=== PATIENT | male | born 1965 | race Caucasian/White ===

== ENCOUNTER → 2017-11-01 | Outpatient (CLI) | payer OTHER ==
--- NOTE | 2017-11-01 15:29 | KCIC ---
Two-view left hip dated 11/01/2017. No comparison available. Clinical indication: Hip pain. History of avascular necrosis. FINDINGS: 2 views left hip show irregular zone of geographic sclerosis at the weightbearing surfaces femoral head. This appears to involve at least 50 percent of the articular surface. There is no subchondral collapse. Osseous structures otherwise unremarkable. IMPRESSION: Avascular necrosis of the left femoral head without definite subchondral collapse. If indicated, MRI could more accurately evaluate. Electronically signed by: Trent Lee MD (11/01/2017 3:25 PM) [id number]
== END | disposition home or self-care (01) ==
LOC: KCIC 13:15
PROVIDERS: ATTEND Family Medicine
DX: M87.852 Other osteonecrosis, left femur (principal)
CPT/HCPCS: 73502

== ENCOUNTER 2020-03-24 08:42 | Emergency (ER) | payer SELFPAY ==
[~2020-03-24] VITALS: Ht 175.3 cm; Wt 82.0 kg
[2020-03-24 09:42] VITALS: BP 126/80
[2020-03-24 09:46] LABS: BASO % 1 % (0-3); EOS # 0.2 x10^3/uL (0.0-0.7); EOS % 3 % (0-3); HEMATOCRIT 37.9 % (39.0-53.0); HEMOGLOBIN 12.9 g/dL (13.0-17.5); LYMPH # 1.1 x10^3/uL (1.0-4.8); LYMPH % 17 % (24-48); MEAN CORPUSCULAR HEMOGLOBIN 30 pg (25-35); MEAN CORPUSCULAR HGB CONC 34 g/dL (31-37); MEAN CORPUSCULAR VOLUME 90 fL (79-100); MONO # 0.7 x10^3/uL (0.0-1.1); MONO % 10 % (0-9); NEUT # 4.6 x10^3/uL (1.8-7.7); NEUT % 70 % (31-73); PLATELET COUNT 99 x10^3/uL (140-400); RED BLOOD COUNT 4.24 x10^6/uL (4.30-5.70); RED CELL DISTRIBUTION WIDTH 15.7 % (11.5-14.5); WHITE BLOOD COUNT 6.6 x10^3/uL (4.0-11.0)
[2020-03-24 09:54] LABS: CALCIUM 8.3 mg/dL (8.5-10.1); CREATININE 0.7 mg/dL (0.7-1.3); GFR 116.7; POTASSIUM 3.6 mmol/L (3.5-5.1)
[2020-03-24 09:58] LABS: ALBUMIN/GLOBULIN RATIO 1.2 (1.0-1.7); MAGNESIUM 1.6 mg/dL (1.8-2.4); TOTAL BILIRUBIN 0.6 mg/dL (0.2-1.0); TOTAL PROTEIN 7.4 g/dL (6.4-8.2)
--- NOTE | 2020-03-24 10:23 | PHYS DOC ---
Past Medical History Past Medical History: GERD, Hypertension Past Surgical History: Other Additional Past Surgical Histo: R hip replacement, hernia Smoking Status: Never Smoker Alcohol Use: Heavy Adult General Chief Complaint Chief Complaint: ALCOHOL INTOXICATION HPI HPI Patient is a 55 year old male with history of alcoholism who presents for medical screening exam by EMS. Patient has been binge drinking daily for the past 2-3 weeks and assumes 12-18 beers daily. Patient reports tremors and feeling unsteady on his feet. Denies chest pain palpitations, history of withdrawal seizures and hallucinations. No pain, nausea vomiting, hematemesis, coffee-ground emesis, melena. No recent falls or injuries. No other acute symptoms or complaints. [] Review of Systems Review of Systems ROS All other systems were reviewed and found to be within normal limits, except as documented in this note. Current Medications Current Medications Current Medications Medications (Trade) Dose Ordered Sig/Sheri Start Time Stop Time Status Last Admin Dose Admin Lorazepam (Ativan) 2 mg 1X ONCE 03/24/20 10:45 03/24/20 10:46 UNV Physical Exam Physical Exam Constitutional: Well developed, well nourished, no acute distress, non-toxic appearance. [] HENT: Normocephalic, atraumatic, bilateral external ears normal, oropharynx moist, nose normal. [] Eyes: PERRLA, EOMI, conjunctiva normal. [] Neck: Normal range of motion, no tenderness. [] Cardiovascular:Heart rate regular rhythm, no murmur [] Lungs & Thorax: Bilateral breath sounds clear to auscultation [] Abdomen: Bowel sounds normal, soft, no tenderness. [] Skin: Warm, dry, no erythema, no rash. [] Back: No tenderness. [] Extremities: No tenderness, no edema. [] Neurologic: Alert and oriented X 3, normal motor function, normal sensory function, no focal deficits noted. [] Psychologic: Affect normal, judgement normal, mood normal. [] Current Patient Data Vital Signs Vital Signs Date Time Temp Pulse Resp B/P (MAP) Pulse Ox O2 Delivery O2 Flow Rate FiO2 03/24/20 09:42 86 16 126/80 (95) 95 Room Air 03/24/20 08:56 97.5 97.5 Lab Values Laboratory Tests Test 03/24/20 09:34 White Blood Count 6.6 x10^3/uL (4.0-11.0) Red Blood Count 4.24 x10^6/uL (4.30-5.70) L Hemoglobin 12.9 g/dL (13.0-17.5) L Hematocrit 37.9 % (39.0-53.0) L Mean Corpuscular Volume 90 fL (79-100) Mean Corpuscular Hemoglobin 30 pg (25-35) Mean Corpuscular Hemoglobin Concent 34 g/dL (31-37) Red Cell Distribution Width 15.7 % (11.5-14.5) H Platelet Count 99 x10^3/uL (140-400) L Neutrophils (%) (Auto) 70 % (31-73) Lymphocytes (%) (Auto) 17 % (24-48) L Monocytes (%) (Auto) 10 % (0-9) H Eosinophils (%) (Auto) 3 % (0-3) Basophils (%) (Auto) 1 % (0-3) Neutrophils # (Auto) 4.6 x10^3/uL (1.8-7.7) Lymphocytes # (Auto) 1.1 x10^3/uL (1.0-4.8) Monocytes # (Auto) 0.7 x10^3/uL (0.0-1.1) Eosinophils # (Auto) 0.2 x10^3/uL (0.0-0.7) Basophils # (Auto) 0.0 x10^3/uL (0.0-0.2) Sodium Level 127 mmol/L (136-145) L Potassium Level 3.6 mmol/L (3.5-5.1) Chloride Level 87 mmol/L (98-107) L Carbon Dioxide Level 25 mmol/L (21-32) Anion Gap 15 (6-14) H Blood Urea Nitrogen 6 mg/dL (8-26) L Creatinine 0.7 mg/dL (0.7-1.3) Estimated GFR (Cockcroft-Gault) 116.7 BUN/Creatinine Ratio 9 (6-20) Glucose Level 92 mg/dL (70-99) Calcium Level 8.3 mg/dL (8.5-10.1) L Magnesium Level 1.6 mg/dL (1.8-2.4) L Total Bilirubin 0.6 mg/dL (0.2-1.0) Aspartate Amino Transferase (AST) 126 U/L (15-37) H Alanine Aminotransferase (ALT) 75 U/L (16-63) H Alkaline Phosphatase 53 U/L (46-116) Total Protein 7.4 g/dL (6.4-8.2) Albumin 4.0 g/dL (3.4-5.0) Albumin/Globulin Ratio 1.2 (1.0-1.7) Laboratory Tests 03/24/20 09:34 Laboratory Tests 03/24/20 09:34 EKG EKG [] Radiology/Procedures Radiology/Procedures ] Course & Med Decision Making Course & Med Decision Making Pertinent Labs and Imaging studies reviewed. (See chart for details) [Alcoholic potomania with withdrawl tremors in the ED. Hospital admission recommended. Patient declines hospital admission and will be discharged upon his request. Ativan given prior to discharge. Will treat withdrawal symptoms. Patient's spouse to take patient home. ] Dragon Disclaimer Dragon Disclaimer This electronic medical record was generated, in whole or in part, using a voice recognition dictation system. Departure Departure Impression: Primary Impression: Withdrawal symptoms, alcohol Additional Impression: Hyponatremia Disposition: 01 HOME, SELF-CARE Condition: STABLE Referrals: JENNI DURHAM MD (PCP) Patient Instructions: Alcohol Withdrawal, Hyponatremia, [id number] Additional Instructions: Please follow-up with outpatient rehabilitation and AA sponsor. Take daily multivitamin and Ativan for withdrawal symptoms. Return to the ED if new or wo rsening symptoms. Problem Qualifiers DELORES ESCALANTE DO Mar 24, 2020 10:23
[2020-03-24] MEDS ORDERED: LORA-434 PO (10:44)
[2020-03-24] MEDS ORDERED: LORazepam 0.5 MG TABLET PO ONE (10:45)
== END 2020-03-24 13:33 | disposition home or self-care (01) ==
LOC: ER 08:42
DX: F10.239 Alcohol dependence with withdrawal, unspecified (principal); Y90.9 Presence of alcohol in blood, level not specified; E87.1 Hypo-osmolality and hyponatremia; K21.9 Gastro-esophageal reflux disease without esophagitis; I10 Essential (primary) hypertension
CPT/HCPCS: 36415; 80053; 83735; 85025; 99284

== ENCOUNTER 2020-06-15 17:36 | Inpatient (IN) | payer SELFPAY ==
[~2020-06-15] VITALS: Ht 152.4 cm; Wt 65.6 kg
[~2020-06-15 17:36] MED LIST: LORA-434 PO
[2020-06-15] MEDS ORDERED: IV NORMAL SALINE 1000ML BAG 1,000 ML IV SCH (17:43)
--- NOTE | 2020-06-15 17:43 | PHYS DOC ---
Past Medical History Past Medical History: GERD, Hypertension Past Surgical History: Other Additional Past Surgical Histo: R hip replacement, hernia Smoking Status: Never Smoker Alcohol Use: Heavy General Adult HPI: HPI: Patient is a 55 year old male who presents emergency department with altered mental status. Patient cannot provide any history. History is obtained from paramedics. They state his daughter found him unresponsive and stiff. She states he is a severe alcoholic and drinks 30-50 beers per day. She states he was arrested for DUI yesterday so he is not drank since last night. Patient cannot tell me what day it is or where he is at. He does know his name. He has no focal neuro deficits and is moving all of his extremities. Review of Systems: Review of Systems: Constitutional: Denies fever or chills. [] Eyes: Denies change in visual acuity. [] HENT: Denies nasal congestion or sore throat. [] Respiratory: Denies cough or shortness of breath. [] Cardiovascular: Denies chest pain or edema. [] GI: Denies abdominal pain, nausea, vomiting, bloody stools or diarrhea. [] : Denies dysuria. [] Musculoskeletal: Denies back pain or joint pain. [] Integument: Denies rash. [] Neurologic: Denies headache, focal weakness or sensory changes. [] Endocrine: Denies polyuria or polydipsia. [] Lymphatic: Denies swollen glands. [] Psychiatric: Denies depression or anxiety. [] Heart Score: Risk Factors: Risk Factors: DM, Current or recent (<one month) smoker, HTN, HLP, family history of CAD, obesity. Risk Scores: Score 0 - 3: 2.5% MACE over next 6 weeks - Discharge Home Score 4 - 6: 20.3% MACE over next 6 weeks - Admit for Clinical Observation Score 7 - 10: 72.7% MACE over next 6 weeks - Early Invasive Strategies Allergies: Allergies: Allergies Coded Allergies Type Severity Reaction Last Updated Verified No Known Drug Allergies 03/24/20 No Physical Exam: PE: Constitutional: Middle aged male who appears slightly agitated] HENT: Normocephalic, atraumatic, bilateral external ears normal, oropharynx moist, no oral exudates, nose normal. [] Eyes: PERRLA, EOMI, conjunctiva normal, no discharge. [] Neck: Normal range of motion, no tenderness, supple, no stridor. [] Cardiovascular:Tachycardic Lungs & Thorax: Bilateral breath sounds clear to auscultation [] Abdomen: Bowel sounds normal, soft, no tenderness, no masses, no pulsatile masses. [] Skin: Warm, dry, no erythema, no rash. [] Back: No tenderness, no CVA tenderness. [] Extremities: No tenderness, no cyanosis, no clubbing, ROM intact, no edema. [] Neurologic: Alert to person only. Patient is with resting tremor] Psychologic: mild agitation EKG: EKG: [] Radiology/Procedures: Radiology/Procedures: [] Course & Med Decision Making: Course & Med Decision Making Pertinent Labs and Imaging studies reviewed. (See chart for details) Patient with likely alcohol withdrawal. He appears to be in delirium tremens. He will be given Ativan and IV fluids. He will need to be admitted for alcohol withdrawal. Dragon Disclaimer: Dragon Disclaimer: This electronic medical record was generated, in whole or in part, using a voice recognition dictation system. Departure Departure Impression: Primary Impression: Delirium tremens Additional Impression: Alcohol withdrawal delirium Disposition: ADMITTED INPATIENT Admitting Physician: SHADIA Condition: GUARDED Referrals: JENNI DURHAM MD (PCP) Justicifation of Admission Dx: Justifications for Admission: Justification of Admission Dx: Yes Critical Care Time Critical care time was [35] minutes exclusive of procedures. Time was spent at the bedside, reassessment, discussion with family, documenting, reviewing labs and records. LAUREL SUTTON DO Jun 15, 2020 17:43
[2020-06-15] MEDS ORDERED: MULTIVIT INFUSN,ADULT 4,VIT K 10 ML, THIAMINE INJ 100 MG, FOLIC ACID INJ 1 MG in IV NOR... IV ONE ×2 (17:45→22:15)
[2020-06-15 18:15] LABS: BASO # 0.1 x10^3/uL (0.0-0.2); BASO % 1 % (0-3); EOS % 0 % (0-3); HEMATOCRIT 38.3 % (39.0-53.0); HEMOGLOBIN 13.6 g/dL (13.0-17.5); LYMPH # 0.5 x10^3/uL (1.0-4.8); LYMPH % 5 % (24-48); MEAN CORPUSCULAR HEMOGLOBIN 34 pg (25-35); MEAN CORPUSCULAR HGB CONC 36 g/dL (31-37); MEAN CORPUSCULAR VOLUME 95 fL (79-100); MONO # 0.9 x10^3/uL (0.0-1.1); MONO % 8 % (0-9); NEUT # 9.2 x10^3/uL (1.8-7.7); NEUT % 86 % (31-73); PLATELET COUNT 152 x10^3/uL (140-400); RED BLOOD COUNT 4.03 x10^6/uL (4.30-5.70); RED CELL DISTRIBUTION WIDTH 13.2 % (11.5-14.5); WHITE BLOOD COUNT 10.7 x10^3/uL (4.0-11.0)
[2020-06-15 18:23] LABS: CALCIUM 9.2 mg/dL (8.5-10.1); GFR 77.3; POTASSIUM 3.2 mmol/L (3.5-5.1)
[2020-06-15 18:24] LABS: PROTHROMBIN TIME PATIENT 12.3 SEC (11.7-14.0)
[2020-06-15 18:31] LABS: ALBUMIN 4.2 g/dL (3.4-5.0); DIRECT BILIRUBIN 0.5 mg/dL (0.0-0.2); MAGNESIUM 1.7 mg/dL (1.8-2.4); TOTAL BILIRUBIN 1.8 mg/dL (0.2-1.0); TOTAL PROTEIN 8.2 g/dL (6.4-8.2)
[2020-06-15 19:34] LABS: % LYMPHS 7 % (24-48); % MONOS 7 % (0-10); % SEGS 86 % (35-66)
[2020-06-15 19:35] LABS: PLT ESTIMATE ADEQUATE (ADEQUATE); TOXIC GRANULATION SLIGHT
--- NOTE | 2020-06-15 19:38 | RAD ---
Exam: CT head INDICATION: Altered mental status TECHNIQUE: Sequential axial images through the head were obtained without the administration of IV contrast. Comparisons: None FINDINGS: No focal parenchymal lesion or hemorrhage is identified. There is no midline shift or sulcal effacement. No acute vascular territory infarction is identified. Damian-white distinction is preserved. The ventricular system is within normal limits without compression hydrocephalus. The basal cisterns are well maintained. The visualized portions of the paranasal sinuses and mastoid air cells are well-pneumatized. No acute fractures. IMPRESSION: No acute intracranial abnormality. Exposure: One or more of the following in the visualized dose reduction techniques were utilized for this examination: 1. Automated exposure control 2. Adjustment of the MA and/or KV according to patient size Use of iterative of reconstructive technique Electronically signed by: Kavitha Hanson MD (06/15/2020 7:35 PM) [id number]
[2020-06-15] MEDS ORDERED: cloNIDine HCL 0.1 MG TABLET PO PRN (19:45)
[2020-06-15] MEDS ORDERED: LORazepam 1 MG TABLET PO PRN ×2 (19:45)
[2020-06-15] MEDS: ENOXAPARIN 40 MG/0.4 ML SYRINGE. SQ SCH (20:04)
--- NOTE | 2020-06-15 20:52 | PDOC1 ---
History and Physical Date of Admission: Date of Admission DATE: 06/15/20 TIME: 20:30 History of Present Illness: HPI: Patient is a 55-year-old male with past medical history of GERD, hypertension, and heavy chronic alcohol abuse for many years who is brought to the ED after being found unresponsive at home by her daughter. Most of the history was obtained from the patient's who states that the patient was arrested for DUI the day before and he has not had an alcoholic drink since released from halfway. When found down at home, there was no incontinence or stooling. Patient's states that he is a severe alcoholic drinks about 30-50 beers per day. He has multiple falls at home and has had multiple ecchymosis on his body. Currently upon questioning the patient is only able to respond to his name. But he does not know the location of the time. He is extremely agitated and distracted with questioning. Past Medical/Surgical History: PMH/PSH: Asthma, GERD, Hypertension R hip replacement, hernia Allergies: Allergies: Coded Allergies: No Known Drug Allergies (Unverified , 03/24/20) Family History: Family History: None Social History: Social History: Denies smoking Patient is a heavy drinker of about 30 bottles 16 ounces of beer daily. He has been drinking like this for a long time Denies drug abuse Current Medications: Current Medications Current Medications Sodium Chloride 1,000 ml @ 1,000 mls/hr Q1H IV Last administered on 06/15/20at 18:08; Start 06/15/20 at 17:43; Stop 06/15/20 at 18:42; Status DC Multivitamins 10 ml/Thiamine HCl 100 mg/Folic Acid 1 mg/Sodium Chloride 1,011.2 ml @ 1,000 mls/ hr 1X ONCE IV Last administered on 06/15/20at 18:16; Start 06/15/20 at 17:45; Stop 06/15/20 at 18:45; Status DC Lorazepam (Ativan Inj) 2 mg 1X ONCE IVP Last administered on 06/15/20at 18:07; Start 06/15/20 at 17:45; Stop 06/15/20 at 17:48; Status DC Lorazepam (Ativan Inj) 2 mg 1X ONCE IVP Last administered on 06/15/20at 18:49; Start 06/15/20 at 19:00; Stop 06/15/20 at 19:01; Status DC Multivitamins 10 ml/Thiamine HCl 100 mg/Folic Acid 1 mg/Sodium Chloride 1,011.2 ml @ 100 mls/ hr DAILY IV ; Start 06/16/20 at 09:00; Stop 06/19/20 at 19:07 Multivitamins (Thera M Plus) 1 tab DAILY PO ; Start 06/20/20 at 09:00 Folic Acid (Folic Acid) 1 mg DAILY PO ; Start 06/20/20 at 09:00 Thiamine HCl 300 mg/Dextrose 53 ml @ 100 mls/hr DAILY IV ; Start 06/20/20 at 09:00; Stop 06/24/20 at 09:32 Lorazepam (Ativan) 4 mg PRN Q1HR PRN PO For CIWA 8-14; Start 06/15/20 at 19:45 Lorazepam (Ativan) 8 mg PRN Q1HR PRN PO For CIWA 15 or greater; Start 06/15/20 at 19:45 Haloperidol Lactate (Haldol Inj) 5 mg PRN Q4HRS PRN IVP Hallucinatns,Confusn,Delirium; Start 06/15/20 at 19:45 Diphenhydramine HCl (Benadryl) 25 mg PRN Q15MIN PRN IVP EPS symptoms 2'Haldol admin; Start 06/15/20 at 19:45 Clonidine HCl (Catapres) 0.1 mg PRN Q1HR PRN PO SBP > 180 or DBP > 100, MRX3; Start 06/15/20 at 19:45 Lorazepam (Ativan Inj) 2 mg PRN Q15MIN PRN IV SEE COMMENTS Last administered on 06/15/20at 19:54; Start 06/15/20 at 19:45 Enoxaparin Sodium (Lovenox 40mg Syringe) 40 mg Q24H SQ Last administered on 06/15/20at 20:04; Start 06/15/20 at 20:00 Heparin Sodium (Porcine) (Heparin Sodium) 5,000 unit Q12HR SQ ; Start 06/15/20 at 21:00; Status UNV Active Scripts Active Ativan (Lorazepam) 1 Mg Tablet 2 Mg PO TID 7 Days ROS: Review of Systems Review of System REVIEW OF SYSTEMS: GENERAL: Denies weakness SKIN: No bruising, hair changes or rashes. EYES: No blurred, double or loss of vision. NOSE AND THROAT: No history of nosebleeds, hoarseness or sore throat. HEART: No history of palpitations, chest pain or shortness of breath on exertion. LUNGS: Denies cough, hemoptysis, wheezing or shortness of breath. GASTROINTESTINAL: Denies changes in appetite, nausea, vomiting, diarrhea or constipation. GENITOURINARY: No history of frequency, urgency, hesitancy or nocturia. NEUROLOGIC: Denies history of numbness, tingling, or tremor. PSYCHIATRIC: No history of panic, anxiety or depression. ENDOCRINE: No history of heat or cold intolerance, polyuria or polydipsia. EXTREMITIES: Denies joint pain, pain on walking or stiffness. Physical Exam: Vital Signs: Vital Signs Date Time Temp Pulse Resp B/P (MAP) Pulse Ox O2 Delivery O2 Flow Rate FiO2 06/15/20 19:47 82 144/100 (115) 97 Room Air 06/15/20 18:17 22 06/15/20 17:51 98.5 98.5 Physcial Exam: GEN: Patient has moderate agitation on examination. HEENT: Normal cephalic, atraumatic, external auditory canals are patent. Dry mucous membranes. There is some nystagmus on exam EYES: Extraocular muscles are intact, pupil are equally round and reactive to light and accommodation MUSCULOSKELETAL: Patient has coarse tremors and asterixis on exam. ENDOCRINE: No thyromegaly was palpated LYMPHATICS: No cervical chain or axillary nodes were noted HEMATOPOIETIC: No bruising NECK: Supple, no JVD, no thyromegaly was noted LUNGS: Clear to auscultation in all lung archer without rhonchi or wheezing HEART: RRR, S!, S2 present. Peripheral pulses intact, no obvious murmurs noted ABDOMEN: Soft, nontender. Positive bowel sounds, no organomegaly, normal bowel sounds EXTREMITIES: Without clubbing, cyanosis, or edema. Pedal pulses intact. Negative Homans sign NEUROLOGIC: Patient is alert and awake and oriented only to himself. He is able to follow commands. He is has intention tremors. He appears to be very agitated attempts to scratch himself picked at his monitor leads persistently. PSYCHIATRIC: Normal affect, normal mood. Stable SKIN: No ulcerations or rashes, good skin turgor, no jaundice VASCULAR: Good capillary refill, neurovascular bundle appears to be intact Labs: Labs: Laboratory Tests Test 06/15/20 18:06 White Blood Count 10.7 x10^3/uL (4.0-11.0) Red Blood Count 4.03 x10^6/uL (4.30-5.70) Hemoglobin 13.6 g/dL (13.0-17.5) Hematocrit 38.3 % (39.0-53.0) Mean Corpuscular Volume 95 fL (79-100) Mean Corpuscular Hemoglobin 34 pg (25-35) Mean Corpuscular Hemoglobin Concent 36 g/dL (31-37) Red Cell Distribution Width 13.2 % (11.5-14.5) Platelet Count 152 x10^3/uL (140-400) Neutrophils (%) (Auto) 86 % (31-73) Lymphocytes (%) (Auto) 5 % (24-48) Monocytes (%) (Auto) 8 % (0-9) Eosinophils (%) (Auto) 0 % (0-3) Basophils (%) (Auto) 1 % (0-3) Neutrophils # (Auto) 9.2 x10^3/uL (1.8-7.7) Lymphocytes # (Auto) 0.5 x10^3/uL (1.0-4.8) Monocytes # (Auto) 0.9 x10^3/uL (0.0-1.1) Eosinophils # (Auto) 0.0 x10^3/uL (0.0-0.7) Basophils # (Auto) 0.1 x10^3/uL (0.0-0.2) Segmented Neutrophils % 86 % (35-66) Lymphocytes % 7 % (24-48) Monocytes % 7 % (0-10) Toxic Granulation Slight Platelet Estimate Adequate (ADEQUATE) Prothrombin Time 12.3 SEC (11.7-14.0) Prothromb Time International Ratio 1.0 (0.8-1.1) Activated Partial Thromboplast Time 25 SEC (24-38) Sodium Level 125 mmol/L (136-145) Potassium Level 3.2 mmol/L (3.5-5.1) Chloride Level 85 mmol/L (98-107) Carbon Dioxide Level 27 mmol/L (21-32) Anion Gap 13 (6-14) Blood Urea Nitrogen 11 mg/dL (8-26) Creatinine 1.0 mg/dL (0.7-1.3) Estimated GFR (Cockcroft-Gault) 77.3 Glucose Level 127 mg/dL (70-99) Calcium Level 9.2 mg/dL (8.5-10.1) Magnesium Level 1.7 mg/dL (1.8-2.4) Total Bilirubin 1.8 mg/dL (0.2-1.0) Direct Bilirubin 0.5 mg/dL (0.0-0.2) Aspartate Amino Transf (AST/SGOT) 51 U/L (15-37) Alanine Aminotransferase (ALT/SGPT) 44 U/L (16-63) Alkaline Phosphatase 57 U/L (46-116) Total Protein 8.2 g/dL (6.4-8.2) Albumin 4.2 g/dL (3.4-5.0) Ethyl Alcohol Level < 10 mg/dL (0-10) Laboratory Tests Test 06/15/20 18:06 White Blood Count 10.7 x10^3/uL (4.0-11.0) Red Blood Count 4.03 x10^6/uL (4.30-5.70) Hemoglobin 13.6 g/dL (13.0-17.5) Hematocrit 38.3 % (39.0-53.0) Mean Corpuscular Volume 95 fL (79-100) Mean Corpuscular Hemoglobin 34 pg (25-35) Mean Corpuscular Hemoglobin Concent 36 g/dL (31-37) Red Cell Distribution Width 13.2 % (11.5-14.5) Platelet Count 152 x10^3/uL (140-400) Neutrophils (%) (Auto) 86 % (31-73) Lymphocytes (%) (Auto) 5 % (24-48) Monocytes (%) (Auto) 8 % (0-9) Eosinophils (%) (Auto) 0 % (0-3) Basophils (%) (Auto) 1 % (0-3) Neutrophils # (Auto) 9.2 x10^3/uL (1.8-7.7) Lymphocytes # (Auto) 0.5 x10^3/uL (1.0-4.8) Monocytes # (Auto) 0.9 x10^3/uL (0.0-1.1) Eosinophils # (Auto) 0.0 x10^3/uL (0.0-0.7) Basophils # (Auto) 0.1 x10^3/uL (0.0-0.2) Segmented Neutrophils % 86 % (35-66) Lymphocytes % 7 % (24-48) Monocytes % 7 % (0-10) Toxic Granulation Slight Platelet Estimate Adequate (ADEQUATE) Prothrombin Time 12.3 SEC (11.7-14.0) Prothromb Time International Ratio 1.0 (0.8-1.1) Activated Partial Thromboplast Time 25 SEC (24-38) Sodium Level 125 mmol/L (136-145) Potassium Level 3.2 mmol/L (3.5-5.1) Chloride Level 85 mmol/L (98-107) Carbon Dioxide Level 27 mmol/L (21-32) Anion Gap 13 (6-14) Blood Urea Nitrogen 11 mg/dL (8-26) Creatinine 1.0 mg/dL (0.7-1.3) Estimated GFR (Cockcroft-Gault) 77.3 Glucose Level 127 mg/dL (70-99) Calcium Level 9.2 mg/dL (8.5-10.1) Magnesium Level 1.7 mg/dL (1.8-2.4) Total Bilirubin 1.8 mg/dL (0.2-1.0) Direct Bilirubin 0.5 mg/dL (0.0-0.2) Aspartate Amino Transf (AST/SGOT) 51 U/L (15-37) Alanine Aminotransferase (ALT/SGPT) 44 U/L (16-63) Alkaline Phosphatase 57 U/L (46-116) Total Protein 8.2 g/dL (6.4-8.2) Albumin 4.2 g/dL (3.4-5.0) Ethyl Alcohol Level < 10 mg/dL (0-10) Assessment/Plan Assessment/Plan Acute alcohol withdrawal Acute electrolyte derangement Acute metabolic encephalopathy Concern for Wernicke's encephalopathy Acute syncopal episode Multiple falls Asthma Hypertension Admit to ICU for close monitoring Start CIWA treatment protocol Continue banana bag replacement Add additional thiamine 300 mg IV daily Repeat chemistries in the morning Fall precautions Every [address] head Lovenox for DVT prophylaxis Regular diet Full code Discussed with business management analyst consult for discharge planning Justicifation of Admission Dx: Justifications for Admission: Justification of Admission Dx: Yes NURY HANDY MD Jun 15, 2020 20:52
[2020-06-15] MEDS ORDERED: HEPARIN for SUB-Q USE 5,000 UNIT/ML VIAL. SQ SCH (21:00)
[2020-06-15 21:30] VITALS: BP 152/90
[2020-06-15 22:00] VITALS: BP 125/79
[2020-06-15] MEDS: IV RINGERS,LACTATED 1000ML 1,000 ML IV SCH (22:39)
[2020-06-15] MEDS: diphenhydrAMINE 50 MG/ML VIAL IVP PRN (22:42)
[2020-06-15] MEDS: HALOPERIDOL LACTATE 5 MG/ML VIAL. IVP PRN (22:42)
[2020-06-15] MEDS: NICOTINE 21MG PATCH. TD SCH (22:44)
[2020-06-15 23:00] VITALS: BP 111/69
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
[2020-06-16] VITALS (24 sets, daily range): BP systolic 82–169; BP diastolic 54–101
[2020-06-16] MEDS: HALOPERIDOL LACTATE 5 MG/ML VIAL. IVP PRN (04:01)
[2020-06-16] MEDS: diphenhydrAMINE 50 MG/ML VIAL IVP PRN (04:01)
[2020-06-16 04:41] LABS: BASO % 0 % (0-3); EOS % 1 % (0-3); HEMATOCRIT 34.1 % (39.0-53.0); HEMOGLOBIN 11.6 g/dL (13.0-17.5); LYMPH # 0.7 x10^3/uL (1.0-4.8); LYMPH % 10 % (24-48); MEAN CORPUSCULAR HEMOGLOBIN 33 pg (25-35); MEAN CORPUSCULAR HGB CONC 34 g/dL (31-37); MEAN CORPUSCULAR VOLUME 96 fL (79-100); MONO # 0.6 x10^3/uL (0.0-1.1); MONO % 9 % (0-9); NEUT # 5.6 x10^3/uL (1.8-7.7); NEUT % 80 % (31-73); PLATELET COUNT 104 x10^3/uL (140-400); RED BLOOD COUNT 3.55 x10^6/uL (4.30-5.70); WHITE BLOOD COUNT 6.9 x10^3/uL (4.0-11.0)
[2020-06-16 05:09] LABS: ALBUMIN 3.4 g/dL (3.4-5.0); CALCIUM 7.8 mg/dL (8.5-10.1); CREATININE 0.7 mg/dL (0.7-1.3); GFR 116.7; TOTAL BILIRUBIN 1.2 mg/dL (0.2-1.0); TOTAL PROTEIN 6.8 g/dL (6.4-8.2)
[2020-06-16 05:24] LABS: POTASSIUM 2.5 mmol/L (3.5-5.1)
[2020-06-16] MEDS ORDERED: IV NORMAL SALINE 500ML BAG 500 ML IV PRN (05:45)
[2020-06-16] MEDS ORDERED: ATROPINE 0.5 MG/5 ML DISP.SYRINGE. IV PRN (05:45)
[2020-06-16] MEDS: POTASSIUM CHLORIDE 10MEQ 100 ML IV SCH ×12 (05:50→14:37)
[2020-06-16] MEDS: DEXMEDETOMIDINE 400 MCG in IV NORMAL SALINE 100ML 96 ML IV PRN ×3 (05:53→20:14)
--- NOTE | 2020-06-16 06:18 | EKG ---
[facility] [address] [place] [address] Test Date: 2020-06-15 Test Time: 18:06:52 Pat Name: JHONATAN RAMON Department: Room: Gender: M [employer]: : 1965 Requested By: LAUREL SUTTON Order Number: [id number] Reading MD: Measurements Intervals [place] Rate: 69 P: -35 MD: 166 QRS: -8 QRSD: 88 T: 39 QT: 426 QTc: 458 Interpretive Statements SINUS RHYTHM LEFTWARD AXIS INCOMPLETE RIGHT BUNDLE BRANCH BLOCK OTHERWISE NORMAL ECG RI6.01 Compared to ECG 06/15/2020 18:05:04 Left-axis deviation now present
[2020-06-16 08:27] LABS: BASE EXCESS ABG 0 mmol/L (-3-3); HCO3 ABG 24 mmol/L (21-28); PCO2 ABG 36 mmHg (35-46); PO2 ABG 55 mmHg (75-108); SAT O2 ABG 87 % (92-99)
[2020-06-16] MEDS: IV RINGERS,LACTATED 1000ML 1,000 ML IV SCH ×2 (08:30→18:30)
[2020-06-16] MEDS ORDERED: THIAMINE INJ 300 MG in IV DEXTROSE 5% 50 ML IV SCH (09:00)
[2020-06-16 09:04] LABS: FIO2 ABG 60
[2020-06-16] MEDS ORDERED: QUIN40TA16 PO (09:10)
[2020-06-16] MEDS ORDERED: ATEN100T PO (09:10)
[2020-06-16] MEDS ORDERED: GABA300C18 PO (09:10)
[2020-06-16] MEDS ORDERED: OMEP40CA45 PO (09:10)
[2020-06-16] MEDS ORDERED: AMLO5TAB4 PO (09:10)
[2020-06-16] MEDS ORDERED: FLUO20CA20 PO (09:10)
[2020-06-16] MEDS: NICOTINE 21MG PATCH. TD SCH (10:38)
[2020-06-16] MEDS: MULTIVIT INFUSN,ADULT 4,VIT K 10 ML, THIAMINE INJ 100 MG, FOLIC ACID INJ 1 MG in IV NOR... IV SCH (10:38)
--- NOTE | 2020-06-16 10:49 | PDOC ---
PROGRESS NOTES Chief Complaint Chief Complaint ASSESSMENT Acute Hypoxic Resp Failure Acute Encephalopathy Severe EtOH Withdrawal with hx of EtOH seizure Hypokalemia Recent Incarceration COVID-19 rule out Thrombocytopenia ASSESSMENT monitor in ICU continue BIPAP support, blood gas okay. low threshold to intubate if resp status does not improve continue precidex drip/ativan etoh withdrawal protocol replace K+ pulm consult family updated on plan of care DVT PPX FULL CODE History of Present Illness History of Present Illness in resp distress this AM breathing 30x/min. ABG ordered and looks okay. trial of BIPAP this AM. family updated at bedside on plan of care. Vitals Vitals Vital Signs Date Time Temp Pulse Resp B/P (MAP) Pulse Ox O2 Delivery O2 Flow Rate FiO2 06/16/20 10:07 92 BiPAP/CPAP 06/16/20 07:00 98.0 120 28 83/54 (64) 3.0 98.0 Physical Exam General: moderate distress, Other Heart: Regular rate Lungs: Clear Abdomen: Normal bowel sounds, Soft Extremities: No clubbing, No cyanosis Skin: No rashes Labs LABS Laboratory Tests Test 06/15/20 18:06 06/16/20 04:16 06/16/20 08:00 White Blood Count 10.7 x10^3/uL (4.0-11.0) 6.9 x10^3/uL (4.0-11.0) Red Blood Count 4.03 x10^6/uL (4.30-5.70) 3.55 x10^6/uL (4.30-5.70) Hemoglobin 13.6 g/dL (13.0-17.5) 11.6 g/dL (13.0-17.5) Hematocrit 38.3 % (39.0-53.0) 34.1 % (39.0-53.0) Mean Corpuscular Volume 95 fL (79-100) 96 fL (79-100) Mean Corpuscular Hemoglobin 34 pg (25-35) 33 pg (25-35) Mean Corpuscular Hemoglobin Concent 36 g/dL (31-37) 34 g/dL (31-37) Red Cell Distribution Width 13.2 % (11.5-14.5) 13.0 % (11.5-14.5) Platelet Count 152 x10^3/uL (140-400) 104 x10^3/uL (140-400) Neutrophils (%) (Auto) 86 % (31-73) 80 % (31-73) Lymphocytes (%) (Auto) 5 % (24-48) 10 % (24-48) Monocytes (%) (Auto) 8 % (0-9) 9 % (0-9) Eosinophils (%) (Auto) 0 % (0-3) 1 % (0-3) Basophils (%) (Auto) 1 % (0-3) 0 % (0-3) Neutrophils # (Auto) 9.2 x10^3/uL (1.8-7.7) 5.6 x10^3/uL (1.8-7.7) Lymphocytes # (Auto) 0.5 x10^3/uL (1.0-4.8) 0.7 x10^3/uL (1.0-4.8) Monocytes # (Auto) 0.9 x10^3/uL (0.0-1.1) 0.6 x10^3/uL (0.0-1.1) Eosinophils # (Auto) 0.0 x10^3/uL (0.0-0.7) 0.0 x10^3/uL (0.0-0.7) Basophils # (Auto) 0.1 x10^3/uL (0.0-0.2) 0.0 x10^3/uL (0.0-0.2) Segmented Neutrophils % 86 % (35-66) Lymphocytes % 7 % (24-48) Monocytes % 7 % (0-10) Toxic Granulation Slight Platelet Estimate Adequate (ADEQUATE) Prothrombin Time 12.3 SEC (11.7-14.0) Prothromb Time International Ratio 1.0 (0.8-1.1) Activated Partial Thromboplast Time 25 SEC (24-38) Sodium Level 125 mmol/L (136-145) 131 mmol/L (136-145) Potassium Level 3.2 mmol/L (3.5-5.1) 2.5 mmol/L (3.5-5.1) Chloride Level 85 mmol/L (98-107) 93 mmol/L (98-107) Carbon Dioxide Level 27 mmol/L (21-32) 25 mmol/L (21-32) Anion Gap 13 (6-14) 13 (6-14) Blood Urea Nitrogen 11 mg/dL (8-26) 7 mg/dL (8-26) Creatinine 1.0 mg/dL (0.7-1.3) 0.7 mg/dL (0.7-1.3) Estimated GFR (Cockcroft-Gault) 77.3 116.7 Glucose Level 127 mg/dL (70-99) 79 mg/dL (70-99) Calcium Level 9.2 mg/dL (8.5-10.1) 7.8 mg/dL (8.5-10.1) Magnesium Level 1.7 mg/dL (1.8-2.4) Total Bilirubin 1.8 mg/dL (0.2-1.0) 1.2 mg/dL (0.2-1.0) Direct Bilirubin 0.5 mg/dL (0.0-0.2) Aspartate Amino Transf (AST/SGOT) 51 U/L (15-37) 39 U/L (15-37) Alanine Aminotransferase (ALT/SGPT) 44 U/L (16-63) 33 U/L (16-63) Alkaline Phosphatase 57 U/L (46-116) 47 U/L (46-116) Total Protein 8.2 g/dL (6.4-8.2) 6.8 g/dL (6.4-8.2) Albumin 4.2 g/dL (3.4-5.0) 3.4 g/dL (3.4-5.0) Ethyl Alcohol Level < 10 mg/dL (0-10) BUN/Creatinine Ratio 10 (6-20) Albumin/Globulin Ratio 1.0 (1.0-1.7) O2 Saturation 87 % (92-99) Arterial Blood pH 7.43 (7.35-7.45) Arterial Blood pCO2 at Patient Temp 36 mmHg (35-46) Arterial Blood pO2 at Patient Temp 55 mmHg (75-108) Arterial Blood HCO3 24 mmol/L (21-28) Arterial Blood Base Excess 0 mmol/L (-3-3) FiO2 60 Assessment and Plan Assessmemt and Plan Problems Medical Problems: (1) Alcohol withdrawal delirium Status: Acute (2) Delirium tremens Status: Acute Comment Review of Relevant I have reviewed the following items jeannie (where applicable) has been applied. Labs Laboratory Tests Test 06/15/20 18:06 06/16/20 04:16 06/16/20 08:00 White Blood Count 10.7 x10^3/uL (4.0-11.0) 6.9 x10^3/uL (4.0-11.0) Red Blood Count 4.03 x10^6/uL (4.30-5.70) 3.55 x10^6/uL (4.30-5.70) Hemoglobin 13.6 g/dL (13.0-17.5) 11.6 g/dL (13.0-17.5) Hematocrit 38.3 % (39.0-53.0) 34.1 % (39.0-53.0) Mean Corpuscular Volume 95 fL (79-100) 96 fL (79-100) Mean Corpuscular Hemoglobin 34 pg (25-35) 33 pg (25-35) Mean Corpuscular Hemoglobin Concent 36 g/dL (31-37) 34 g/dL (31-37) Red Cell Distribution Width 13.2 % (11.5-14.5) 13.0 % (11.5-14.5) Platelet Count 152 x10^3/uL (140-400) 104 x10^3/uL (140-400) Neutrophils (%) (Auto) 86 % (31-73) 80 % (31-73) Lymphocytes (%) (Auto) 5 % (24-48) 10 % (24-48) Monocytes (%) (Auto) 8 % (0-9) 9 % (0-9) Eosinophils (%) (Auto) 0 % (0-3) 1 % (0-3) Basophils (%) (Auto) 1 % (0-3) 0 % (0-3) Neutrophils # (Auto) 9.2 x10^3/uL (1.8-7.7) 5.6 x10^3/uL (1.8-7.7) Lymphocytes # (Auto) 0.5 x10^3/uL (1.0-4.8) 0.7 x10^3/uL (1.0-4.8) Monocytes # (Auto) 0.9 x10^3/uL (0.0-1.1) 0.6 x10^3/uL (0.0-1.1) Eosinophils # (Auto) 0.0 x10^3/uL (0.0-0.7) 0.0 x10^3/uL (0.0-0.7) Basophils # (Auto) 0.1 x10^3/uL (0.0-0.2) 0.0 x10^3/uL (0.0-0.2) Segmented Neutrophils % 86 % (35-66) Lymphocytes % 7 % (24-48) Monocytes % 7 % (0-10) Toxic Granulation Slight Platelet Estimate Adequate (ADEQUATE) Prothrombin Time 12.3 SEC (11.7-14.0) Prothromb Time International Ratio 1.0 (0.8-1.1) Activated Partial Thromboplast Time 25 SEC (24-38) Sodium Level 125 mmol/L (136-145) 131 mmol/L (136-145) Potassium Level 3.2 mmol/L (3.5-5.1) 2.5 mmol/L (3.5-5.1) Chloride Level 85 mmol/L (98-107) 93 mmol/L (98-107) Carbon Dioxide Level 27 mmol/L (21-32) 25 mmol/L (21-32) Anion Gap 13 (6-14) 13 (6-14) Blood Urea Nitrogen 11 mg/dL (8-26) 7 mg/dL (8-26) Creatinine 1.0 mg/dL (0.7-1.3) 0.7 mg/dL (0.7-1.3) Estimated GFR (Cockcroft-Gault) 77.3 116.7 Glucose Level 127 mg/dL (70-99) 79 mg/dL (70-99) Calcium Level 9.2 mg/dL (8.5-10.1) 7.8 mg/dL (8.5-10.1) Magnesium Level 1.7 mg/dL (1.8-2.4) Total Bilirubin 1.8 mg/dL (0.2-1.0) 1.2 mg/dL (0.2-1.0) Direct Bilirubin 0.5 mg/dL (0.0-0.2) Aspartate Amino Transf (AST/SGOT) 51 U/L (15-37) 39 U/L (15-37) Alanine Aminotransferase (ALT/SGPT) 44 U/L (16-63) 33 U/L (16-63) Alkaline Phosphatase 57 U/L (46-116) 47 U/L (46-116) Total Protein 8.2 g/dL (6.4-8.2) 6.8 g/dL (6.4-8.2) Albumin 4.2 g/dL (3.4-5.0) 3.4 g/dL (3.4-5.0) Ethyl Alcohol Level < 10 mg/dL (0-10) BUN/Creatinine Ratio 10 (6-20) Albumin/Globulin Ratio 1.0 (1.0-1.7) O2 Saturation 87 % (92-99) Arterial Blood pH 7.43 (7.35-7.45) Arterial Blood pCO2 at Patient Temp 36 mmHg (35-46) Arterial Blood pO2 at Patient Temp 55 mmHg (75-108) Arterial Blood HCO3 24 mmol/L (21-28) Arterial Blood Base Excess 0 mmol/L (-3-3) FiO2 60 Laboratory Tests Test 06/15/20 18:06 06/16/20 04:16 06/16/20 08:00 White Blood Count 10.7 x10^3/uL (4.0-11.0) 6.9 x10^3/uL (4.0-11.0) Red Blood Count 4.03 x10^6/uL (4.30-5.70) 3.55 x10^6/uL (4.30-5.70) Hemoglobin 13.6 g/dL (13.0-17.5) 11.6 g/dL (13.0-17.5) Hematocrit 38.3 % (39.0-53.0) 34.1 % (39.0-53.0) Mean Corpuscular Volume 95 fL (79-100) 96 fL (79-100) Mean Corpuscular Hemoglobin 34 pg (25-35) 33 pg (25-35) Mean Corpuscular Hemoglobin Concent 36 g/dL (31-37) 34 g/dL (31-37) Red Cell Distribution Width 13.2 % (11.5-14.5) 13.0 % (11.5-14.5) Platelet Count 152 x10^3/uL (140-400) 104 x10^3/uL (140-400) Neutrophils (%) (Auto) 86 % (31-73) 80 % (31-73) Lymphocytes (%) (Auto) 5 % (24-48) 10 % (24-48) Monocytes (%) (Auto) 8 % (0-9) 9 % (0-9) Eosinophils (%) (Auto) 0 % (0-3) 1 % (0-3) Basophils (%) (Auto) 1 % (0-3) 0 % (0-3) Neutrophils # (Auto) 9.2 x10^3/uL (1.8-7.7) 5.6 x10^3/uL (1.8-7.7) Lymphocytes # (Auto) 0.5 x10^3/uL (1.0-4.8) 0.7 x10^3/uL (1.0-4.8) Monocytes # (Auto) 0.9 x10^3/uL (0.0-1.1) 0.6 x10^3/uL (0.0-1.1) Eosinophils # (Auto) 0.0 x10^3/uL (0.0-0.7) 0.0 x10^3/uL (0.0-0.7) Basophils # (Auto) 0.1 x10^3/uL (0.0-0.2) 0.0 x10^3/uL (0.0-0.2) Segmented Neutrophils % 86 % (35-66) Lymphocytes % 7 % (24-48) Monocytes % 7 % (0-10) Toxic Granulation Slight Platelet Estimate Adequate (ADEQUATE) Prothrombin Time 12.3 SEC (11.7-14.0) Prothromb Time International Ratio 1.0 (0.8-1.1) Activated Partial Thromboplast Time 25 SEC (24-38) Sodium Level 125 mmol/L (136-145) 131 mmol/L (136-145) Potassium Level 3.2 mmol/L (3.5-5.1) 2.5 mmol/L (3.5-5.1) Chloride Level 85 mmol/L (98-107) 93 mmol/L (98-107) Carbon Dioxide Level 27 mmol/L (21-32) 25 mmol/L (21-32) Anion Gap 13 (6-14) 13 (6-14) Blood Urea Nitrogen 11 mg/dL (8-26) 7 mg/dL (8-26) Creatinine 1.0 mg/dL (0.7-1.3) 0.7 mg/dL (0.7-1.3) Estimated GFR (Cockcroft-Gault) 77.3 116.7 Glucose Level 127 mg/dL (70-99) 79 mg/dL (70-99) Calcium Level 9.2 mg/dL (8.5-10.1) 7.8 mg/dL (8.5-10.1) Magnesium Level 1.7 mg/dL (1.8-2.4) Total Bilirubin 1.8 mg/dL (0.2-1.0) 1.2 mg/dL (0.2-1.0) Direct Bilirubin 0.5 mg/dL (0.0-0.2) Aspartate Amino Transf (AST/SGOT) 51 U/L (15-37) 39 U/L (15-37) Alanine Aminotransferase (ALT/SGPT) 44 U/L (16-63) 33 U/L (16-63) Alkaline Phosphatase 57 U/L (46-116) 47 U/L (46-116) Total Protein 8.2 g/dL (6.4-8.2) 6.8 g/dL (6.4-8.2) Albumin 4.2 g/dL (3.4-5.0) 3.4 g/dL (3.4-5.0) Ethyl Alcohol Level < 10 mg/dL (0-10) BUN/Creatinine Ratio 10 (6-20) Albumin/Globulin Ratio 1.0 (1.0-1.7) O2 Saturation 87 % (92-99) Arterial Blood pH 7.43 (7.35-7.45) Arterial Blood pCO2 at Patient Temp 36 mmHg (35-46) Arterial Blood pO2 at Patient Temp 55 mmHg (75-108) Arterial Blood HCO3 24 mmol/L (21-28) Arterial Blood Base Excess 0 mmol/L (-3-3) FiO2 60 Medications Current Medications Sodium Chloride 1,000 ml @ 1,000 mls/hr Q1H IV Last administered on 06/15/20at 18:08; Start 06/15/20 at 17:43; Stop 06/15/20 at 18:42; Status DC Multivitamins 10 ml/Thiamine HCl 100 mg/Folic Acid 1 mg/Sodium Chloride 1,011.2 ml @ 1,000 mls/ hr 1X ONCE IV Last administered on 06/15/20at 18:16; Start 06/15/20 at 17:45; Stop 06/15/20 at 18:45; Status DC Lorazepam (Ativan Inj) 2 mg 1X ONCE IVP Last administered on 06/15/20at 18:07; Start 06/15/20 at 17:45; Stop 06/15/20 at 17:48; Status DC Lorazepam (Ativan Inj) 2 mg 1X ONCE IVP Last administered on 06/15/20at 18:49; Start 06/15/20 at 19:00; Stop 06/15/20 at 19:01; Status DC Multivitamins 10 ml/Thiamine HCl 100 mg/Folic Acid 1 mg/Sodium Chloride 1,011.2 ml @ 100 mls/ hr DAILY IV Last administered on 06/16/20at 10:38; Start 06/16/20 at 09:00; Stop 06/19/20 at 19:07 Multivitamins (Thera M Plus) 1 tab DAILY PO ; Start 06/20/20 at 09:00 Folic Acid (Folic Acid) 1 mg DAILY PO ; Start 06/20/20 at 09:00 Thiamine HCl 300 mg/Dextrose 53 ml @ 100 mls/hr DAILY IV ; Start 06/20/20 at 09:00; Stop 06/24/20 at 09:32 Lorazepam (Ativan) 4 mg PRN Q1HR PRN PO For CIWA 8-14; Start 06/15/20 at 19:45 Lorazepam (Ativan) 8 mg PRN Q1HR PRN PO For CIWA 15 or greater; Start 06/15/20 at 19:45 Haloperidol Lactate (Haldol Inj) 5 mg PRN Q4HRS PRN IVP Hallucinatns,Confusn,Delirium Last administered on 06/16/20at 04:01; Start 06/15/20 at 19:45 Diphenhydramine HCl (Benadryl) 25 mg PRN Q15MIN PRN IVP EPS symptoms 2'Haldol admin Last administered on 06/16/20at 04:01; Start 06/15/20 at 19:45 Clonidine HCl (Catapres) 0.1 mg PRN Q1HR PRN PO SBP > 180 or DBP > 100, MRX3; Start 06/15/20 at 19:45 Lorazepam (Ativan Inj) 2 mg PRN Q15MIN PRN IV SEE COMMENTS Last administered on 06/16/20at 05:42; Start 06/15/20 at 19:45 Enoxaparin Sodium (Lovenox 40mg Syringe) 40 mg Q24H SQ Last administered on 06/15/20at 20:04; Start 06/15/20 at 20:00 Heparin Sodium (Porcine) (Heparin Sodium) 5,000 unit Q12HR SQ ; Start 06/15/20 at 21:00; Status UNV Multivitamins 10 ml/Thiamine HCl 100 mg/Folic Acid 1 mg/Sodium Chloride 1,011.2 ml @ 100 mls/ hr 1X ONCE IV ; Start 06/15/20 at 22:15; Stop 06/16/20 at 08:21; Status UNV Ringer's Solution 1,000 ml @ 100 mls/hr Q10H IV Last administered on 06/15/20at 22:39; Start 06/15/20 at 22:30 Lorazepam (Ativan Inj) 4 mg PRN Q1HR PRN IV For CIWA 15 or greater Last administered on 06/16/20at 10:37; Start 06/15/20 at 22:15 Nicotine (Nicoderm Cq 21mg) 1 patch DAILY TD Last administered on 06/16/20at 10:38; Start 06/15/20 at 23:00 Dexmedetomidine HCl 400 mcg/ Sodium Chloride 100 ml @ 0 mls/hr CONT PRN IV AGITATION/ANXIETY Last administered on 06/16/20at 05:53; Start 06/16/20 at 05:45 Sodium Chloride 500 ml @ 500 mls/hr 1X PRN PRN IV LOW BP; Start 06/16/20 at 05:45 Atropine Sulfate (ATROPINE 0.5mg SYRINGE) 0.5 mg PRN Q5MIN PRN IV SEE COMMENTS; Start 06/16/20 at 05:45 Potassium Chloride/Water 100 ml @ 100 mls/hr Q1H IV Last administered on 06/16/20at 10:39; Start 06/16/20 at 06:00; Stop 06/16/20 at 17:59 Active Scripts Active Ativan (Lorazepam) 1 Mg Tablet 2 Mg PO TID 7 Days Reported Norvasc (Amlodipine Besylate) 5 Mg Tablet 1 Tab PO DAILY Atenolol 100 Mg Tablet 1 Tab PO DAILY Omeprazole 40 Mg Capsule.dr 1 Cap PO DAILY Quinapril Hcl 40 Mg Tablet 1 Tab PO DAILY 30 Days Gabapentin (Gabapentin) 300 Mg Capsule 300 Mg PO TID Fluoxetine Hcl 20 Mg Capsule 1 Cap PO DAILY Vitals/I & O Vital Sign - Last 24 Hours 06/15/20 06/15/20 06/15/20 06/15/20 17:51 18:17 18:49 19:47 Temp 98.5 98.5 Pulse 68 84 82 Resp 22 22 B/P (MAP) 139/99 (112) 143/84 (103) 159/99 (119) 144/100 (115) Pulse Ox 97 95 88 97 O2 Delivery Room Air Room Air Room Air Room Air 06/15/20 06/15/20 06/15/20 06/15/20 21:30 21:45 22:00 23:00 Temp 98.7 98.7 Pulse 78 86 82 Resp 20 23 25 B/P (MAP) 152/90 (110) 125/79 (94) 111/69 (83) Pulse Ox 97 97 95 O2 Delivery Room Air Room Air Room Air Room Air 06/16/20 06/16/20 06/16/20 06/16/20 00:00 00:00 01:00 02:00 Temp 98.6 98.6 Pulse 78 78 78 Resp 29 33 38 B/P (MAP) 104/67 (79) 117/66 (83) 130/79 (96) Pulse Ox 94 94 93 O2 Delivery Nasal Cannula Nasal Cannula Nasal Cannula Nasal Cannula O2 Flow Rate 2.0 2.0 2.0 2.0 06/16/20 06/16/20 06/16/20 06/16/20 03:00 04:00 04:00 05:00 Temp 98.4 98.4 Pulse 74 85 113 Resp 32 40 56 B/P (MAP) 103/65 (78) 134/76 (95) 115/70 (85) Pulse Ox 93 94 90 O2 Delivery Nasal Cannula Nasal Cannula Nasal Cannula Nasal Cannula O2 Flow Rate 2.0 3.0 3.0 2.0 7/06/16/20 06/16/20 06/16/20 06:00 07:00 08:15 10:07 Temp 98.0 98.0 Pulse 97 120 Resp 54 28 B/P (MAP) 116/75 (89) 83/54 (64) Pulse Ox 95 97 92 92 O2 Delivery Nasal Cannula Nasal Cannula BiPAP/CPAP BiPAP/CPAP O2 Flow Rate 2.0 3.0 Intake and Output 06/15/20 06/15/20 06/16/20 15:00 23:00 07:00 Intake Total 629 ml Output Total 900 ml 705 ml Balance -900 ml -76 ml Justicifation of Admission Dx: Justifications for Admission: Justification of Admission Dx: Yes PAXTON BOND MD Jun 16, 2020 10:49
--- NOTE | 2020-06-16 13:33 | PDOC ---
PULMONARY PROGRESS NOTES Vitals Vital Signs Date Time Temp Pulse Resp B/P (MAP) Pulse Ox O2 Delivery O2 Flow Rate FiO2 06/16/20 11:52 98 BiPAP/CPAP 06/16/20 07:00 98.0 120 28 83/54 (64) 3.0 98.0 Lungs: Clear Labs Laboratory Tests Test 06/15/20 18:06 06/16/20 04:16 06/16/20 08:00 White Blood Count 10.7 x10^3/uL (4.0-11.0) 6.9 x10^3/uL (4.0-11.0) Red Blood Count 4.03 x10^6/uL (4.30-5.70) 3.55 x10^6/uL (4.30-5.70) Hemoglobin 13.6 g/dL (13.0-17.5) 11.6 g/dL (13.0-17.5) Hematocrit 38.3 % (39.0-53.0) 34.1 % (39.0-53.0) Mean Corpuscular Volume 95 fL (79-100) 96 fL (79-100) Mean Corpuscular Hemoglobin 34 pg (25-35) 33 pg (25-35) Mean Corpuscular Hemoglobin Concent 36 g/dL (31-37) 34 g/dL (31-37) Red Cell Distribution Width 13.2 % (11.5-14.5) 13.0 % (11.5-14.5) Platelet Count 152 x10^3/uL (140-400) 104 x10^3/uL (140-400) Neutrophils (%) (Auto) 86 % (31-73) 80 % (31-73) Lymphocytes (%) (Auto) 5 % (24-48) 10 % (24-48) Monocytes (%) (Auto) 8 % (0-9) 9 % (0-9) Eosinophils (%) (Auto) 0 % (0-3) 1 % (0-3) Basophils (%) (Auto) 1 % (0-3) 0 % (0-3) Neutrophils # (Auto) 9.2 x10^3/uL (1.8-7.7) 5.6 x10^3/uL (1.8-7.7) Lymphocytes # (Auto) 0.5 x10^3/uL (1.0-4.8) 0.7 x10^3/uL (1.0-4.8) Monocytes # (Auto) 0.9 x10^3/uL (0.0-1.1) 0.6 x10^3/uL (0.0-1.1) Eosinophils # (Auto) 0.0 x10^3/uL (0.0-0.7) 0.0 x10^3/uL (0.0-0.7) Basophils # (Auto) 0.1 x10^3/uL (0.0-0.2) 0.0 x10^3/uL (0.0-0.2) Segmented Neutrophils % 86 % (35-66) Lymphocytes % 7 % (24-48) Monocytes % 7 % (0-10) Toxic Granulation Slight Platelet Estimate Adequate (ADEQUATE) Prothrombin Time 12.3 SEC (11.7-14.0) Prothromb Time International Ratio 1.0 (0.8-1.1) Activated Partial Thromboplast Time 25 SEC (24-38) Sodium Level 125 mmol/L (136-145) 131 mmol/L (136-145) Potassium Level 3.2 mmol/L (3.5-5.1) 2.5 mmol/L (3.5-5.1) Chloride Level 85 mmol/L (98-107) 93 mmol/L (98-107) Carbon Dioxide Level 27 mmol/L (21-32) 25 mmol/L (21-32) Anion Gap 13 (6-14) 13 (6-14) Blood Urea Nitrogen 11 mg/dL (8-26) 7 mg/dL (8-26) Creatinine 1.0 mg/dL (0.7-1.3) 0.7 mg/dL (0.7-1.3) Estimated GFR (Cockcroft-Gault) 77.3 116.7 Glucose Level 127 mg/dL (70-99) 79 mg/dL (70-99) Calcium Level 9.2 mg/dL (8.5-10.1) 7.8 mg/dL (8.5-10.1) Magnesium Level 1.7 mg/dL (1.8-2.4) Total Bilirubin 1.8 mg/dL (0.2-1.0) 1.2 mg/dL (0.2-1.0) Direct Bilirubin 0.5 mg/dL (0.0-0.2) Aspartate Amino Transf (AST/SGOT) 51 U/L (15-37) 39 U/L (15-37) Alanine Aminotransferase (ALT/SGPT) 44 U/L (16-63) 33 U/L (16-63) Alkaline Phosphatase 57 U/L (46-116) 47 U/L (46-116) Total Protein 8.2 g/dL (6.4-8.2) 6.8 g/dL (6.4-8.2) Albumin 4.2 g/dL (3.4-5.0) 3.4 g/dL (3.4-5.0) Ethyl Alcohol Level < 10 mg/dL (0-10) BUN/Creatinine Ratio 10 (6-20) Albumin/Globulin Ratio 1.0 (1.0-1.7) Vitamin B12 Level 552 pg/mL (247-911) O2 Saturation 87 % (92-99) Arterial Blood pH 7.43 (7.35-7.45) Arterial Blood pCO2 at Patient Temp 36 mmHg (35-46) Arterial Blood pO2 at Patient Temp 55 mmHg (75-108) Arterial Blood HCO3 24 mmol/L (21-28) Arterial Blood Base Excess 0 mmol/L (-3-3) FiO2 60 Laboratory Tests Test 06/15/20 18:06 06/16/20 04:16 06/16/20 08:00 White Blood Count 10.7 x10^3/uL (4.0-11.0) 6.9 x10^3/uL (4.0-11.0) Red Blood Count 4.03 x10^6/uL (4.30-5.70) 3.55 x10^6/uL (4.30-5.70) Hemoglobin 13.6 g/dL (13.0-17.5) 11.6 g/dL (13.0-17.5) Hematocrit 38.3 % (39.0-53.0) 34.1 % (39.0-53.0) Mean Corpuscular Volume 95 fL (79-100) 96 fL (79-100) Mean Corpuscular Hemoglobin 34 pg (25-35) 33 pg (25-35) Mean Corpuscular Hemoglobin Concent 36 g/dL (31-37) 34 g/dL (31-37) Red Cell Distribution Width 13.2 % (11.5-14.5) 13.0 % (11.5-14.5) Platelet Count 152 x10^3/uL (140-400) 104 x10^3/uL (140-400) Neutrophils (%) (Auto) 86 % (31-73) 80 % (31-73) Lymphocytes (%) (Auto) 5 % (24-48) 10 % (24-48) Monocytes (%) (Auto) 8 % (0-9) 9 % (0-9) Eosinophils (%) (Auto) 0 % (0-3) 1 % (0-3) Basophils (%) (Auto) 1 % (0-3) 0 % (0-3) Neutrophils # (Auto) 9.2 x10^3/uL (1.8-7.7) 5.6 x10^3/uL (1.8-7.7) Lymphocytes # (Auto) 0.5 x10^3/uL (1.0-4.8) 0.7 x10^3/uL (1.0-4.8) Monocytes # (Auto) 0.9 x10^3/uL (0.0-1.1) 0.6 x10^3/uL (0.0-1.1) Eosinophils # (Auto) 0.0 x10^3/uL (0.0-0.7) 0.0 x10^3/uL (0.0-0.7) Basophils # (Auto) 0.1 x10^3/uL (0.0-0.2) 0.0 x10^3/uL (0.0-0.2) Segmented Neutrophils % 86 % (35-66) Lymphocytes % 7 % (24-48) Monocytes % 7 % (0-10) Toxic Granulation Slight Platelet Estimate Adequate (ADEQUATE) Prothrombin Time 12.3 SEC (11.7-14.0) Prothromb Time International Ratio 1.0 (0.8-1.1) Activated Partial Thromboplast Time 25 SEC (24-38) Sodium Level 125 mmol/L (136-145) 131 mmol/L (136-145) Potassium Level 3.2 mmol/L (3.5-5.1) 2.5 mmol/L (3.5-5.1) Chloride Level 85 mmol/L (98-107) 93 mmol/L (98-107) Carbon Dioxide Level 27 mmol/L (21-32) 25 mmol/L (21-32) Anion Gap 13 (6-14) 13 (6-14) Blood Urea Nitrogen 11 mg/dL (8-26) 7 mg/dL (8-26) Creatinine 1.0 mg/dL (0.7-1.3) 0.7 mg/dL (0.7-1.3) Estimated GFR (Cockcroft-Gault) 77.3 116.7 Glucose Level 127 mg/dL (70-99) 79 mg/dL (70-99) Calcium Level 9.2 mg/dL (8.5-10.1) 7.8 mg/dL (8.5-10.1) Magnesium Level 1.7 mg/dL (1.8-2.4) Total Bilirubin 1.8 mg/dL (0.2-1.0) 1.2 mg/dL (0.2-1.0) Direct Bilirubin 0.5 mg/dL (0.0-0.2) Aspartate Amino Transf (AST/SGOT) 51 U/L (15-37) 39 U/L (15-37) Alanine Aminotransferase (ALT/SGPT) 44 U/L (16-63) 33 U/L (16-63) Alkaline Phosphatase 57 U/L (46-116) 47 U/L (46-116) Total Protein 8.2 g/dL (6.4-8.2) 6.8 g/dL (6.4-8.2) Albumin 4.2 g/dL (3.4-5.0) 3.4 g/dL (3.4-5.0) Ethyl Alcohol Level < 10 mg/dL (0-10) BUN/Creatinine Ratio 10 (6-20) Albumin/Globulin Ratio 1.0 (1.0-1.7) Vitamin B12 Level 552 pg/mL (247-911) O2 Saturation 87 % (92-99) Arterial Blood pH 7.43 (7.35-7.45) Arterial Blood pCO2 at Patient Temp 36 mmHg (35-46) Arterial Blood pO2 at Patient Temp 55 mmHg (75-108) Arterial Blood HCO3 24 mmol/L (21-28) Arterial Blood Base Excess 0 mmol/L (-3-3) FiO2 60 Medications Active Scripts Medications Dose Route/Sig Max Daily Dose Days Date Category Norvasc (Amlodipine Besylate) 5 Mg Tablet 1 Tab PO DAILY 06/16/20 Reported Atenolol 100 Mg Tablet 1 Tab PO DAILY 06/16/20 Reported Omeprazole 40 Mg Capsule.dr 1 Cap PO DAILY 06/16/20 Reported Quinapril Hcl 40 Mg Tablet 1 Tab PO DAILY 30 06/16/20 Reported Gabapentin (Gabapentin) 300 Mg Capsule 300 Mg PO TID 06/16/20 Reported Fluoxetine Hcl 20 Mg Capsule 1 Cap PO DAILY 06/16/20 Reported Ativan (Lorazepam) 1 Mg Tablet 2 Mg PO TID 7 03/24/20 Rx Impression . Full note dictated Respiratory failure secondary to alcohol withdrawal l, hyponatremia Check urine drug screen KRISTOPHER MEDINA MD Jun 16, 2020 13:33
--- NOTE | 2020-06-16 13:46 | CONS ---
DATE OF CONSULTATION: 06/16/2020 ATTENDING PHYSICIAN: Dr. Self. REASON FOR CONSULTATION: The patient seen in pulmonary consultation at the request of Dr. Self for acute hypoxemic respiratory failure requiring noninvasive ventilation with BiPAP. HISTORY OF PRESENT ILLNESS: The patient is a 55-year-old alcoholic that apparently has a history of hypertension, gastroesophageal reflux, heavy chronic alcohol abuse, was brought to the Emergency Room after being found unresponsive at home by the daughter. The history is obtained from reviewing the current documentation. According to his , the patient was arrested for driving under the influence the day prior to his admission. He was released from custodial. It is unknown how long he was jailed for. But obviously, the patient was abstinence from alcohol during that time. He was found down at home. There was no evidence of incontinence of stooling. According to his , apparently he drinks 30-50 beers per day. Multiple falls at home in the past. The patient was admitted. He is currently on BiPAP. He is undergoing IV infusion with saline and banana bag. I was asked to see him in consultation. He is also sedated with Precedex. No history is obtained from the patient himself. PAST MEDICAL HISTORY: Obtained by reviewing the current documentation. He has a history of asthma, gastroesophageal reflux, hypertension, and alcoholism. ALLERGIES: No known drug allergies. SOCIAL HISTORY: As indicated above. REVIEW OF SYSTEMS: Unobtainable secondary to the patient's condition. PHYSICAL EXAMINATION: GENERAL: He was in the intensive care unit. VITAL SIGNS: Since admission, he has been afebrile. HEENT: Eyes: The sclerae were nonicteric. NECK: Jugular venous distention could not be assessed secondary to body habitus. CHEST: Full expansion. LUNGS: Anteriorly were clear with no wheezes, rales or rhonchi. CARDIOVASCULAR: Regular rate and rhythm with S1, S2, no S3. ABDOMEN: Soft. EXTREMITIES: No pitting edema. NEUROLOGIC: The patient was sedated as indicated above. LABORATORY DATA: Arterial blood gas; pH of 7.43, PaCO2 of 36, pO2 of 55. Electrolytes were noted. Potassium was low. Sodium was low. Upon admission, his sodium was 125, it is 131 today. Total albumin is slightly elevated. AST is elevated. Blood gases indicated above. Toxicology for ethanol was less than 10. CT head was negative. IMPRESSION: 1. Acute hypoxemic respiratory failure, multifactorial, suspect underlying chronic obstructive pulmonary disease/asthma along with current metabolic encephalopathy. 2. Metabolic encephalopathy present upon admission. 3. Hyponatremia. 4. Alcoholism. 5. Possible withdrawal. 6. Hypertension. PLAN: 1. We will continue current support with BiPAP. 2. Obtain urine toxicology screen. 3. Replace potassium. 4. Continue IV banana bag. 5. Obtain baseline chest x-ray. KRISTOPHER MEDINA MD DR: CHUCHO/shavonne JOB#: [id number] / [id number]
--- NOTE | 2020-06-16 14:40 | NUR ---
SS following for discharge planning. SS reviewed pt chart and discussed with pt RN. Pt is self pay pt. Pt is from home with spouse and is currently on the BIPAP. Pt has ETOH. Per report pt drinks 30-50 beers per day and recently [facility]. PAT team notified. Pt not medically stable to be seen at this time. SS will continue to follow for discharge planning.
[2020-06-16] MEDS: DEXTROSE 5% IV SCH (20:13)
[2020-06-16] MEDS: THIAMINE IV SCH (20:13)
[2020-06-16] MEDS: ENOXAPARIN 40 MG/0.4 ML SYRINGE. SQ SCH (20:14)
[2020-06-17] VITALS (25 sets, daily range): BP systolic 90–179; BP diastolic 54–104
[2020-06-17] MEDS: DEXMEDETOMIDINE 400 MCG in IV NORMAL SALINE 100ML 96 ML IV PRN ×4 (01:52→20:58)
[2020-06-17] MEDS: IV RINGERS,LACTATED 1000ML 1,000 ML IV SCH ×3 (01:52→14:55)
[2020-06-17] MEDS ORDERED: hydrALAZINE 20 MG/ML VIAL. IVP PRN ×2 (03:15→06:00)
[2020-06-17 04:36] LABS: BASO % 0 % (0-3); EOS # 0.1 x10^3/uL (0.0-0.7); EOS % 1 % (0-3); HEMATOCRIT 33.6 % (39.0-53.0); HEMOGLOBIN 11.6 g/dL (13.0-17.5); LYMPH # 0.6 x10^3/uL (1.0-4.8); LYMPH % 6 % (24-48); MEAN CORPUSCULAR HEMOGLOBIN 33 pg (25-35); MEAN CORPUSCULAR HGB CONC 34 g/dL (31-37); MEAN CORPUSCULAR VOLUME 96 fL (79-100); MONO # 0.7 x10^3/uL (0.0-1.1); MONO % 8 % (0-9); NEUT # 8.4 x10^3/uL (1.8-7.7); NEUT % 86 % (31-73); PLATELET COUNT 89 x10^3/uL (140-400); RED BLOOD COUNT 3.49 x10^6/uL (4.30-5.70); RED CELL DISTRIBUTION WIDTH 12.9 % (11.5-14.5); WHITE BLOOD COUNT 9.7 x10^3/uL (4.0-11.0)
[2020-06-17 04:58] LABS: ALBUMIN 3.2 g/dL (3.4-5.0); CALCIUM 8.3 mg/dL (8.5-10.1); CREATININE 0.6 mg/dL (0.7-1.3); DIRECT BILIRUBIN 0.4 mg/dL (0.0-0.2); GFR 139.4; TOTAL PROTEIN 6.9 g/dL (6.4-8.2)
[2020-06-17 05:10] LABS: POTASSIUM 2.8 mmol/L (3.5-5.1)
[2020-06-17] MEDS: POTASSIUM CHLORIDE 10MEQ 100 ML IV SCH ×4 (05:24→09:24)
[2020-06-17] MEDS: THIAMINE IV SCH (08:15)
[2020-06-17] MEDS: DEXTROSE 5% IV SCH (08:15)
[2020-06-17] MEDS: AMINO AC 3%/ELECTROLYTE/GLYCER 1,000 ML IV SCH ×2 (08:16→20:48)
[2020-06-17] MEDS: MULTIVIT INFUSN,ADULT 4,VIT K 10 ML, THIAMINE INJ 100 MG, FOLIC ACID INJ 1 MG in IV NOR... IV SCH (08:17)
[2020-06-17 08:23] LABS: BASE EXCESS ABG 1 mmol/L (-3-3); HCO3 ABG 26 mmol/L (21-28); PCO2 ABG 41 mmHg (35-46); PO2 ABG 94 mmHg (75-108); SAT O2 ABG 97 % (92-99)
[2020-06-17 08:35] LABS: FIO2 ABG 40% BIPAP
--- NOTE | 2020-06-17 09:04 | PDOC ---
PULMONARY PROGRESS NOTES Subjective Patient going through delirium awake alert Vitals Vital Signs Date Time Temp Pulse Resp B/P (MAP) Pulse Ox O2 Delivery O2 Flow Rate FiO2 06/17/20 07:50 100 BiPAP/CPAP 06/17/20 06:00 70 22 133/84 (100) 06/17/20 04:00 98.5 98.5 06/16/20 08:00 6.0 Lungs: Clear Cardiovascular: S1, S2 Abdomen: Soft Neuro Exam: Alert Extremities: No Edema Skin: Warm Labs Laboratory Tests Test 06/15/20 18:06 06/15/20 23:15 06/16/20 04:16 06/16/20 08:00 White Blood Count 10.7 x10^3/uL (4.0-11.0) 6.9 x10^3/uL (4.0-11.0) Red Blood Count 4.03 x10^6/uL (4.30-5.70) 3.55 x10^6/uL (4.30-5.70) Hemoglobin 13.6 g/dL (13.0-17.5) 11.6 g/dL (13.0-17.5) Hematocrit 38.3 % (39.0-53.0) 34.1 % (39.0-53.0) Mean Corpuscular Volume 95 fL (79-100) 96 fL (79-100) Mean Corpuscular Hemoglobin 34 pg (25-35) 33 pg (25-35) Mean Corpuscular Hemoglobin Concent 36 g/dL (31-37) 34 g/dL (31-37) Red Cell Distribution Width 13.2 % (11.5-14.5) 13.0 % (11.5-14.5) Platelet Count 152 x10^3/uL (140-400) 104 x10^3/uL (140-400) Neutrophils (%) (Auto) 86 % (31-73) 80 % (31-73) Lymphocytes (%) (Auto) 5 % (24-48) 10 % (24-48) Monocytes (%) (Auto) 8 % (0-9) 9 % (0-9) Eosinophils (%) (Auto) 0 % (0-3) 1 % (0-3) Basophils (%) (Auto) 1 % (0-3) 0 % (0-3) Neutrophils # (Auto) 9.2 x10^3/uL (1.8-7.7) 5.6 x10^3/uL (1.8-7.7) Lymphocytes # (Auto) 0.5 x10^3/uL (1.0-4.8) 0.7 x10^3/uL (1.0-4.8) Monocytes # (Auto) 0.9 x10^3/uL (0.0-1.1) 0.6 x10^3/uL (0.0-1.1) Eosinophils # (Auto) 0.0 x10^3/uL (0.0-0.7) 0.0 x10^3/uL (0.0-0.7) Basophils # (Auto) 0.1 x10^3/uL (0.0-0.2) 0.0 x10^3/uL (0.0-0.2) Segmented Neutrophils % 86 % (35-66) Lymphocytes % 7 % (24-48) Monocytes % 7 % (0-10) Toxic Granulation Slight Platelet Estimate Adequate (ADEQUATE) Prothrombin Time 12.3 SEC (11.7-14.0) Prothromb Time International Ratio 1.0 (0.8-1.1) Activated Partial Thromboplast Time 25 SEC (24-38) Sodium Level 125 mmol/L (136-145) 131 mmol/L (136-145) Potassium Level 3.2 mmol/L (3.5-5.1) 2.5 mmol/L (3.5-5.1) Chloride Level 85 mmol/L (98-107) 93 mmol/L (98-107) Carbon Dioxide Level 27 mmol/L (21-32) 25 mmol/L (21-32) Anion Gap 13 (6-14) 13 (6-14) Blood Urea Nitrogen 11 mg/dL (8-26) 7 mg/dL (8-26) Creatinine 1.0 mg/dL (0.7-1.3) 0.7 mg/dL (0.7-1.3) Estimated GFR (Cockcroft-Gault) 77.3 116.7 Glucose Level 127 mg/dL (70-99) 79 mg/dL (70-99) Calcium Level 9.2 mg/dL (8.5-10.1) 7.8 mg/dL (8.5-10.1) Magnesium Level 1.7 mg/dL (1.8-2.4) Total Bilirubin 1.8 mg/dL (0.2-1.0) 1.2 mg/dL (0.2-1.0) Direct Bilirubin 0.5 mg/dL (0.0-0.2) Aspartate Amino Transf (AST/SGOT) 51 U/L (15-37) 39 U/L (15-37) Alanine Aminotransferase (ALT/SGPT) 44 U/L (16-63) 33 U/L (16-63) Alkaline Phosphatase 57 U/L (46-116) 47 U/L (46-116) Total Protein 8.2 g/dL (6.4-8.2) 6.8 g/dL (6.4-8.2) Albumin 4.2 g/dL (3.4-5.0) 3.4 g/dL (3.4-5.0) Ethyl Alcohol Level < 10 mg/dL (0-10) Coronavirus (PCR) Not detected (Not Detected) BUN/Creatinine Ratio 10 (6-20) Albumin/Globulin Ratio 1.0 (1.0-1.7) Vitamin B12 Level 552 pg/mL (247-911) O2 Saturation 87 % (92-99) Arterial Blood pH 7.43 (7.35-7.45) Arterial Blood pCO2 at Patient Temp 36 mmHg (35-46) Arterial Blood pO2 at Patient Temp 55 mmHg (75-108) Arterial Blood HCO3 24 mmol/L (21-28) Arterial Blood Base Excess 0 mmol/L (-3-3) FiO2 60 Test 06/17/20 04:00 06/17/20 08:00 White Blood Count 9.7 x10^3/uL (4.0-11.0) Red Blood Count 3.49 x10^6/uL (4.30-5.70) Hemoglobin 11.6 g/dL (13.0-17.5) Hematocrit 33.6 % (39.0-53.0) Mean Corpuscular Volume 96 fL (79-100) Mean Corpuscular Hemoglobin 33 pg (25-35) Mean Corpuscular Hemoglobin Concent 34 g/dL (31-37) Red Cell Distribution Width 12.9 % (11.5-14.5) Platelet Count 89 x10^3/uL (140-400) Neutrophils (%) (Auto) 86 % (31-73) Lymphocytes (%) (Auto) 6 % (24-48) Monocytes (%) (Auto) 8 % (0-9) Eosinophils (%) (Auto) 1 % (0-3) Basophils (%) (Auto) 0 % (0-3) Neutrophils # (Auto) 8.4 x10^3/uL (1.8-7.7) Lymphocytes # (Auto) 0.6 x10^3/uL (1.0-4.8) Monocytes # (Auto) 0.7 x10^3/uL (0.0-1.1) Eosinophils # (Auto) 0.1 x10^3/uL (0.0-0.7) Basophils # (Auto) 0.0 x10^3/uL (0.0-0.2) Sodium Level 133 mmol/L (136-145) Potassium Level 2.8 mmol/L (3.5-5.1) Chloride Level 95 mmol/L (98-107) Carbon Dioxide Level 25 mmol/L (21-32) Anion Gap 13 (6-14) Blood Urea Nitrogen 7 mg/dL (8-26) Creatinine 0.6 mg/dL (0.7-1.3) Estimated GFR (Cockcroft-Gault) 139.4 Glucose Level 82 mg/dL (70-99) Calcium Level 8.3 mg/dL (8.5-10.1) Total Bilirubin 1.0 mg/dL (0.2-1.0) Direct Bilirubin 0.4 mg/dL (0.0-0.2) Aspartate Amino Transf (AST/SGOT) 29 U/L (15-37) Alanine Aminotransferase (ALT/SGPT) 25 U/L (16-63) Alkaline Phosphatase 43 U/L (46-116) Total Protein 6.9 g/dL (6.4-8.2) Albumin 3.2 g/dL (3.4-5.0) O2 Saturation 97 % (92-99) Arterial Blood pH 7.41 (7.35-7.45) Arterial Blood pCO2 at Patient Temp 41 mmHg (35-46) Arterial Blood pO2 at Patient Temp 94 mmHg (75-108) Arterial Blood HCO3 26 mmol/L (21-28) Arterial Blood Base Excess 1 mmol/L (-3-3) FiO2 40% bipap Laboratory Tests Test 06/17/20 04:00 06/17/20 08:00 White Blood Count 9.7 x10^3/uL (4.0-11.0) Red Blood Count 3.49 x10^6/uL (4.30-5.70) Hemoglobin 11.6 g/dL (13.0-17.5) Hematocrit 33.6 % (39.0-53.0) Mean Corpuscular Volume 96 fL (79-100) Mean Corpuscular Hemoglobin 33 pg (25-35) Mean Corpuscular Hemoglobin Concent 34 g/dL (31-37) Red Cell Distribution Width 12.9 % (11.5-14.5) Platelet Count 89 x10^3/uL (140-400) Neutrophils (%) (Auto) 86 % (31-73) Lymphocytes (%) (Auto) 6 % (24-48) Monocytes (%) (Auto) 8 % (0-9) Eosinophils (%) (Auto) 1 % (0-3) Basophils (%) (Auto) 0 % (0-3) Neutrophils # (Auto) 8.4 x10^3/uL (1.8-7.7) Lymphocytes # (Auto) 0.6 x10^3/uL (1.0-4.8) Monocytes # (Auto) 0.7 x10^3/uL (0.0-1.1) Eosinophils # (Auto) 0.1 x10^3/uL (0.0-0.7) Basophils # (Auto) 0.0 x10^3/uL (0.0-0.2) Sodium Level 133 mmol/L (136-145) Potassium Level 2.8 mmol/L (3.5-5.1) Chloride Level 95 mmol/L (98-107) Carbon Dioxide Level 25 mmol/L (21-32) Anion Gap 13 (6-14) Blood Urea Nitrogen 7 mg/dL (8-26) Creatinine 0.6 mg/dL (0.7-1.3) Estimated GFR (Cockcroft-Gault) 139.4 Glucose Level 82 mg/dL (70-99) Calcium Level 8.3 mg/dL (8.5-10.1) Total Bilirubin 1.0 mg/dL (0.2-1.0) Direct Bilirubin 0.4 mg/dL (0.0-0.2) Aspartate Amino Transf (AST/SGOT) 29 U/L (15-37) Alanine Aminotransferase (ALT/SGPT) 25 U/L (16-63) Alkaline Phosphatase 43 U/L (46-116) Total Protein 6.9 g/dL (6.4-8.2) Albumin 3.2 g/dL (3.4-5.0) O2 Saturation 97 % (92-99) Arterial Blood pH 7.41 (7.35-7.45) Arterial Blood pCO2 at Patient Temp 41 mmHg (35-46) Arterial Blood pO2 at Patient Temp 94 mmHg (75-108) Arterial Blood HCO3 26 mmol/L (21-28) Arterial Blood Base Excess 1 mmol/L (-3-3) FiO2 40% bipap Medications Active Scripts Medications Dose Route/Sig Max Daily Dose Days Date Category Norvasc (Amlodipine Besylate) 5 Mg Tablet 1 Tab PO DAILY 06/16/20 Reported Atenolol 100 Mg Tablet 1 Tab PO DAILY 06/16/20 Reported Omeprazole 40 Mg Capsule.dr 1 Cap PO DAILY 06/16/20 Reported Quinapril Hcl 40 Mg Tablet 1 Tab PO DAILY 30 06/16/20 Reported Gabapentin (Gabapentin) 300 Mg Capsule 300 Mg PO TID 06/16/20 Reported Fluoxetine Hcl 20 Mg Capsule 1 Cap PO DAILY 06/16/20 Reported Ativan (Lorazepam) 1 Mg Tablet 2 Mg PO TID 7 03/24/20 Rx Impression . IMPRESSION: 1. Acute hypoxemic respiratory failure, multifactorial, suspect underlying chronic obstructive pulmonary disease/asthma along with current metabolic encephalopathy. 2. Metabolic encephalopathy present upon admission. 3. Hyponatremia. 4. Alcoholism. 5. Possible withdrawal. 6. Hypertension. 7. SARS-CoV-2 negative Plan . Continue nasal cannula oxygen off of BiPAP IV banana bag Potassium noted SARS-CoV-2 negative KRISTOPHER MEDINA MD Jun 17, 2020 09:04
[2020-06-17] MEDS: NICOTINE 21MG PATCH. TD SCH (09:27)
--- NOTE | 2020-06-17 10:44 | PDOC ---
PROGRESS NOTES Chief Complaint Chief Complaint ASSESSMENT Acute Hypoxic Resp Failure Acute Encephalopathy Severe EtOH Withdrawal with hx of EtOH seizure Hypokalemia Recent Incarceration COVID-19 rule out Thrombocytopenia ASSESSMENT monitor in ICU continue BIPAP support, wean as tolerated continue precidex drip/ativan. wean ativan as tolerated. currently on scheduled ativan etoh withdrawal protocol replace K+ pulm consulted family updated on plan of care DVT PPX FULL CODE covid screen negative labs in AM History of Present Illness History of Present Illness in resp distress this AM breathing 30x/min. ABG ordered and looks okay. trial of BIPAP this AM. family updated at bedside on plan of care. Vitals Vitals Vital Signs Date Time Temp Pulse Resp B/P (MAP) Pulse Ox O2 Delivery O2 Flow Rate FiO2 06/17/20 10:00 61 28 156/92 (113) 100 BiPAP/CPAP 06/17/20 07:00 98.0 98.0 06/16/20 08:00 6.0 Physical Exam General: moderate distress, Other Heart: Regular rate Lungs: Clear Abdomen: Normal bowel sounds, Soft Extremities: No clubbing, No cyanosis Skin: No rashes Labs LABS Laboratory Tests Test 06/17/20 04:00 06/17/20 08:00 White Blood Count 9.7 x10^3/uL (4.0-11.0) Red Blood Count 3.49 x10^6/uL (4.30-5.70) Hemoglobin 11.6 g/dL (13.0-17.5) Hematocrit 33.6 % (39.0-53.0) Mean Corpuscular Volume 96 fL (79-100) Mean Corpuscular Hemoglobin 33 pg (25-35) Mean Corpuscular Hemoglobin Concent 34 g/dL (31-37) Red Cell Distribution Width 12.9 % (11.5-14.5) Platelet Count 89 x10^3/uL (140-400) Neutrophils (%) (Auto) 86 % (31-73) Lymphocytes (%) (Auto) 6 % (24-48) Monocytes (%) (Auto) 8 % (0-9) Eosinophils (%) (Auto) 1 % (0-3) Basophils (%) (Auto) 0 % (0-3) Neutrophils # (Auto) 8.4 x10^3/uL (1.8-7.7) Lymphocytes # (Auto) 0.6 x10^3/uL (1.0-4.8) Monocytes # (Auto) 0.7 x10^3/uL (0.0-1.1) Eosinophils # (Auto) 0.1 x10^3/uL (0.0-0.7) Basophils # (Auto) 0.0 x10^3/uL (0.0-0.2) Sodium Level 133 mmol/L (136-145) Potassium Level 2.8 mmol/L (3.5-5.1) Chloride Level 95 mmol/L (98-107) Carbon Dioxide Level 25 mmol/L (21-32) Anion Gap 13 (6-14) Blood Urea Nitrogen 7 mg/dL (8-26) Creatinine 0.6 mg/dL (0.7-1.3) Estimated GFR (Cockcroft-Gault) 139.4 Glucose Level 82 mg/dL (70-99) Calcium Level 8.3 mg/dL (8.5-10.1) Total Bilirubin 1.0 mg/dL (0.2-1.0) Direct Bilirubin 0.4 mg/dL (0.0-0.2) Aspartate Amino Transf (AST/SGOT) 29 U/L (15-37) Alanine Aminotransferase (ALT/SGPT) 25 U/L (16-63) Alkaline Phosphatase 43 U/L (46-116) Total Protein 6.9 g/dL (6.4-8.2) Albumin 3.2 g/dL (3.4-5.0) O2 Saturation 97 % (92-99) Arterial Blood pH 7.41 (7.35-7.45) Arterial Blood pCO2 at Patient Temp 41 mmHg (35-46) Arterial Blood pO2 at Patient Temp 94 mmHg (75-108) Arterial Blood HCO3 26 mmol/L (21-28) Arterial Blood Base Excess 1 mmol/L (-3-3) FiO2 40% bipap Assessment and Plan Assessmemt and Plan Problems Medical Problems: (1) Alcohol withdrawal delirium Status: Acute (2) Delirium tremens Status: Acute Comment Review of Relevant I have reviewed the following items jeannie (where applicable) has been applied. Labs Laboratory Tests Test 06/15/20 18:06 06/15/20 23:15 06/16/20 04:16 06/16/20 08:00 White Blood Count 10.7 x10^3/uL (4.0-11.0) 6.9 x10^3/uL (4.0-11.0) Red Blood Count 4.03 x10^6/uL (4.30-5.70) 3.55 x10^6/uL (4.30-5.70) Hemoglobin 13.6 g/dL (13.0-17.5) 11.6 g/dL (13.0-17.5) Hematocrit 38.3 % (39.0-53.0) 34.1 % (39.0-53.0) Mean Corpuscular Volume 95 fL (79-100) 96 fL (79-100) Mean Corpuscular Hemoglobin 34 pg (25-35) 33 pg (25-35) Mean Corpuscular Hemoglobin Concent 36 g/dL (31-37) 34 g/dL (31-37) Red Cell Distribution Width 13.2 % (11.5-14.5) 13.0 % (11.5-14.5) Platelet Count 152 x10^3/uL (140-400) 104 x10^3/uL (140-400) Neutrophils (%) (Auto) 86 % (31-73) 80 % (31-73) Lymphocytes (%) (Auto) 5 % (24-48) 10 % (24-48) Monocytes (%) (Auto) 8 % (0-9) 9 % (0-9) Eosinophils (%) (Auto) 0 % (0-3) 1 % (0-3) Basophils (%) (Auto) 1 % (0-3) 0 % (0-3) Neutrophils # (Auto) 9.2 x10^3/uL (1.8-7.7) 5.6 x10^3/uL (1.8-7.7) Lymphocytes # (Auto) 0.5 x10^3/uL (1.0-4.8) 0.7 x10^3/uL (1.0-4.8) Monocytes # (Auto) 0.9 x10^3/uL (0.0-1.1) 0.6 x10^3/uL (0.0-1.1) Eosinophils # (Auto) 0.0 x10^3/uL (0.0-0.7) 0.0 x10^3/uL (0.0-0.7) Basophils # (Auto) 0.1 x10^3/uL (0.0-0.2) 0.0 x10^3/uL (0.0-0.2) Segmented Neutrophils % 86 % (35-66) Lymphocytes % 7 % (24-48) Monocytes % 7 % (0-10) Toxic Granulation Slight Platelet Estimate Adequate (ADEQUATE) Prothrombin Time 12.3 SEC (11.7-14.0) Prothromb Time International Ratio 1.0 (0.8-1.1) Activated Partial Thromboplast Time 25 SEC (24-38) Sodium Level 125 mmol/L (136-145) 131 mmol/L (136-145) Potassium Level 3.2 mmol/L (3.5-5.1) 2.5 mmol/L (3.5-5.1) Chloride Level 85 mmol/L (98-107) 93 mmol/L (98-107) Carbon Dioxide Level 27 mmol/L (21-32) 25 mmol/L (21-32) Anion Gap 13 (6-14) 13 (6-14) Blood Urea Nitrogen 11 mg/dL (8-26) 7 mg/dL (8-26) Creatinine 1.0 mg/dL (0.7-1.3) 0.7 mg/dL (0.7-1.3) Estimated GFR (Cockcroft-Gault) 77.3 116.7 Glucose Level 127 mg/dL (70-99) 79 mg/dL (70-99) Calcium Level 9.2 mg/dL (8.5-10.1) 7.8 mg/dL (8.5-10.1) Magnesium Level 1.7 mg/dL (1.8-2.4) Total Bilirubin 1.8 mg/dL (0.2-1.0) 1.2 mg/dL (0.2-1.0) Direct Bilirubin 0.5 mg/dL (0.0-0.2) Aspartate Amino Transf (AST/SGOT) 51 U/L (15-37) 39 U/L (15-37) Alanine Aminotransferase (ALT/SGPT) 44 U/L (16-63) 33 U/L (16-63) Alkaline Phosphatase 57 U/L (46-116) 47 U/L (46-116) Total Protein 8.2 g/dL (6.4-8.2) 6.8 g/dL (6.4-8.2) Albumin 4.2 g/dL (3.4-5.0) 3.4 g/dL (3.4-5.0) Ethyl Alcohol Level < 10 mg/dL (0-10) Coronavirus (PCR) Not detected (Not Detected) BUN/Creatinine Ratio 10 (6-20) Albumin/Globulin Ratio 1.0 (1.0-1.7) Vitamin B12 Level 552 pg/mL (247-911) O2 Saturation 87 % (92-99) Arterial Blood pH 7.43 (7.35-7.45) Arterial Blood pCO2 at Patient Temp 36 mmHg (35-46) Arterial Blood pO2 at Patient Temp 55 mmHg (75-108) Arterial Blood HCO3 24 mmol/L (21-28) Arterial Blood Base Excess 0 mmol/L (-3-3) FiO2 60 Test 06/17/20 04:00 06/17/20 08:00 White Blood Count 9.7 x10^3/uL (4.0-11.0) Red Blood Count 3.49 x10^6/uL (4.30-5.70) Hemoglobin 11.6 g/dL (13.0-17.5) Hematocrit 33.6 % (39.0-53.0) Mean Corpuscular Volume 96 fL (79-100) Mean Corpuscular Hemoglobin 33 pg (25-35) Mean Corpuscular Hemoglobin Concent 34 g/dL (31-37) Red Cell Distribution Width 12.9 % (11.5-14.5) Platelet Count 89 x10^3/uL (140-400) Neutrophils (%) (Auto) 86 % (31-73) Lymphocytes (%) (Auto) 6 % (24-48) Monocytes (%) (Auto) 8 % (0-9) Eosinophils (%) (Auto) 1 % (0-3) Basophils (%) (Auto) 0 % (0-3) Neutrophils # (Auto) 8.4 x10^3/uL (1.8-7.7) Lymphocytes # (Auto) 0.6 x10^3/uL (1.0-4.8) Monocytes # (Auto) 0.7 x10^3/uL (0.0-1.1) Eosinophils # (Auto) 0.1 x10^3/uL (0.0-0.7) Basophils # (Auto) 0.0 x10^3/uL (0.0-0.2) Sodium Level 133 mmol/L (136-145) Potassium Level 2.8 mmol/L (3.5-5.1) Chloride Level 95 mmol/L (98-107) Carbon Dioxide Level 25 mmol/L (21-32) Anion Gap 13 (6-14) Blood Urea Nitrogen 7 mg/dL (8-26) Creatinine 0.6 mg/dL (0.7-1.3) Estimated GFR (Cockcroft-Gault) 139.4 Glucose Level 82 mg/dL (70-99) Calcium Level 8.3 mg/dL (8.5-10.1) Total Bilirubin 1.0 mg/dL (0.2-1.0) Direct Bilirubin 0.4 mg/dL (0.0-0.2) Aspartate Amino Transf (AST/SGOT) 29 U/L (15-37) Alanine Aminotransferase (ALT/SGPT) 25 U/L (16-63) Alkaline Phosphatase 43 U/L (46-116) Total Protein 6.9 g/dL (6.4-8.2) Albumin 3.2 g/dL (3.4-5.0) O2 Saturation 97 % (92-99) Arterial Blood pH 7.41 (7.35-7.45) Arterial Blood pCO2 at Patient Temp 41 mmHg (35-46) Arterial Blood pO2 at Patient Temp 94 mmHg (75-108) Arterial Blood HCO3 26 mmol/L (21-28) Arterial Blood Base Excess 1 mmol/L (-3-3) FiO2 40% bipap Laboratory Tests Test 06/17/20 04:00 06/17/20 08:00 White Blood Count 9.7 x10^3/uL (4.0-11.0) Red Blood Count 3.49 x10^6/uL (4.30-5.70) Hemoglobin 11.6 g/dL (13.0-17.5) Hematocrit 33.6 % (39.0-53.0) Mean Corpuscular Volume 96 fL (79-100) Mean Corpuscular Hemoglobin 33 pg (25-35) Mean Corpuscular Hemoglobin Concent 34 g/dL (31-37) Red Cell Distribution Width 12.9 % (11.5-14.5) Platelet Count 89 x10^3/uL (140-400) Neutrophils (%) (Auto) 86 % (31-73) Lymphocytes (%) (Auto) 6 % (24-48) Monocytes (%) (Auto) 8 % (0-9) Eosinophils (%) (Auto) 1 % (0-3) Basophils (%) (Auto) 0 % (0-3) Neutrophils # (Auto) 8.4 x10^3/uL (1.8-7.7) Lymphocytes # (Auto) 0.6 x10^3/uL (1.0-4.8) Monocytes # (Auto) 0.7 x10^3/uL (0.0-1.1) Eosinophils # (Auto) 0.1 x10^3/uL (0.0-0.7) Basophils # (Auto) 0.0 x10^3/uL (0.0-0.2) Sodium Level 133 mmol/L (136-145) Potassium Level 2.8 mmol/L (3.5-5.1) Chloride Level 95 mmol/L (98-107) Carbon Dioxide Level 25 mmol/L (21-32) Anion Gap 13 (6-14) Blood Urea Nitrogen 7 mg/dL (8-26) Creatinine 0.6 mg/dL (0.7-1.3) Estimated GFR (Cockcroft-Gault) 139.4 Glucose Level 82 mg/dL (70-99) Calcium Level 8.3 mg/dL (8.5-10.1) Total Bilirubin 1.0 mg/dL (0.2-1.0) Direct Bilirubin 0.4 mg/dL (0.0-0.2) Aspartate Amino Transf (AST/SGOT) 29 U/L (15-37) Alanine Aminotransferase (ALT/SGPT) 25 U/L (16-63) Alkaline Phosphatase 43 U/L (46-116) Total Protein 6.9 g/dL (6.4-8.2) Albumin 3.2 g/dL (3.4-5.0) O2 Saturation 97 % (92-99) Arterial Blood pH 7.41 (7.35-7.45) Arterial Blood pCO2 at Patient Temp 41 mmHg (35-46) Arterial Blood pO2 at Patient Temp 94 mmHg (75-108) Arterial Blood HCO3 26 mmol/L (21-28) Arterial Blood Base Excess 1 mmol/L (-3-3) FiO2 40% bipap Medications Current Medications Sodium Chloride 1,000 ml @ 1,000 mls/hr Q1H IV Last administered on 06/15/20at 18:08; Start 06/15/20 at 17:43; Stop 06/15/20 at 18:42; Status DC Multivitamins 10 ml/Thiamine HCl 100 mg/Folic Acid 1 mg/Sodium Chloride 1,011.2 ml @ 1,000 mls/ hr 1X ONCE IV Last administered on 06/15/20at 18:16; Start 06/15/20 at 17:45; Stop 06/15/20 at 18:45; Status DC Lorazepam (Ativan Inj) 2 mg 1X ONCE IVP Last administered on 06/15/20at 18:07; Start 06/15/20 at 17:45; Stop 06/15/20 at 17:48; Status DC Lorazepam (Ativan Inj) 2 mg 1X ONCE IVP Last administered on 06/15/20at 18:49; Start 06/15/20 at 19:00; Stop 06/15/20 at 19:01; Status DC Multivitamins 10 ml/Thiamine HCl 100 mg/Folic Acid 1 mg/Sodium Chloride 1,011.2 ml @ 100 mls/ hr DAILY IV Last administered on 06/17/20at 08:17; Start 06/16/20 at 09:00; Stop 06/19/20 at 19:07 Multivitamins (Thera M Plus) 1 tab DAILY PO ; Start 06/20/20 at 09:00 Folic Acid (Folic Acid) 1 mg DAILY PO ; Start 06/20/20 at 09:00 Thiamine HCl 300 mg/Dextrose 53 ml @ 100 mls/hr DAILY IV ; Start 06/20/20 at 09:00; Stop 06/16/20 at 11:01; Status DC Lorazepam (Ativan) 4 mg PRN Q1HR PRN PO For CIWA 8-14; Start 06/15/20 at 19:45 Lorazepam (Ativan) 8 mg PRN Q1HR PRN PO For CIWA 15 or greater; Start 06/15/20 at 19:45 Haloperidol Lactate (Haldol Inj) 5 mg PRN Q4HRS PRN IVP Hallucinatns,Confusn,Delirium Last administered on 06/16/20 04:01; Start 06/15/20 at 19:45 Diphenhydramine HCl (Benadryl) 25 mg PRN Q15MIN PRN IVP EPS symptoms 2'Haldol admin Last administered on 06/16/20 04:01; Start 06/15/20 at 19:45 Clonidine HCl (Catapres) 0.1 mg PRN Q1HR PRN PO SBP > 180 or DBP > 100, MRX3; Start 06/15/20 at 19:45 Lorazepam (Ativan Inj) 2 mg PRN Q15MIN PRN IV SEE COMMENTS Last administered on 06/16/20at 05:42; Start 06/15/20 at 19:45 Enoxaparin Sodium (Lovenox 40mg Syringe) 40 mg Q24H SQ Last administered on 06/16/20at 20:14; Start 06/15/20 at 20:00 Heparin Sodium (Porcine) (Heparin Sodium) 5,000 unit Q12HR SQ ; Start 06/15/20 at 21:00; Status UNV Multivitamins 10 ml/Thiamine HCl 100 mg/Folic Acid 1 mg/Sodium Chloride 1,011.2 ml @ 100 mls/ hr 1X ONCE IV ; Start 06/15/20 at 22:15; Stop 06/16/20 at 08:21; Status UNV Ringer's Solution 1,000 ml @ 100 mls/hr Q10H IV Last administered on 06/17/20at 03:30; Start 06/15/20 at 22:30 Lorazepam (Ativan Inj) 4 mg PRN Q1HR PRN IV For CIWA 15 or greater Last administered on 06/16/20at 10:37; Start 06/15/20 at 22:15 Nicotine (Nicoderm Cq 21mg) 1 patch DAILY TD Last administered on 06/17/20 09:27; Start 06/15/20 at 23:00 Dexmedetomidine HCl 400 mcg/ Sodium Chloride 100 ml @ 0 mls/hr CONT PRN IV AGITATION/ANXIETY Last administered on 06/17/20at 08:15; Start 06/16/20 at 05:45 Sodium Chloride 500 ml @ 500 mls/hr 1X PRN PRN IV LOW BP; Start 06/16/20 at 05:45 Atropine Sulfate (ATROPINE 0.5mg SYRINGE) 0.5 mg PRN Q5MIN PRN IV SEE COMMENTS; Start 06/16/20 at 05:45 Potassium Chloride/Water 100 ml @ 100 mls/hr Q1H IV Last administered on 06/16/20at 14:37; Start 06/16/20 at 06:00; Stop 06/16/20 at 17:59; Status DC Thiamine HCl 300 mg/Dextrose 53 ml @ 100 mls/hr DAILY IV ; Start 06/16/20 at 09:00; Stop 06/16/20 at 17:51; Status DC Thiamine HCl 250 mg/Dextrose 52.5 ml @ 102 mls/hr BID IV Last administered on 06/17/20at 08:15; Start 06/16/20 at 21:00 Lorazepam (Ativan Inj) 4 mg Q4HRS IVP Last administered on 06/17/20at 08:13; Start 06/16/20 at 20:00 Hydralazine HCl (Apresoline Inj) 20 mg PRN Q4HRS PRN IVP ELEVATED BP, SEE COMMENTS Last administered on 06/17/20at 03:22; Start 06/17/20 at 03:15 Potassium Chloride/Water 100 ml @ 100 mls/hr Q1H IV Last administered on 06/17/20at 09:24; Start 06/17/20 at 06:00; Stop 06/17/20 at 09:59; Status DC Hydralazine HCl (Apresoline Inj) 10 mg PRN Q4HRS PRN IVP ELEVATED BP, SEE COMMENTS; Start 06/17/20 at 06:00 Amino Acids/ Glycerin/ Electrolytes 1,000 ml @ 80 mls/hr [id number] IV Last administered on 06/17/20at 08:16; Start 06/17/20 at 08:00 Active Scripts Active Ativan (Lorazepam) 1 Mg Tablet 2 Mg PO TID 7 Days Reported Norvasc (Amlodipine Besylate) 5 Mg Tablet 1 Tab PO DAILY Atenolol 100 Mg Tablet 1 Tab PO DAILY Omeprazole 40 Mg Capsule.dr 1 Cap PO DAILY Quinapril Hcl 40 Mg Tablet 1 Tab PO DAILY 30 Days Gabapentin (Gabapentin) 300 Mg Capsule 300 Mg PO TID Fluoxetine Hcl 20 Mg Capsule 1 Cap PO DAILY Vitals/I & O Vital Sign - Last 24 Hours 06/16/20 06/16/20 06/16/20 06/16/20 11:00 11:52 12:00 12:00 Pulse 74 74 Resp 25 30 B/P (MAP) 116/93 (101) 144/85 (104) Pulse Ox 98 98 98 O2 Delivery BiPAP/CPAP BiPAP/CPAP BiPAP/CPAP Bi-pap 06/16/20 06/16/20 06/16/20 06/16/20 13:00 14:00 15:00 15:18 Pulse 74 74 74 Resp 32 29 30 B/P (MAP) 135/84 (101) 147/89 (108) 152/94 (113) Pulse Ox 97 99 97 98 O2 Delivery BiPAP/CPAP BiPAP/CPAP BiPAP/CPAP BiPAP/CPAP 06/16/20 06/16/20 06/16/20 06/16/20 16:00 16:00 17:00 18:00 Temp 99.9 99.9 Pulse 74 74 66 Resp 46 33 32 B/P (MAP) 155/92 (113) 144/88 (106) 164/98 (120) Pulse Ox 98 99 98 O2 Delivery Bi-pap BiPAP/CPAP BiPAP/CPAP BiPAP/CPAP 06/16/20 06/16/20 06/16/20 06/16/20 18:16 19:00 19:42 20:00 Temp 100.0 100.0 Pulse 70 80 Resp 34 28 B/P (MAP) 169/93 (118) 143/87 (105) Pulse Ox 99 98 97 96 O2 Delivery BiPAP/CPAP BiPAP/CPAP BiPAP/CPAP BiPAP/CPAP 06/16/20 06/16/20 06/16/20 06/16/20 20:00 21:00 22:00 23:00 Pulse 72 70 75 Resp 30 32 30 B/P (MAP) 169/101 (123) 148/91 (110) 160/98 (118) Pulse Ox 96 97 97 O2 Delivery Bi-pap BiPAP/CPAP BiPAP/CPAP BiPAP/CPAP 06/17/20 06/17/20 06/17/20 06/17/20 00:00 00:00 00:25 01:00 Temp 98.7 98.7 Pulse 70 74 Resp 32 34 B/P (MAP) 146/89 (108) 168/101 (123) Pulse Ox 98 94 97 O2 Delivery BiPAP/CPAP Bi-pap BiPAP/CPAP BiPAP/CPAP 06/17/20 06/17/20 06/17/20 06/17/20 02:00 03:00 03:22 03:35 Pulse 73 70 71 Resp 34 28 B/P (MAP) 157/99 (118) 171/104 (126) 174/104 90/61 (71) Pulse Ox 98 98 O2 Delivery BiPAP/CPAP BiPAP/CPAP 06/17/20 06/17/20 06/17/20 06/17/20 04:00 04:00 04:40 05:00 Temp 98.5 98.5 Pulse 70 72 Resp 30 26 B/P (MAP) 92/61 (71) 121/78 (92) Pulse Ox 96 95 100 O2 Delivery BiPAP/CPAP Bi-pap BiPAP/CPAP BiPAP/CPAP 06/17/20 06/17/20 06/17/20 06/17/20 06:00 07:00 07:50 08:00 Temp 98.0 98.0 Pulse 70 67 64 Resp 22 26 28 B/P (MAP) 133/84 (100) 144/92 (109) 140/93 (109) Pulse Ox 100 100 100 100 O2 Delivery BiPAP/CPAP BiPAP/CPAP BiPAP/CPAP BiPAP/CPAP 06/17/20 06/17/20 06/17/20 06/17/20 08:00 09:00 09:04 10:00 Pulse 60 61 Resp 26 28 B/P (MAP) 167/97 (120) 156/92 (113) Pulse Ox 100 100 100 O2 Delivery Bi-pap BiPAP/CPAP BiPAP/CPAP BiPAP/CPAP Intake and Output 06/16/20 06/16/20 06/17/20 15:00 23:00 07:00 Intake Total 2761.5 ml 2560 ml Output Total 1150 ml 1525 ml 1540 ml Balance -1150 ml 1236.5 ml 1020 ml Nutrition Consultation Dietary Evaluation: Recommendations by RD: Dietary education by RD, Increase Calorie Intake, PPN/TPN Comments: REC advance diet as able pending mental status and respiratory status, goal diet regular w/Ensure supplements prn If unable to advance diet within 24 - 48 hrs, recommend short-term non-oral nutrition (ppn, dobhoff for TFs) Expected Outcomes/Goals: diet advancement Interpretation of weight loss: >7.5% in 3 months Malnutrition Findings: Food and Nutrition Intake (Mod: <75% est energy req 7days Weight Status: Appropriate Justicifation of Admission Dx: Justifications for Admission: Justification of Admission Dx: Yes PAXTON BOND MD Jun 17, 2020 10:44
--- NOTE | 2020-06-17 13:42 | NUR ---
SS following up with discharge planning. SS reviewed pt chart and discussed with pt RN. Pt is on nasal canula oxygen and PPN. Pt on CIWA protocol. PAT team referral made for ETOH. Per RN, pt not alert at this time. Pt is self pay. SS will continue to follow for discharge planning.
--- NOTE | 2020-06-17 13:43 | NUR ---
Patient put on O2 per NC while eating. Tolerating NC during lunch. Patient started having increased respirations and increasing anxiety. Put bipap back on patient since his respirations were up to 56.
--- NOTE | 2020-06-17 15:28 | NUR ---
Patient currently sleeping without bipap and without oxygen since he refused it all and pulled it off when attempting to put it back on. Respiratory rate 34.
[2020-06-17] MEDS: ENOXAPARIN 40 MG/0.4 ML SYRINGE. SQ SCH (20:48)
[2020-06-18] VITALS (22 sets, daily range): BP systolic 115–168; BP diastolic 70–97
[2020-06-18] MEDS: IV RINGERS,LACTATED 1000ML 1,000 ML IV SCH (00:50)
[2020-06-18] MEDS: DEXMEDETOMIDINE 400 MCG in IV NORMAL SALINE 100ML 96 ML IV PRN ×5 (02:07→23:25)
[2020-06-18 06:03] LABS: BASO % 1 % (0-3); CALCIUM 8.8 mg/dL (8.5-10.1); CREATININE 0.7 mg/dL (0.7-1.3); EOS # 0.2 x10^3/uL (0.0-0.7); EOS % 2 % (0-3); GFR 116.7; HEMATOCRIT 34.6 % (39.0-53.0); HEMOGLOBIN 12.1 g/dL (13.0-17.5); LYMPH % 11 % (24-48); MEAN CORPUSCULAR HEMOGLOBIN 33 pg (25-35); MEAN CORPUSCULAR HGB CONC 35 g/dL (31-37); MEAN CORPUSCULAR VOLUME 96 fL (79-100); MONO # 0.9 x10^3/uL (0.0-1.1); MONO % 10 % (0-9); NEUT # 6.7 x10^3/uL (1.8-7.7); NEUT % 76 % (31-73); PLATELET COUNT 108 x10^3/uL (140-400); RED BLOOD COUNT 3.62 x10^6/uL (4.30-5.70); RED CELL DISTRIBUTION WIDTH 13.1 % (11.5-14.5); WHITE BLOOD COUNT 8.8 x10^3/uL (4.0-11.0)
[2020-06-18 06:05] LABS: POTASSIUM 2.4 mmol/L (3.5-5.1)
[2020-06-18] MEDS ORDERED: POTASSIUM CHLORIDE 20MEQ 100 ML IV ONE ×3 (06:15→10:15)
[2020-06-18] MEDS: POTASSIUM CHLORIDE 10MEQ 100 ML IV SCH ×6 (06:32→11:47)
--- NOTE | 2020-06-18 06:43 | PDOC ---
PULMONARY PROGRESS NOTES Subjective agitated at times, on ra, appears comfortable Vitals Vital Signs Date Time Temp Pulse Resp B/P (MAP) Pulse Ox O2 Delivery O2 Flow Rate FiO2 06/18/20 04:00 Room Air 06/18/20 02:54 3.0 06/18/20 02:00 68 36 153/86 (108) 96 06/18/20 00:00 98.0 98.0 Comments agitated at times on ra HEENT: Other (nc at perrl ) Lungs: Clear Cardiovascular: S1, S2 Abdomen: Soft, Non-tender Extremities: No Edema Skin: Warm Labs Laboratory Tests Test 06/16/20 08:00 06/17/20 04:00 06/17/20 08:00 06/17/20 12:40 O2 Saturation 87 % (92-99) 97 % (92-99) Arterial Blood pH 7.43 (7.35-7.45) 7.41 (7.35-7.45) Arterial Blood pCO2 at Patient Temp 36 mmHg (35-46) 41 mmHg (35-46) Arterial Blood pO2 at Patient Temp 55 mmHg (75-108) 94 mmHg (75-108) Arterial Blood HCO3 24 mmol/L (21-28) 26 mmol/L (21-28) Arterial Blood Base Excess 0 mmol/L (-3-3) 1 mmol/L (-3-3) FiO2 60 40% bipap White Blood Count 9.7 x10^3/uL (4.0-11.0) Red Blood Count 3.49 x10^6/uL (4.30-5.70) Hemoglobin 11.6 g/dL (13.0-17.5) Hematocrit 33.6 % (39.0-53.0) Mean Corpuscular Volume 96 fL (79-100) Mean Corpuscular Hemoglobin 33 pg (25-35) Mean Corpuscular Hemoglobin Concent 34 g/dL (31-37) Red Cell Distribution Width 12.9 % (11.5-14.5) Platelet Count 89 x10^3/uL (140-400) Neutrophils (%) (Auto) 86 % (31-73) Lymphocytes (%) (Auto) 6 % (24-48) Monocytes (%) (Auto) 8 % (0-9) Eosinophils (%) (Auto) 1 % (0-3) Basophils (%) (Auto) 0 % (0-3) Neutrophils # (Auto) 8.4 x10^3/uL (1.8-7.7) Lymphocytes # (Auto) 0.6 x10^3/uL (1.0-4.8) Monocytes # (Auto) 0.7 x10^3/uL (0.0-1.1) Eosinophils # (Auto) 0.1 x10^3/uL (0.0-0.7) Basophils # (Auto) 0.0 x10^3/uL (0.0-0.2) Sodium Level 133 mmol/L (136-145) Potassium Level 2.8 mmol/L (3.5-5.1) 3.4 mmol/L (3.5-5.1) Chloride Level 95 mmol/L (98-107) Carbon Dioxide Level 25 mmol/L (21-32) Anion Gap 13 (6-14) Blood Urea Nitrogen 7 mg/dL (8-26) Creatinine 0.6 mg/dL (0.7-1.3) Estimated GFR (Cockcroft-Gault) 139.4 Glucose Level 82 mg/dL (70-99) Calcium Level 8.3 mg/dL (8.5-10.1) Total Bilirubin 1.0 mg/dL (0.2-1.0) Direct Bilirubin 0.4 mg/dL (0.0-0.2) Aspartate Amino Transf (AST/SGOT) 29 U/L (15-37) Alanine Aminotransferase (ALT/SGPT) 25 U/L (16-63) Alkaline Phosphatase 43 U/L (46-116) Total Protein 6.9 g/dL (6.4-8.2) Albumin 3.2 g/dL (3.4-5.0) Test 06/18/20 05:00 White Blood Count 8.8 x10^3/uL (4.0-11.0) Red Blood Count 3.62 x10^6/uL (4.30-5.70) Hemoglobin 12.1 g/dL (13.0-17.5) Hematocrit 34.6 % (39.0-53.0) Mean Corpuscular Volume 96 fL (79-100) Mean Corpuscular Hemoglobin 33 pg (25-35) Mean Corpuscular Hemoglobin Concent 35 g/dL (31-37) Red Cell Distribution Width 13.1 % (11.5-14.5) Platelet Count 108 x10^3/uL (140-400) Neutrophils (%) (Auto) 76 % (31-73) Lymphocytes (%) (Auto) 11 % (24-48) Monocytes (%) (Auto) 10 % (0-9) Eosinophils (%) (Auto) 2 % (0-3) Basophils (%) (Auto) 1 % (0-3) Neutrophils # (Auto) 6.7 x10^3/uL (1.8-7.7) Lymphocytes # (Auto) 1.0 x10^3/uL (1.0-4.8) Monocytes # (Auto) 0.9 x10^3/uL (0.0-1.1) Eosinophils # (Auto) 0.2 x10^3/uL (0.0-0.7) Basophils # (Auto) 0.0 x10^3/uL (0.0-0.2) Sodium Level 132 mmol/L (136-145) Potassium Level 2.4 mmol/L (3.5-5.1) Chloride Level 94 mmol/L (98-107) Carbon Dioxide Level 30 mmol/L (21-32) Anion Gap 8 (6-14) Blood Urea Nitrogen 7 mg/dL (8-26) Creatinine 0.7 mg/dL (0.7-1.3) Estimated GFR (Cockcroft-Gault) 116.7 Glucose Level 128 mg/dL (70-99) Calcium Level 8.8 mg/dL (8.5-10.1) Laboratory Tests Test 06/17/20 08:00 06/17/20 12:40 06/18/20 05:00 O2 Saturation 97 % (92-99) Arterial Blood pH 7.41 (7.35-7.45) Arterial Blood pCO2 at Patient Temp 41 mmHg (35-46) Arterial Blood pO2 at Patient Temp 94 mmHg (75-108) Arterial Blood HCO3 26 mmol/L (21-28) Arterial Blood Base Excess 1 mmol/L (-3-3) FiO2 40% bipap Potassium Level 3.4 mmol/L (3.5-5.1) 2.4 mmol/L (3.5-5.1) White Blood Count 8.8 x10^3/uL (4.0-11.0) Red Blood Count 3.62 x10^6/uL (4.30-5.70) Hemoglobin 12.1 g/dL (13.0-17.5) Hematocrit 34.6 % (39.0-53.0) Mean Corpuscular Volume 96 fL (79-100) Mean Corpuscular Hemoglobin 33 pg (25-35) Mean Corpuscular Hemoglobin Concent 35 g/dL (31-37) Red Cell Distribution Width 13.1 % (11.5-14.5) Platelet Count 108 x10^3/uL (140-400) Neutrophils (%) (Auto) 76 % (31-73) Lymphocytes (%) (Auto) 11 % (24-48) Monocytes (%) (Auto) 10 % (0-9) Eosinophils (%) (Auto) 2 % (0-3) Basophils (%) (Auto) 1 % (0-3) Neutrophils # (Auto) 6.7 x10^3/uL (1.8-7.7) Lymphocytes # (Auto) 1.0 x10^3/uL (1.0-4.8) Monocytes # (Auto) 0.9 x10^3/uL (0.0-1.1) Eosinophils # (Auto) 0.2 x10^3/uL (0.0-0.7) Basophils # (Auto) 0.0 x10^3/uL (0.0-0.2) Sodium Level 132 mmol/L (136-145) Chloride Level 94 mmol/L (98-107) Carbon Dioxide Level 30 mmol/L (21-32) Anion Gap 8 (6-14) Blood Urea Nitrogen 7 mg/dL (8-26) Creatinine 0.7 mg/dL (0.7-1.3) Estimated GFR (Cockcroft-Gault) 116.7 Glucose Level 128 mg/dL (70-99) Calcium Level 8.8 mg/dL (8.5-10.1) Medications Active Scripts Medications Dose Route/Sig Max Daily Dose Days Date Category Norvasc (Amlodipine Besylate) 5 Mg Tablet 1 Tab PO DAILY 06/16/20 Reported Atenolol 100 Mg Tablet 1 Tab PO DAILY 06/16/20 Reported Omeprazole 40 Mg Capsule.dr 1 Cap PO DAILY 06/16/20 Reported Quinapril Hcl 40 Mg Tablet 1 Tab PO DAILY 30 06/16/20 Reported Gabapentin (Gabapentin) 300 Mg Capsule 300 Mg PO TID 06/16/20 Reported Fluoxetine Hcl 20 Mg Capsule 1 Cap PO DAILY 06/16/20 Reported Ativan (Lorazepam) 1 Mg Tablet 2 Mg PO TID 7 03/24/20 Rx Impression . IMPRESSION: 1. Acute hypoxemic respiratory failure, multifactorial, suspect underlying chronic obstructive pulmonary disease/asthma along with current metabolic encephalopathy. on ra 2. Metabolic encephalopathy present upon admission. 3. Hyponatremia. 4. Alcoholism. 5. Possible withdrawal. 6. Hypertension. 7. SARS-CoV-2 negative Plan . 02 titration IV banana bag monitor k na SARS-CoV-2 negative elevate hob avoid oversedation discussed w rn will sign off but available for any help JAN SHERIDAN MD Jun 18, 2020 06:43
[2020-06-18] MEDS: AMINO AC 3%/ELECTROLYTE/GLYCER 1,000 ML IV SCH ×2 (09:15→20:58)
[2020-06-18] MEDS: MULTIVIT INFUSN,ADULT 4,VIT K 10 ML, THIAMINE INJ 100 MG, FOLIC ACID INJ 1 MG in IV NOR... IV SCH (09:15)
[2020-06-18] MEDS: NICOTINE 21MG PATCH. TD SCH (09:50)
--- NOTE | 2020-06-18 10:17 | PDOC ---
PROGRESS NOTES Chief Complaint Chief Complaint ASSESSMENT Acute Hypoxic Resp Failure Acute Encephalopathy Severe EtOH Withdrawal with hx of EtOH seizure Hypokalemia Hypomagnesemia Recent Incarceration COVID-19 rule out Thrombocytopenia ASSESSMENT monitor in ICU continue BIPAP support, wean as tolerated continue precidex drip/ativan. wean ativan as tolerated. etoh withdrawal protocol replace K+ pulm consulted DVT PPX FULL CODE covid screen negative labs in AM History of Present Illness History of Present Illness in resp distress this AM breathing 30x/min. ABG ordered and looks okay. trial of BIPAP this AM. family updated at bedside on plan of care. Vitals Vitals Vital Signs Date Time Temp Pulse Resp B/P (MAP) Pulse Ox O2 Delivery O2 Flow Rate FiO2 06/18/20 08:00 99.0 70 34 156/91 (112) 99 Room Air 99.0 06/18/20 02:54 3.0 Physical Exam General: moderate distress, Other Heart: Regular rate Lungs: Clear Abdomen: Normal bowel sounds, Soft Extremities: No clubbing, No cyanosis Skin: No rashes Labs LABS Laboratory Tests Test 06/17/20 12:40 06/18/20 05:00 Potassium Level 3.4 mmol/L (3.5-5.1) 2.4 mmol/L (3.5-5.1) White Blood Count 8.8 x10^3/uL (4.0-11.0) Red Blood Count 3.62 x10^6/uL (4.30-5.70) Hemoglobin 12.1 g/dL (13.0-17.5) Hematocrit 34.6 % (39.0-53.0) Mean Corpuscular Volume 96 fL (79-100) Mean Corpuscular Hemoglobin 33 pg (25-35) Mean Corpuscular Hemoglobin Concent 35 g/dL (31-37) Red Cell Distribution Width 13.1 % (11.5-14.5) Platelet Count 108 x10^3/uL (140-400) Neutrophils (%) (Auto) 76 % (31-73) Lymphocytes (%) (Auto) 11 % (24-48) Monocytes (%) (Auto) 10 % (0-9) Eosinophils (%) (Auto) 2 % (0-3) Basophils (%) (Auto) 1 % (0-3) Neutrophils # (Auto) 6.7 x10^3/uL (1.8-7.7) Lymphocytes # (Auto) 1.0 x10^3/uL (1.0-4.8) Monocytes # (Auto) 0.9 x10^3/uL (0.0-1.1) Eosinophils # (Auto) 0.2 x10^3/uL (0.0-0.7) Basophils # (Auto) 0.0 x10^3/uL (0.0-0.2) Sodium Level 132 mmol/L (136-145) Chloride Level 94 mmol/L (98-107) Carbon Dioxide Level 30 mmol/L (21-32) Anion Gap 8 (6-14) Blood Urea Nitrogen 7 mg/dL (8-26) Creatinine 0.7 mg/dL (0.7-1.3) Estimated GFR (Cockcroft-Gault) 116.7 Glucose Level 128 mg/dL (70-99) Calcium Level 8.8 mg/dL (8.5-10.1) Assessment and Plan Assessmemt and Plan Problems Medical Problems: (1) Alcohol withdrawal delirium Status: Acute (2) Delirium tremens Status: Acute Comment Review of Relevant I have reviewed the following items jeannie (where applicable) has been applied. Labs Laboratory Tests Test 06/17/20 04:00 06/17/20 08:00 06/17/20 12:40 06/18/20 05:00 White Blood Count 9.7 x10^3/uL (4.0-11.0) 8.8 x10^3/uL (4.0-11.0) Red Blood Count 3.49 x10^6/uL (4.30-5.70) 3.62 x10^6/uL (4.30-5.70) Hemoglobin 11.6 g/dL (13.0-17.5) 12.1 g/dL (13.0-17.5) Hematocrit 33.6 % (39.0-53.0) 34.6 % (39.0-53.0) Mean Corpuscular Volume 96 fL (79-100) 96 fL (79-100) Mean Corpuscular Hemoglobin 33 pg (25-35) 33 pg (25-35) Mean Corpuscular Hemoglobin Concent 34 g/dL (31-37) 35 g/dL (31-37) Red Cell Distribution Width 12.9 % (11.5-14.5) 13.1 % (11.5-14.5) Platelet Count 89 x10^3/uL (140-400) 108 x10^3/uL (140-400) Neutrophils (%) (Auto) 86 % (31-73) 76 % (31-73) Lymphocytes (%) (Auto) 6 % (24-48) 11 % (24-48) Monocytes (%) (Auto) 8 % (0-9) 10 % (0-9) Eosinophils (%) (Auto) 1 % (0-3) 2 % (0-3) Basophils (%) (Auto) 0 % (0-3) 1 % (0-3) Neutrophils # (Auto) 8.4 x10^3/uL (1.8-7.7) 6.7 x10^3/uL (1.8-7.7) Lymphocytes # (Auto) 0.6 x10^3/uL (1.0-4.8) 1.0 x10^3/uL (1.0-4.8) Monocytes # (Auto) 0.7 x10^3/uL (0.0-1.1) 0.9 x10^3/uL (0.0-1.1) Eosinophils # (Auto) 0.1 x10^3/uL (0.0-0.7) 0.2 x10^3/uL (0.0-0.7) Basophils # (Auto) 0.0 x10^3/uL (0.0-0.2) 0.0 x10^3/uL (0.0-0.2) Sodium Level 133 mmol/L (136-145) 132 mmol/L (136-145) Potassium Level 2.8 mmol/L (3.5-5.1) 3.4 mmol/L (3.5-5.1) 2.4 mmol/L (3.5-5.1) Chloride Level 95 mmol/L (98-107) 94 mmol/L (98-107) Carbon Dioxide Level 25 mmol/L (21-32) 30 mmol/L (21-32) Anion Gap 13 (6-14) 8 (6-14) Blood Urea Nitrogen 7 mg/dL (8-26) 7 mg/dL (8-26) Creatinine 0.6 mg/dL (0.7-1.3) 0.7 mg/dL (0.7-1.3) Estimated GFR (Cockcroft-Gault) 139.4 116.7 Glucose Level 82 mg/dL (70-99) 128 mg/dL (70-99) Calcium Level 8.3 mg/dL (8.5-10.1) 8.8 mg/dL (8.5-10.1) Total Bilirubin 1.0 mg/dL (0.2-1.0) Direct Bilirubin 0.4 mg/dL (0.0-0.2) Aspartate Amino Transf (AST/SGOT) 29 U/L (15-37) Alanine Aminotransferase (ALT/SGPT) 25 U/L (16-63) Alkaline Phosphatase 43 U/L (46-116) Total Protein 6.9 g/dL (6.4-8.2) Albumin 3.2 g/dL (3.4-5.0) O2 Saturation 97 % (92-99) Arterial Blood pH 7.41 (7.35-7.45) Arterial Blood pCO2 at Patient Temp 41 mmHg (35-46) Arterial Blood pO2 at Patient Temp 94 mmHg (75-108) Arterial Blood HCO3 26 mmol/L (21-28) Arterial Blood Base Excess 1 mmol/L (-3-3) FiO2 40% bipap Laboratory Tests Test 06/17/20 12:40 06/18/20 05:00 Potassium Level 3.4 mmol/L (3.5-5.1) 2.4 mmol/L (3.5-5.1) White Blood Count 8.8 x10^3/uL (4.0-11.0) Red Blood Count 3.62 x10^6/uL (4.30-5.70) Hemoglobin 12.1 g/dL (13.0-17.5) Hematocrit 34.6 % (39.0-53.0) Mean Corpuscular Volume 96 fL (79-100) Mean Corpuscular Hemoglobin 33 pg (25-35) Mean Corpuscular Hemoglobin Concent 35 g/dL (31-37) Red Cell Distribution Width 13.1 % (11.5-14.5) Platelet Count 108 x10^3/uL (140-400) Neutrophils (%) (Auto) 76 % (31-73) Lymphocytes (%) (Auto) 11 % (24-48) Monocytes (%) (Auto) 10 % (0-9) Eosinophils (%) (Auto) 2 % (0-3) Basophils (%) (Auto) 1 % (0-3) Neutrophils # (Auto) 6.7 x10^3/uL (1.8-7.7) Lymphocytes # (Auto) 1.0 x10^3/uL (1.0-4.8) Monocytes # (Auto) 0.9 x10^3/uL (0.0-1.1) Eosinophils # (Auto) 0.2 x10^3/uL (0.0-0.7) Basophils # (Auto) 0.0 x10^3/uL (0.0-0.2) Sodium Level 132 mmol/L (136-145) Chloride Level 94 mmol/L (98-107) Carbon Dioxide Level 30 mmol/L (21-32) Anion Gap 8 (6-14) Blood Urea Nitrogen 7 mg/dL (8-26) Creatinine 0.7 mg/dL (0.7-1.3) Estimated GFR (Cockcroft-Gault) 116.7 Glucose Level 128 mg/dL (70-99) Calcium Level 8.8 mg/dL (8.5-10.1) Medications Current Medications Sodium Chloride 1,000 ml @ 1,000 mls/hr Q1H IV Last administered on 06/15/20at 18:08; Start 06/15/20 at 17:43; Stop 06/15/20 at 18:42; Status DC Multivitamins 10 ml/Thiamine HCl 100 mg/Folic Acid 1 mg/Sodium Chloride 1,011.2 ml @ 1,000 mls/ hr 1X ONCE IV Last administered on 06/15/20at 18:16; Start 06/15/20 at 17:45; Stop 06/15/20 at 18:45; Status DC Lorazepam (Ativan Inj) 2 mg 1X ONCE IVP Last administered on 06/15/20at 18:07; Start 06/15/20 at 17:45; Stop 06/15/20 at 17:48; Status DC Lorazepam (Ativan Inj) 2 mg 1X ONCE IVP Last administered on 06/15/20at 18:49; Start 06/15/20 at 19:00; Stop 06/15/20 at 19:01; Status DC Multivitamins 10 ml/Thiamine HCl 100 mg/Folic Acid 1 mg/Sodium Chloride 1,011.2 ml @ 100 mls/ hr DAILY IV Last administered on 06/18/20at 09:15; Start 06/16/20 at 09:00; Stop 06/19/20 at 19:07 Multivitamins (Thera M Plus) 1 tab DAILY PO ; Start 06/20/20 at 09:00 Folic Acid (Folic Acid) 1 mg DAILY PO ; Start 06/20/20 at 09:00 Thiamine HCl 300 mg/Dextrose 53 ml @ 100 mls/hr DAILY IV ; Start 06/20/20 at 09:00; Stop 06/16/20 at 11:01; Status DC Lorazepam (Ativan) 4 mg PRN Q1HR PRN PO For CIWA 8-14; Start 06/15/20 at 19:45 Lorazepam (Ativan) 8 mg PRN Q1HR PRN PO For CIWA 15 or greater; Start 06/15/20 at 19:45 Haloperidol Lactate (Haldol Inj) 5 mg PRN Q4HRS PRN IVP Hallucinatns,Confusn,Delirium Last administered on 06/16/20at 04:01; Start 06/15/20 at 19:45 Diphenhydramine HCl (Benadryl) 25 mg PRN Q15MIN PRN IVP EPS symptoms 2'Haldol admin Last administered on 06/16/20at 04:01; Start 06/15/20 at 19:45 Clonidine HCl (Catapres) 0.1 mg PRN Q1HR PRN PO SBP > 180 or DBP > 100, MRX3; Start 06/15/20 at 19:45 Lorazepam (Ativan Inj) 2 mg PRN Q15MIN PRN IV SEE COMMENTS Last administered on 06/16/20at 05:42; Start 06/15/20 at 19:45 Enoxaparin Sodium (Lovenox 40mg Syringe) 40 mg Q24H SQ Last administered on 06/17/20at 20:48; Start 06/15/20 at 20:00 Heparin Sodium (Porcine) (Heparin Sodium) 5,000 unit Q12HR SQ ; Start 06/15/20 at 21:00; Status UNV Multivitamins 10 ml/Thiamine HCl 100 mg/Folic Acid 1 mg/Sodium Chloride 1,011.2 ml @ 100 mls/ hr 1X ONCE IV ; Start 06/15/20 at 22:15; Stop 06/16/20 at 08:21; Status UNV Ringer's Solution 1,000 ml @ 100 mls/hr Q10H IV Last administered on 06/18/20at 00:50; Start 06/15/20 at 22:30 Lorazepam (Ativan Inj) 4 mg PRN Q1HR PRN IV For CIWA 15 or greater Last administered on 06/18/20at 06:33; Start 06/15/20 at 22:15 Nicotine (Nicoderm Cq 21mg) 1 patch DAILY TD Last administered on 06/18/20at 09:50; Start 06/15/20 at 23:00 Dexmedetomidine HCl 400 mcg/ Sodium Chloride 100 ml @ 0 mls/hr CONT PRN IV AGITATION/ANXIETY Last administered on 06/18/20at 07:48; Start 06/16/20 at 05:45 Sodium Chloride 500 ml @ 500 mls/hr 1X PRN PRN IV LOW BP; Start 06/16/20 at 05:45 Atropine Sulfate (ATROPINE 0.5mg SYRINGE) 0.5 mg PRN Q5MIN PRN IV SEE COMMENTS; Start 06/16/20 at 05:45 Potassium Chloride/Water 100 ml @ 100 mls/hr Q1H IV Last administered on 06/01 05/21at 14:37; Start 06/16/20 at 06:00; Stop 06/16/20 at 17:59; Status DC Thiamine HCl 300 mg/Dextrose 53 ml @ 100 mls/hr DAILY IV ; Start 06/16/20 at 09:00; Stop 06/16/20 at 17:51; Status DC Thiamine HCl 250 mg/Dextrose 52.5 ml @ 102 mls/hr BID IV Last administered on 06/17/20at 08:15; Start 06/16/20 at 21:00; Stop 06/17/20 at 10:43; Status DC Lorazepam (Ativan Inj) 4 mg Q4HRS IVP Last administered on 06/18/20at 07:50; Start 06/16/20 at 20:00 Hydralazine HCl (Apresoline Inj) 20 mg PRN Q4HRS PRN IVP ELEVATED BP, SEE COMMENTS Last administered on 06/17/20at 03:22; Start 06/17/20 at 03:15 Potassium Chloride/Water 100 ml @ 100 mls/hr Q1H IV Last administered on 06/17/20at 09:24; Start 06/17/20 at 06:00; Stop 06/17/20 at 09:59; Status DC Hydralazine HCl (Apresoline Inj) 10 mg PRN Q4HRS PRN IVP ELEVATED BP, SEE COMMENTS; Start 06/17/20 at 06:00 Amino Acids/ Glycerin/ Electrolytes 1,000 ml @ 80 mls/hr [id number] IV Last administered on 06/18/20at 09:15; Start 06/17/20 at 08:00 Potassium Chloride/Water 100 ml @ 50 mls/hr 1X ONCE IV ; Start 06/18/20 at 06:15; Stop 06/18/20 at 08:14; Status UNV Potassium Chloride/Water 100 ml @ 50 mls/hr 1X ONCE IV ; Start 06/18/20 at 08:15; Stop 06/18/20 at 10:14; Status UNV Potassium Chloride/Water 100 ml @ 50 mls/hr 1X ONCE IV ; Start 06/18/20 at 10:15; Stop 06/18/20 at 12:14; Status UNV Potassium Chloride/Water 100 ml @ 100 mls/hr Q1H IV Last administered on 06/18/20at 09:49; Start 06/18/20 at 06:30; Stop 06/18/20 at 12:29 Active Scripts Active Ativan (Lorazepam) 1 Mg Tablet 2 Mg PO TID 7 Days Reported Norvasc (Amlodipine Besylate) 5 Mg Tablet 1 Tab PO DAILY Atenolol 100 Mg Tablet 1 Tab PO DAILY Omeprazole 40 Mg Capsule. 1 Cap PO DAILY Quinapril Hcl 40 Mg Tablet 1 Tab PO DAILY 30 Days Gabapentin (Gabapentin) 300 Mg Capsule 300 Mg PO TID Fluoxetine Hcl 20 Mg Capsule 1 Cap PO DAILY Vitals/I & O Vital Sign - Last 24 Hours 06/17/20 06/17/20 06/17/20 06/17/20 11:00 12:00 12:00 12:11 Temp 98.0 98.0 Pulse 58 76 Resp 26 28 B/P (MAP) 156/79 (104) 108/71 (83) Pulse Ox 100 97 100 O2 Delivery BiPAP/CPAP BiPAP/CPAP Bi-pap BiPAP/CPAP 06/17/20 06/17/20 06/17/20 06/17/20 13:00 14:00 15:00 15:43 Pulse 84 77 72 Resp 38 45 40 B/P (MAP) 142/84 (103) 149/86 (107) 163/85 (111) Pulse Ox 99 99 93 93 O2 Delivery BiPAP/CPAP Room Air Room Air Room Air 06/17/20 06/17/20 06/17/20 06/17/20 16:00 16:00 17:00 18:00 Temp 97.4 97.4 Pulse 75 85 77 Resp 36 45 45 B/P (MAP) 145/61 (89) 151/74 (99) 150/54 (86) Pulse Ox 93 94 95 O2 Delivery Room Air Room Air Room Air Room Air 06/17/20 06/17/20 06/17/20 06/17/20 19:00 20:00 20:00 21:00 Temp 99.0 99.0 Pulse 70 68 68 Resp 35 36 34 B/P (MAP) 115/71 (86) 134/69 (90) 179/97 (124) Pulse Ox 95 96 96 O2 Delivery Room Air Room Air Room Air Room Air 06/17/20 06/17/20 06/17/20 06/18/20 22:00 23:00 23:59 00:00 Temp 98.0 98.0 Pulse 68 68 68 Resp 35 32 34 B/P (MAP) 162/91 (114) 143/82 (102) Pulse Ox 97 97 97 O2 Delivery Room Air Room Air Room Air Room Air O2 Flow Rate 3.0 06/18/20 06/18/20 06/18/20 06/18/20 01:00 02:00 02:54 03:00 Pulse 68 68 Resp 30 36 B/P (MAP) 135/77 (96) 153/86 (108) 145/84 (104) Pulse Ox 97 96 O2 Delivery Room Air O2 Flow Rate 3.0 06/18/20 06/18/20 06/18/20 06/18/20 03:00 04:00 04:00 05:00 Temp 98.0 98.0 Pulse 66 72 Resp 16 B/P (MAP) 145/84 (104) 146/85 (105) Pulse Ox 97 97 96 O2 Delivery Room Air Room Air Room Air 06/18/20 06/18/20 06/18/20 06/18/20 06:00 07:00 08:00 08:00 Temp 99.0 99.0 Pulse 80 72 70 Resp 16 33 34 B/P (MAP) 123/70 (87) 123/77 (92) 156/91 (112) Pulse Ox 96 98 99 O2 Delivery Room Air Room Air Room Air Room Air Intake and Output 06/17/20 06/17/20 06/18/20 15:00 23:00 07:00 Intake Total 922.5 ml 3122.28 ml 0 ml Output Total 2020 ml 3800 ml 2150 ml Balance -1097.5 ml -677.72 ml -2150 ml Nutrition Consultation Dietary Evaluation: Recommendations by RD: Dietary education by RD, Increase Calorie Intake, PPN/TPN Comments: REC advance diet as able pending mental status and respiratory status, goal diet regular w/Ensure supplements prn If unable to advance diet within 24 - 48 hrs, recommend short-term non-oral nutrition (ppn, dobhoff for TFs) Expected Outcomes/Goals: diet advancement Interpretation of weight loss: >7.5% in 3 months Malnutrition Findings: Food and Nutrition Intake (Mod: <75% est energy req 7days Weight Status: Appropriate Justicifation of Admission Dx: Justifications for Admission: Justification of Admission Dx: Yes PAXTON BOND MD Jun 18, 2020 10:17
[2020-06-18] MEDS: ENOXAPARIN 40 MG/0.4 ML SYRINGE. SQ SCH (20:13)
[2020-06-19] VITALS (24 sets, daily range): BP systolic 107–180; BP diastolic 76–104
[2020-06-19] MEDS: DEXMEDETOMIDINE 400 MCG in IV NORMAL SALINE 100ML 96 ML IV PRN ×4 (05:59→22:45)
[2020-06-19] MEDS: NICOTINE 21MG PATCH. TD SCH (09:00)
[2020-06-19] MEDS: MULTIVIT INFUSN,ADULT 4,VIT K 10 ML, THIAMINE INJ 100 MG, FOLIC ACID INJ 1 MG in IV NOR... IV SCH (09:00)
[2020-06-19] MEDS: AMINO AC 3%/ELECTROLYTE/GLYCER 1,000 ML IV SCH (09:33)
[2020-06-19 10:14] LABS: CALCIUM 8.7 mg/dL (8.5-10.1); CREATININE 0.6 mg/dL (0.7-1.3); GFR 139.4; MAGNESIUM 1.5 mg/dL (1.8-2.4)
[2020-06-19 10:17] LABS: POTASSIUM 2.9 mmol/L (3.5-5.1)
--- NOTE | 2020-06-19 10:24 | PDOC ---
PROGRESS NOTES Chief Complaint Chief Complaint ASSESSMENT Acute Hypoxic Resp Failure, RESOLVING Acute Encephalopathy secodary to etoh withdrawal Severe EtOH Withdrawal with hx of EtOH seizure Hypokalemia Hypomagnesemia Recent Incarceration COVID-19 rule out Thrombocytopenia PLAN monitor in ICU continue BIPAP support, wean as tolerated currently off precedex drip and scheduled ativan. now on prn ativan. etoh withdrawal protocol banana bag replace K+ and Mg+ DVT PPX FULL CODE covid screen negative follow Mg and K advance diet as tolerated History of Present Illness History of Present Illness in resp distress this AM breathing 30x/min. ABG ordered and looks okay. trial of BIPAP this AM. family updated at bedside on plan of care. Vitals Vitals Vital Signs Date Time Temp Pulse Resp B/P (MAP) Pulse Ox O2 Delivery O2 Flow Rate FiO2 06/19/20 08:00 98.9 68 3 147/104 (118) 100 Room Air 98.9 Physical Exam General: moderate distress, Other Heart: Regular rate Lungs: Clear Abdomen: Normal bowel sounds, Soft Extremities: No clubbing, No cyanosis Skin: No rashes Labs LABS Laboratory Tests Test 06/19/20 09:50 Sodium Level 135 mmol/L (136-145) Potassium Level 2.9 mmol/L (3.5-5.1) Chloride Level 98 mmol/L (98-107) Carbon Dioxide Level 28 mmol/L (21-32) Anion Gap 9 (6-14) Blood Urea Nitrogen 10 mg/dL (8-26) Creatinine 0.6 mg/dL (0.7-1.3) Estimated GFR (Cockcroft-Gault) 139.4 Glucose Level 124 mg/dL (70-99) Calcium Level 8.7 mg/dL (8.5-10.1) Magnesium Level 1.5 mg/dL (1.8-2.4) Assessment and Plan Assessmemt and Plan Problems Medical Problems: (1) Alcohol withdrawal delirium Status: Acute (2) Delirium tremens Status: Acute Comment Review of Relevant I have reviewed the following items jeannie (where applicable) has been applied. Labs Laboratory Tests Test 06/17/20 12:40 06/18/20 05:00 06/19/20 09:50 Potassium Level 3.4 mmol/L (3.5-5.1) 2.4 mmol/L (3.5-5.1) 2.9 mmol/L (3.5-5.1) White Blood Count 8.8 x10^3/uL (4.0-11.0) Red Blood Count 3.62 x10^6/uL (4.30-5.70) Hemoglobin 12.1 g/dL (13.0-17.5) Hematocrit 34.6 % (39.0-53.0) Mean Corpuscular Volume 96 fL (79-100) Mean Corpuscular Hemoglobin 33 pg (25-35) Mean Corpuscular Hemoglobin Concent 35 g/dL (31-37) Red Cell Distribution Width 13.1 % (11.5-14.5) Platelet Count 108 x10^3/uL (140-400) Neutrophils (%) (Auto) 76 % (31-73) Lymphocytes (%) (Auto) 11 % (24-48) Monocytes (%) (Auto) 10 % (0-9) Eosinophils (%) (Auto) 2 % (0-3) Basophils (%) (Auto) 1 % (0-3) Neutrophils # (Auto) 6.7 x10^3/uL (1.8-7.7) Lymphocytes # (Auto) 1.0 x10^3/uL (1.0-4.8) Monocytes # (Auto) 0.9 x10^3/uL (0.0-1.1) Eosinophils # (Auto) 0.2 x10^3/uL (0.0-0.7) Basophils # (Auto) 0.0 x10^3/uL (0.0-0.2) Sodium Level 132 mmol/L (136-145) 135 mmol/L (136-145) Chloride Level 94 mmol/L (98-107) 98 mmol/L (98-107) Carbon Dioxide Level 30 mmol/L (21-32) 28 mmol/L (21-32) Anion Gap 8 (6-14) 9 (6-14) Blood Urea Nitrogen 7 mg/dL (8-26) 10 mg/dL (8-26) Creatinine 0.7 mg/dL (0.7-1.3) 0.6 mg/dL (0.7-1.3) Estimated GFR (Cockcroft-Gault) 116.7 139.4 Glucose Level 128 mg/dL (70-99) 124 mg/dL (70-99) Calcium Level 8.8 mg/dL (8.5-10.1) 8.7 mg/dL (8.5-10.1) Magnesium Level 1.5 mg/dL (1.8-2.4) Laboratory Tests Test 06/19/20 09:50 Sodium Level 135 mmol/L (136-145) Potassium Level 2.9 mmol/L (3.5-5.1) Chloride Level 98 mmol/L (98-107) Carbon Dioxide Level 28 mmol/L (21-32) Anion Gap 9 (6-14) Blood Urea Nitrogen 10 mg/dL (8-26) Creatinine 0.6 mg/dL (0.7-1.3) Estimated GFR (Cockcroft-Gault) 139.4 Glucose Level 124 mg/dL (70-99) Calcium Level 8.7 mg/dL (8.5-10.1) Magnesium Level 1.5 mg/dL (1.8-2.4) Medications Current Medications Sodium Chloride 1,000 ml @ 1,000 mls/hr Q1H IV Last administered on 06/15/20at 18:08; Start 06/15/20 at 17:43; Stop 06/15/20 at 18:42; Status DC Multivitamins 10 ml/Thiamine HCl 100 mg/Folic Acid 1 mg/Sodium Chloride 1,011.2 ml @ 1,000 mls/ hr 1X ONCE IV Last administered on 06/15/20at 18:16; Start 06/15/20 at 17:45; Stop 06/15/20 at 18:45; Status DC Lorazepam (Ativan Inj) 2 mg 1X ONCE IVP Last administered on 06/15/20at 18:07; Start 06/15/20 at 17:45; Stop 06/15/20 at 17:48; Status DC Lorazepam (Ativan Inj) 2 mg 1X ONCE IVP Last administered on 06/15/20at 18:49; Start 06/15/20 at 19:00; Stop 06/15/20 at 19:01; Status DC Multivitamins 10 ml/Thiamine HCl 100 mg/Folic Acid 1 mg/Sodium Chloride 1,011.2 ml @ 100 mls/ hr DAILY IV Last administered on 06/19/20at 09:00; Start 06/16/20 at 09:00; Stop 06/19/20 at 19:07 Multivitamins (Thera M Plus) 1 tab DAILY PO ; Start 06/20/20 at 09:00 Folic Acid (Folic Acid) 1 mg DAILY PO ; Start 06/20/20 at 09:00 Thiamine HCl 300 mg/Dextrose 53 ml @ 100 mls/hr DAILY IV ; Start 06/20/20 at 09:00; Stop 06/16/20 at 11:01; Status DC Lorazepam (Ativan) 4 mg PRN Q1HR PRN PO For CIWA 8-14; Start 06/15/20 at 19:45 Lorazepam (Ativan) 8 mg PRN Q1HR PRN PO For CIWA 15 or greater; Start 06/15/20 at 19:45 Haloperidol Lactate (Haldol Inj) 5 mg PRN Q4HRS PRN IVP Hallucinatns,Confusn,Delirium Last administered on 06/16/20at 04:01; Start 06/15/20 at 19:45 Diphenhydramine HCl (Benadryl) 25 mg PRN Q15MIN PRN IVP EPS symptoms 2'Haldol admin Last administered on 06/16/20at 04:01; Start 06/15/20 at 19:45 Clonidine HCl (Catapres) 0.1 mg PRN Q1HR PRN PO SBP > 180 or DBP > 100, MRX3; Start 06/15/20 at 19:45 Lorazepam (Ativan Inj) 2 mg PRN Q15MIN PRN IV SEE COMMENTS Last administered on 06/19/20at 05:54; Start 06/15/20 at 19:45 Enoxaparin Sodium (Lovenox 40mg Syringe) 40 mg Q24H SQ Last administered on 06/18/20at 20:13; Start 06/15/20 at 20:00 Heparin Sodium (Porcine) (Heparin Sodium) 5,000 unit Q12HR SQ ; Start 06/15/20 at 21:00; Status UNV Multivitamins 10 ml/Thiamine HCl 100 mg/Folic Acid 1 mg/Sodium Chloride 1,011.2 ml @ 100 mls/ hr 1X ONCE IV ; Start 06/15/20 at 22:15; Stop 06/16/20 at 08:21; Status UNV Ringer's Solution 1,000 ml @ 100 mls/hr Q10H IV Last administered on 06/18/20at 00:50; Start 06/15/20 at 22:30 Lorazepam (Ativan Inj) 4 mg PRN Q1HR PRN IV For CIWA 15 or greater Last administered on 06/19/20at 06:48; Start 06/15/20 at 22:15 Nicotine (Nicoderm Cq 21mg) 1 patch DAILY TD Last administered on 06/19/20at 09:00; Start 06/15/20 at 23:00 Dexmedetomidine HCl 400 mcg/ Sodium Chloride 100 ml @ 0 mls/hr CONT PRN IV AGITATION/ANXIETY Last administered on 06/19/20at 05:59; Start 06/16/20 at 05:45 Sodium Chloride 500 ml @ 500 mls/hr 1X PRN PRN IV LOW BP; Start 06/16/20 at 05:45 Atropine Sulfate (ATROPINE 0.5mg SYRINGE) 0.5 mg PRN Q5MIN PRN IV SEE COMMENTS; Start 06/16/20 at 05:45 Potassium Chloride/Water 100 ml @ 100 mls/hr Q1H IV Last administered on 06/16/20at 14:37; Start 06/16/20 at 06:00; Stop 06/16/20 at 17:59; Status DC Thiamine HCl 300 mg/Dextrose 53 ml @ 100 mls/hr DAILY IV ; Start 06/16/20 at 09:00; Stop 06/16/20 at 17:51; Status DC Thiamine HCl 250 mg/Dextrose 52.5 ml @ 102 mls/hr BID IV Last administered on 06/17/20at 08:15; Start 06/16/20 at 21:00; Stop 06/17/20 at 10:43; Status DC Lorazepam (Ativan Inj) 4 mg Q4HRS IVP Last administered on 06/18/20at 07:50; Start 06/16/20 at 20:00; Stop 06/18/20 at 10:47; Status DC Hydralazine HCl (Apresoline Inj) 20 mg PRN Q4HRS PRN IVP ELEVATED BP, SEE COMMENTS Last administered on 06/17/20at 03:22; Start 06/17/20 at 03:15 Potassium Chloride/Water 100 ml @ 100 mls/hr Q1H IV Last administered on 06/17at 09:24; Start 06/17/20 at 06:00; Stop 06/17/20 at 09:59; Status DC Hydralazine HCl (Apresoline Inj) 10 mg PRN Q4HRS PRN IVP ELEVATED BP, SEE COMMENTS; Start 06/17/20 at 06:00 Amino Acids/ Glycerin/ Electrolytes 1,000 ml @ 80 mls/hr [id number] IV Last administered on 06/19/20at 09:33; Start 06/17/20 at 08:00 Potassium Chloride/Water 100 ml @ 50 mls/hr 1X ONCE IV ; Start 06/18/20 at 06:15; Stop 06/18/20 at 08:14; Status UNV Potassium Chloride/Water 100 ml @ 50 mls/hr 1X ONCE IV ; Start 06/18/20 at 0 8:15; Stop 06/18/20 at 10:14; Status UNV Potassium Chloride/Water 100 ml @ 50 mls/hr 1X ONCE IV ; Start 06/18/20 at 10:15; Stop 06/18/20 at 12:14; Status UNV Potassium Chloride/Water 100 ml @ 100 mls/hr Q1H IV Last administered on 06/18/20at 11:47; Start 06/18/20 at 06:30; Stop 06/18/20 at 12:29; Status DC Active Scripts Active Ativan (Lorazepam) 1 Mg Tablet 2 Mg PO TID 7 Days Reported Norvasc (Amlodipine Besylate) 5 Mg Tablet 1 Tab PO DAILY Atenolol 100 Mg Tablet 1 Tab PO DAILY Omeprazole 40 Mg Capsule.dr 1 Cap PO DAILY Quinapril Hcl 40 Mg Tablet 1 Tab PO DAILY 30 Days Gabapentin (Gabapentin) 300 Mg Capsule 300 Mg PO TID Fluoxetine Hcl 20 Mg Capsule 1 Cap PO DAILY Vitals/I & O Vital Sign - Last 24 Hours 06/18/20 06/18/20 06/18/20 06/18/20 11:08 12:00 12:00 13:00 Temp 98.9 98.9 Pulse 64 69 65 Resp 32 2 33 B/P (MAP) 162/82 (108) 132/91 (105) 160/89 (112) Pulse Ox 98 99 97 O2 Delivery Room Air Room Air Room Air Room Air 06/18/20 06/18/20 06/18/20 06/18/20 14:00 15:00 16:00 16:00 Temp 98.6 98.6 Pulse 69 66 69 Resp 32 40 44 B/P (MAP) 164/92 (116) 160/90 (113) 115/77 (90) Pulse Ox 99 98 98 O2 Delivery Room Air Room Air Room Air Room Air 06/18/20 06/18/20 06/18/20 06/18/20 17:00 18:00 19:00 20:00 Temp 98.4 98.4 Pulse 73 67 66 81 Resp 39 32 29 33 B/P (MAP) 150/95 (113) 165/95 (118) 168/93 (118) 145/92 (109) Pulse Ox 99 99 100 100 O2 Delivery Room Air Room Air Room Air Room Air 06/18/20 06/18/20 06/18/20 06/18/20 20:00 21:00 22:00 23:00 Pulse 72 64 66 Resp 28 33 25 B/P (MAP) 164/97 (119) 164/94 (117) 163/90 (114) Pulse Ox 100 100 100 O2 Delivery Room Air Room Air Room Air Room Air 06/19/20 06/19/20 06/19/20 06/19/20 00:00 00:00 01:00 02:00 Pulse 74 81 82 Resp 32 30 33 B/P (MAP) 109/76 (87) 126/90 (102) 126/90 (102) Pulse Ox 100 100 100 O2 Delivery Room Air Room Air Room Air Room Air 06/19/20 06/19/20 06/19/20 06/19/20 03:00 04:00 04:00 05:00 Temp 98.3 98.3 Pulse 67 82 100 Resp 38 34 27 B/P (MAP) 139/83 (101) 142/86 (104) 151/104 (120) Pulse Ox 100 100 100 O2 Delivery Room Air Room Air Room Air Room Air 06/19/20 06/19/20 06/19/20 06/19/20 06:00 07:00 08:00 08:00 Temp 98.9 98.9 Pulse 95 79 68 Resp 41 36 3 B/P (MAP) 122/78 (93) 141/97 (112) 147/104 (118) Pulse Ox 100 100 100 O2 Delivery Room Air Room Air Room Air Room Air l Intake and Output 06/18/20 06/18/20 06/19/20 15:00 23:00 07:00 Intake Total 0 ml 0 ml Output Total 1075 ml 725 ml 1125 ml Balance -1075 ml -725 ml -1125 ml Nutrition Consultation Dietary Evaluation: Recommendations by RD: Dietary education by RD, Increase Calorie Intake, PPN/TPN Comments: REC advance diet as able pending mental status and respiratory status, goal diet regular w/Ensure supplements prn If unable to advance diet within 24 - 48 hrs, recommend short-term non-oral nutrition (ppn, dobhoff for TFs) Expected Outcomes/Goals: diet advancement Interpretation of weight loss: >7.5% in 3 months Malnutrition Findings: Food and Nutrition Intake (Mod: <75% est energy req 7days Weight Status: Appropriate Justicifation of Admission Dx: Justifications for Admission: Justification of Admission Dx: Yes PAXTON BOND MD Jun 19, 2020 10:24
[2020-06-19] MEDS ORDERED: MAGNESIUM SULFATE 4GM 100 ML IV ONE (10:30)
[2020-06-19] MEDS ORDERED: ELECTROLYTE (ICU) PROTOCOL. MC PRN (10:30)
[2020-06-19] MEDS: POTASSIUM CL 40MEQ IN 0.9%NACL 1,000 ML IV SCH (10:43)
[2020-06-19] MEDS: POTASSIUM CHLORIDE 20MEQ 100 ML IV SCH ×2 (11:00→13:24)
[2020-06-19] MEDS: IPRATRPIUM/ALBUTEROL 0.5/2.5MG 3 ML NEBU. NEB SCH (20:06)
[2020-06-19] MEDS: ENOXAPARIN 40 MG/0.4 ML SYRINGE. SQ SCH (21:07)
[2020-06-20] VITALS (15 sets, daily range): BP systolic 134–186; BP diastolic 66–110
[2020-06-20] MEDS: POTASSIUM CL 40MEQ IN 0.9%NACL 1,000 ML IV SCH ×2 (00:02→12:22)
[2020-06-20] MEDS: AMINO AC 3%/ELECTROLYTE/GLYCER 1,000 ML IV SCH (00:03)
[2020-06-20] MEDS: diphenhydrAMINE 50 MG/ML VIAL IVP PRN ×3 (00:39→08:10)
[2020-06-20] MEDS: HALOPERIDOL LACTATE 5 MG/ML VIAL. IVP PRN (04:50)
[2020-06-20] MEDS: NICOTINE 21MG PATCH. TD SCH (08:10)
[2020-06-20] MEDS: FOLIC ACID 1 MG TABLET. PO SCH (08:13)
[2020-06-20] MEDS: MULTIVITAMIN with MINERAL TABLET. PO SCH (08:13)
[2020-06-20] MEDS ORDERED: POTASSIUM CHLORIDE 10MEQ 100 ML IV SCH (08:30)
[2020-06-20] MEDS: IPRATRPIUM/ALBUTEROL 0.5/2.5MG 3 ML NEBU. NEB SCH (08:32)
[2020-06-20] MEDS: POTASSIUM CHLORIDE 20 MEQ TABLET.ER. PO SCH ×3 (08:39→13:32)
[2020-06-20] MEDS ORDERED: THIAMINE INJ 300 MG in IV DEXTROSE 5% 50 ML IV SCH (09:00)
[2020-06-20] MEDS ORDERED: MAGNESIUM SULFATE 4GM 100 ML IV ONE (09:00)
[2020-06-20 10:51] LABS: CALCIUM 9.1 mg/dL (8.5-10.1); CREATININE 0.7 mg/dL (0.7-1.3); GFR 116.7; POTASSIUM 3.2 mmol/L (3.5-5.1)
[2020-06-20 10:57] LABS: BASO % 1 % (0-3); EOS # 0.2 x10^3/uL (0.0-0.7); EOS % 3 % (0-3); HEMATOCRIT 33.3 % (39.0-53.0); HEMOGLOBIN 11.4 g/dL (13.0-17.5); LYMPH # 0.6 x10^3/uL (1.0-4.8); LYMPH % 9 % (24-48); MEAN CORPUSCULAR HEMOGLOBIN 33 pg (25-35); MEAN CORPUSCULAR HGB CONC 34 g/dL (31-37); MEAN CORPUSCULAR VOLUME 97 fL (79-100); MONO # 1.2 x10^3/uL (0.0-1.1); MONO % 17 % (0-9); NEUT # 4.8 x10^3/uL (1.8-7.7); NEUT % 71 % (31-73); PLATELET COUNT 208 x10^3/uL (140-400); RED BLOOD COUNT 3.43 x10^6/uL (4.30-5.70); RED CELL DISTRIBUTION WIDTH 13.1 % (11.5-14.5); WHITE BLOOD COUNT 6.7 x10^3/uL (4.0-11.0)
[2020-06-20] MEDS: FLUoxetine HCL 20 MG CAPSULE PO SCH (12:19)
[2020-06-20] MEDS: LISINOPRIL 20 MG TABLET PO SCH (12:19)
[2020-06-20] MEDS: amLODIPine BESYLATE 5 MG TABLET PO SCH (12:20)
[2020-06-20] MEDS: ATENOLOL 50 MG TABLET. PO SCH (12:20)
[2020-06-20] MEDS: LORazepam 1 MG TABLET PO SCH ×2 (13:32→20:37)
[2020-06-20] MEDS: GABAPENTIN 300 MG CAPSULE. PO SCH ×2 (13:32→20:38)
--- NOTE | 2020-06-20 13:46 | NUR ---
SS following up with discharge planning. SS reviewed pt chart and discussed with pt RN. Pt is currently on room air. Pt on CIWA protocol. Kenrick from PAT team met with pt and pt getting Prozac through primary care physician. [facility] scheduled for 1030 on 06/21/2020 for level III referral. Per Kenrick pt will discharge to home with his spouse when medically cleared and follow up with substance abuse treatment. Kenrick reported that pt has AA and sponsor. SS will continue to follow for discharge planning.
--- NOTE | 2020-06-20 13:53 | PDOC ---
[employer] PROGRESS NOTE Chief Complaint Chief Complaint Acute Hypoxic Resp Failure, RESOLVING Acute Encephalopathy secodary to etoh withdrawal Severe EtOH Withdrawal with hx of EtOH seizure Hypokalemia Hypomagnesemia Recent Incarceration COVID-19 rule out Thrombocytopenia History of Present Illness History of Present Illness 06/20/2020 Patient seen and examined He is in the ICU and very frail and weak His is present Discussed with RN Discussed with case management Chart reviewed He is now off Precedex Vitals/I&O Vitals/I&O: Vital Signs Date Time Temp Pulse Resp B/P (MAP) Pulse Ox O2 Delivery O2 Flow Rate FiO2 06/20/20 12:20 134 162/99 06/20/20 11:46 98.9 36 98 Room Air 98.9 I & O 06/19/20 06/19/20 06/20/20 15:00 23:00 07:00 Intake Total 4652 ml 2736 ml Output Total 1375 ml 2575 ml 2320 ml Balance -1375 ml 2077 ml 416 ml Physical Exam General: moderate distress, Other Heart: Regular rate Lungs: Clear Abdomen: Normal bowel sounds, Soft Extremities: No clubbing, No cyanosis Skin: No rashes Labs Labs: Laboratory Tests Test 06/20/20 09:45 06/20/20 09:55 White Blood Count 6.7 x10^3/uL (4.0-11.0) Red Blood Count 3.43 x10^6/uL (4.30-5.70) Hemoglobin 11.4 g/dL (13.0-17.5) Hematocrit 33.3 % (39.0-53.0) Mean Corpuscular Volume 97 fL (79-100) Mean Corpuscular Hemoglobin 33 pg (25-35) Mean Corpuscular Hemoglobin Concent 34 g/dL (31-37) Red Cell Distribution Width 13.1 % (11.5-14.5) Platelet Count 208 x10^3/uL (140-400) Neutrophils (%) (Auto) 71 % (31-73) Lymphocytes (%) (Auto) 9 % (24-48) Monocytes (%) (Auto) 17 % (0-9) Eosinophils (%) (Auto) 3 % (0-3) Basophils (%) (Auto) 1 % (0-3) Neutrophils # (Auto) 4.8 x10^3/uL (1.8-7.7) Lymphocytes # (Auto) 0.6 x10^3/uL (1.0-4.8) Monocytes # (Auto) 1.2 x10^3/uL (0.0-1.1) Eosinophils # (Auto) 0.2 x10^3/uL (0.0-0.7) Basophils # (Auto) 0.0 x10^3/uL (0.0-0.2) Sodium Level 139 mmol/L (136-145) Potassium Level 3.2 mmol/L (3.5-5.1) Chloride Level 102 mmol/L (98-107) Carbon Dioxide Level 27 mmol/L (21-32) Anion Gap 10 (6-14) Blood Urea Nitrogen 8 mg/dL (8-26) Creatinine 0.7 mg/dL (0.7-1.3) Estimated GFR (Cockcroft-Gault) 116.7 Glucose Level 131 mg/dL (70-99) Calcium Level 9.1 mg/dL (8.5-10.1) Phosphorus Level 1.7 mg/dL (2.6-4.7) Review of Systems Review of Systems: Complains of weakness and tremors Assessment and Plan Assessmemt and Plan Problems Medical Problems: (1) Alcohol withdrawal delirium Status: Acute (2) Delirium tremens Status: Acute Acute Hypoxic Resp Failure, RESOLVING Acute Encephalopathy secodary to etoh withdrawal Severe EtOH Withdrawal with hx of EtOH seizure (he drinks 18-30 beers a day per his ) Hypokalemia Hypomagnesemia Recent Incarceration COVID-19 rule out Thrombocytopenia Plan ICU monitoring Alcohol withdrawal protocol We started Proza We have an appointment with Christiano the morning Appreciate subspecialist input Home meds DVT prophylaxis Full code Trend labs Long-term prognosis guarded if he does not quit drinking Comment Review of Relevant I have reviewed the following items jeannie (where applicable) has been applied. Medications: Current Medications Medications (Trade) Dose Ordered Sig/Sheri Route PRN Reason Start Time Stop Time Status Last Admin Dose Admin Multivitamins (Thera M Plus) 1 tab DAILY PO 06/20/20 09:00 06/20/20 08:13 Folic Acid (Folic Acid) 1 mg DAILY PO 06/20/20 09:00 06/20/20 08:13 Albuterol/ Ipratropium (Duoneb) 3 ml RTQID NEB 06/19/20 20:00 06/20/20 12:43 DC 06/20/20 08:32 Potassium Chloride (Klor-Con) 40 meq Q2H PO 06/20/20 08:45 06/20/20 12:46 DC 06/20/20 13:32 Magnesium Sulfate 100 ml @ 50 mls/hr 1X ONCE IV 06/20/20 09:00 06/20/20 10:59 DC 06/20/20 08:55 Amlodipine Besylate (Norvasc) 5 mg DAILY PO 06/20/20 11:00 06/20/20 12:20 Fluoxetine HCl (PROzac) 20 mg DAILY PO 06/20/20 11:00 06/20/20 12:19 Gabapentin (Neurontin) 300 mg TID PO 06/20/20 14:00 06/20/20 13:32 Lorazepam (Ativan) 2 mg TID PO 06/20/20 14:00 06/20/20 13:32 Atenolol (Tenormin) 100 mg DAILY PO 06/20/20 11:00 06/20/20 12:20 Lisinopril (Prinivil) 40 mg DAILY PO 06/20/20 11:00 06/20/20 12:19 Justicifation of Admission Dx: Justifications for Admission: Justification of Admission Dx: Yes SANTANA ROACH III DO Jun 20, 2020 13:53
[2020-06-20] MEDS: ENOXAPARIN 40 MG/0.4 ML SYRINGE. SQ SCH (20:37)
[2020-06-21 03:00] VITALS: BP 164/97
[2020-06-21] MEDS: POTASSIUM CL 40MEQ IN 0.9%NACL 1,000 ML IV SCH ×2 (03:00→17:25)
[2020-06-21 07:46] VITALS: BP 153/96
[2020-06-21] MEDS: NICOTINE 21MG PATCH. TD SCH (09:20)
[2020-06-21] MEDS: LORazepam 1 MG TABLET PO SCH ×3 (09:21→21:11)
[2020-06-21] MEDS: GABAPENTIN 300 MG CAPSULE. PO SCH ×3 (09:21→21:11)
[2020-06-21] MEDS: LISINOPRIL 20 MG TABLET PO SCH (09:21)
[2020-06-21] MEDS: amLODIPine BESYLATE 5 MG TABLET PO SCH (09:22)
[2020-06-21] MEDS: FLUoxetine HCL 20 MG CAPSULE PO SCH (09:22)
[2020-06-21] MEDS: ATENOLOL 50 MG TABLET. PO SCH (09:22)
[2020-06-21] MEDS: MULTIVITAMIN with MINERAL TABLET. PO SCH (09:22)
[2020-06-21] MEDS: FOLIC ACID 1 MG TABLET. PO SCH (09:22)
[2020-06-21 10:20] LABS: HEMATOCRIT 34.1 % (39.0-53.0); HEMOGLOBIN 11.6 g/dL (13.0-17.5); RED BLOOD COUNT 3.51 x10^6/uL (4.30-5.70); RED CELL DISTRIBUTION WIDTH 12.9 % (11.5-14.5); WHITE BLOOD COUNT 7.1 x10^3/uL (4.0-11.0)
[2020-06-21 10:28] LABS: CALCIUM 8.9 mg/dL (8.5-10.1); CREATININE 0.6 mg/dL (0.7-1.3); GFR 139.4; POTASSIUM 4.1 mmol/L (3.5-5.1)
[2020-06-21 11:45] VITALS: BP 137/87
--- NOTE | 2020-06-21 12:07 | NUR ---
SS following up with discharge planning. SS reviewed pt chart and discussed with pt RN. Pt is currently on room air. [facility] was completed with pt and spouse. Kenrick following up with [facility] to see if anything else is needed. Pt on CIWA protocol. COVID19 negative. Discharge plan is to home with spouse when ready. SS will continue to follow for discharge planning.
--- NOTE | 2020-06-21 13:10 | PDOC ---
[employer] PROGRESS NOTE Chief Complaint Chief Complaint Acute Hypoxic Resp Failure, RESOLVING Acute Encephalopathy secodary to EtOH withdrawal Severe EtOH Withdrawal with hx of EtOH seizure Hypokalemia Hypomagnesemia Recent Incarceration History of Present Illness History of Present Illness 06/21/2020 Patient seen and examined Chart reviewed Discussed with RN 06/20/2020 Patient seen and examined He is in the ICU and very frail and weak His is present Discussed with RN Discussed with case management Chart reviewed He is now off Precedex Vitals/I&O Vitals/I&O: Vital Signs Date Time Temp Pulse Resp B/P (MAP) Pulse Ox O2 Delivery O2 Flow Rate FiO2 06/21/20 11:45 98.8 72 32 137/87 (104) 98 Room Air 98.8 I & O 06/20/20 06/20/20 06/21/20 14:59 22:59 06:59 Intake Total 1700 ml 2339 ml Output Total 2700 ml 1400 ml 1035 ml Balance -2700 ml 300 ml 1304 ml Physical Exam General: Alert, Cooperative, mild distress Heart: Regular rate Lungs: Clear Abdomen: Normal bowel sounds, Soft, Other (No distension ) Extremities: No clubbing, No cyanosis Skin: No rashes Labs Labs: Laboratory Tests Test 06/21/20 09:10 White Blood Count 7.1 x10^3/uL (4.0-11.0) Red Blood Count 3.51 x10^6/uL (4.30-5.70) Hemoglobin 11.6 g/dL (13.0-17.5) Hematocrit 34.1 % (39.0-53.0) Mean Corpuscular Volume 97 fL (79-100) Mean Corpuscular Hemoglobin 33 pg (25-35) Mean Corpuscular Hemoglobin Concent 34 g/dL (31-37) Red Cell Distribution Width 12.9 % (11.5-14.5) Platelet Count 261 x10^3/uL (140-400) Sodium Level 137 mmol/L (136-145) Potassium Level 4.1 mmol/L (3.5-5.1) Chloride Level 101 mmol/L (98-107) Carbon Dioxide Level 26 mmol/L (21-32) Anion Gap 10 (6-14) Blood Urea Nitrogen 7 mg/dL (8-26) Creatinine 0.6 mg/dL (0.7-1.3) Estimated GFR (Cockcroft-Gault) 139.4 Glucose Level 88 mg/dL (70-99) Calcium Level 8.9 mg/dL (8.5-10.1) Magnesium Level 1.6 mg/dL (1.8-2.4) Assessment and Plan Assessmemt and Plan Problems Medical Problems: (1) Alcohol withdrawal delirium Status: Acute (2) Delirium tremens Status: Acute Plan PT/OT consult Gabapentin Prozac Alcohol withdrawal protocol Appreciate subspecialist input Home meds DVT prophylaxis Full code Trend labs Long-term prognosis guarded if he does not quit drinking Comment Review of Relevant I have reviewed the following items jeannie (where applicable) has been applied. Medications: Current Medications Medications (Trade) Dose Ordered Sig/Sheri Route PRN Reason Start Time Stop Time Status Last Admin Dose Admin Gabapentin (Neurontin) 300 mg TID PO 06/20/20 14:00 06/21/20 09:21 Lorazepam (Ativan) 2 mg TID PO 06/20/20 14:00 06/21/20 09:21 Justicifation of Admission Dx: Justifications for Admission: Justification of Admission Dx: Yes SANTANA ROACH III DO Jun 21, 2020 13:10
[2020-06-21 15:00] VITALS: BP 146/89
[2020-06-21] MEDS ORDERED: MAGNESIUM SULFATE 4GM 100 ML IV ONE (15:00)
[2020-06-21] MEDS: ALBUTEROL SULFATE 2.5 MG/3 ML NEBU. NEB PRN ×2 (15:24→23:08)
[2020-06-21 19:25] VITALS: BP 145/89
[2020-06-21] MEDS: ENOXAPARIN 40 MG/0.4 ML SYRINGE. SQ SCH (21:12)
[2020-06-21 23:56] VITALS: BP 153/96
[2020-06-22 03:10] VITALS: BP 143/94
[2020-06-22] MEDS: POTASSIUM CL 40MEQ IN 0.9%NACL 1,000 ML IV SCH ×2 (05:43→15:47)
[2020-06-22 07:24] VITALS: BP 159/92
[2020-06-22] MEDS: FLUoxetine HCL 20 MG CAPSULE PO SCH (09:05)
[2020-06-22] MEDS: FOLIC ACID 1 MG TABLET. PO SCH (09:05)
[2020-06-22] MEDS: MULTIVITAMIN with MINERAL TABLET. PO SCH (09:05)
[2020-06-22] MEDS: CETIRIZINE HCL 10 MG TABLET. PO SCH (09:05)
[2020-06-22] MEDS: GABAPENTIN 300 MG CAPSULE. PO SCH ×3 (09:05→20:56)
[2020-06-22] MEDS: amLODIPine BESYLATE 5 MG TABLET PO SCH (09:05)
[2020-06-22] MEDS: ATENOLOL 50 MG TABLET. PO SCH (09:06)
[2020-06-22] MEDS: NICOTINE 21MG PATCH. TD SCH (09:06)
[2020-06-22] MEDS: LISINOPRIL 20 MG TABLET PO SCH (09:06)
[2020-06-22] MEDS ORDERED: VENTOLIN HFA18 GM INH (09:15)
[2020-06-22] MEDS: LORazepam 1 MG TABLET PO SCH ×3 (10:21→20:56)
[2020-06-22 11:00] VITALS: BP 162/102
--- NOTE | 2020-06-22 12:06 | PDOC ---
[employer] PROGRESS NOTE Chief Complaint Chief Complaint Acute Hypoxic Resp Failure, RESOLVING Acute Encephalopathy secodary to EtOH withdrawal Severe EtOH Withdrawal with hx of EtOH seizure Hypokalemia Hypomagnesemia Recent Incarceration History of Present Illness History of Present Illness 06/21/2020 Patient seen and examined, up in chair with PT/OT Chart reviewed Discussed with RN Discussed with PT/OT 06/21/2020 Patient seen and examined Chart reviewed Discussed with RN 06/20/2020 Patient seen and examined He is in the ICU and very frail and weak His is present Discussed with RN Discussed with case management Chart reviewed He is now off Precedex Vitals/I&O Vitals/I&O: Vital Signs Date Time Temp Pulse Resp B/P (MAP) Pulse Ox O2 Delivery O2 Flow Rate FiO2 06/22/20 11:00 98.3 68 20 162/102 (122) 97 Room Air 98.3 06/21/20 23:56 I & O 06/21/20 06/21/20 06/22/20 15:00 23:00 07:00 Intake Total 1500 ml 100 ml 1801 ml Output Total 450 ml 2550 ml 1950 ml Balance 1050 ml -2450 ml -149 ml Physical Exam General: Alert, Cooperative, mild distress Heart: Regular rate Lungs: Clear Abdomen: Normal bowel sounds, Soft, Other (No distension ) Extremities: No clubbing, No cyanosis Skin: No rashes Assessment and Plan Assessmemt and Plan Problems Medical Problems: (1) Alcohol withdrawal delirium Status: Acute (2) Delirium tremens Status: Acute Acute Hypoxic Resp Failure, RESOLVING Acute Encephalopathy secodary to EtOH withdrawal Severe EtOH Withdrawal with hx of EtOH seizure Hypokalemia Hypomagnesemia Recent Incarceration Plan: PT/OT recommend acute rehab or SNF Discuss with upper caser Gabapentin Prozac Alcohol withdrawal protocol Appreciate subspecialist input Home meds DVT prophylaxis Full code Trend labs Long-term prognosis guarded if he does not quit drinking Comment Review of Relevant I have reviewed the following items jeannie (where applicable) has been applied. Medications: Current Medications Medications (Trade) Dose Ordered Sig/Sheri Route PRN Reason Start Time Stop Time Status Last Admin Dose Admin Cetirizine HCl (ZyrTEC) 10 mg DAILY PO 06/22/20 09:00 06/22/20 09:05 Magnesium Sulfate 100 ml @ 25 mls/hr 1X ONCE IV 06/21/20 15:00 06/21/20 18:59 DC 06/21/20 14:53 Justicifation of Admission Dx: Justifications for Admission: Justification of Admission Dx: Yes SANTANA ROACH III DO Jun 22, 2020 12:06
--- NOTE | 2020-06-22 14:30 | NUR ---
Pt transferred from room 105 to room 412 by wheelchair via transportation. Belongings sent with pt at time of transfer. Janel, notified of move.
--- NOTE | 2020-06-22 14:50 | NUR ---
SS following up with discharge planning. SS reviewed pt chart and discussed with pt RN. Pt transferring to room 412. SS discussed with Magy ALEXIS, pt is self pay. Med Assist reported that pt's spouse has applied for health coverage through the marketplace. Pt's spouse has also applied for disability and medicaid for pt. Med Assist to meet with spouse tomorrow, 06/23/2020, to discuss status of applications. Pt on CIWA protocol and had [facility] on 06/21/2020. Pt has sponsor through [employer]. Discharge plan is to home with spouse when ready.
[2020-06-22 15:00] VITALS: BP 127/78
[2020-06-22 19:02] VITALS: BP 163/91
[2020-06-22] MEDS: ENOXAPARIN 40 MG/0.4 ML SYRINGE. SQ SCH (20:57)
[2020-06-22 23:00] VITALS: BP 150/88
[2020-06-23 03:00] VITALS: BP 135/85
[2020-06-23] MEDS: POTASSIUM CL 40MEQ IN 0.9%NACL 1,000 ML IV SCH ×2 (06:23→20:57)
[2020-06-23 07:00] VITALS: BP 130/88
[2020-06-23] MEDS: GABAPENTIN 300 MG CAPSULE. PO SCH ×3 (09:12→20:56)
[2020-06-23] MEDS: FLUoxetine HCL 20 MG CAPSULE PO SCH (09:13)
[2020-06-23] MEDS: amLODIPine BESYLATE 5 MG TABLET PO SCH (09:13)
[2020-06-23] MEDS: MULTIVITAMIN with MINERAL TABLET. PO SCH (09:13)
[2020-06-23] MEDS: CETIRIZINE HCL 10 MG TABLET. PO SCH (09:14)
[2020-06-23] MEDS: ATENOLOL 50 MG TABLET. PO SCH (09:14)
[2020-06-23] MEDS: FOLIC ACID 1 MG TABLET. PO SCH (09:15)
[2020-06-23] MEDS: LISINOPRIL 20 MG TABLET PO SCH (09:15)
[2020-06-23] MEDS: LORazepam 1 MG TABLET PO SCH ×3 (09:15→20:56)
[2020-06-23] MEDS: NICOTINE 21MG PATCH. TD SCH (09:16)
--- NOTE | 2020-06-23 10:54 | NUR ---
SW following. Discussed with RN, pt should discharge home, as everything has been arranged for pt. No further SW needs. SW will continue to follow.
[2020-06-23 11:00] VITALS: BP 123/85
--- NOTE | 2020-06-23 14:01 | NUR ---
pt removed IV unintentionally. states it "Just fell out or came out when i was plugging in my phone". orders to leave out per Dr. Camacho.
--- NOTE | 2020-06-23 14:28 | PDOC ---
PROGRESS NOTES Chief Complaint Chief Complaint Acute Hypoxic Resp Failure, RESOLVING Acute Encephalopathy secodary to EtOH withdrawal Severe EtOH Withdrawal with hx of EtOH seizure Hypokalemia Hypomagnesemia Recent Incarceration History of Present Illness History of Present Illness 06/23/2020 Patient still seems somewhat shaky. Long conversation took place regarding the importance of obtaining sobriety. The patient has had attempts in the past to stay sober for unfortunately events in life have made him go "over the age". I will encourage more ambulation today and he seems to be quite motivated in order to do that. Hopefully he will be able to be discharged soon 06/22/2020 Patient seen and examined, up in chair with PT/OT Chart reviewed Discussed with RN Discussed with PT/OT 06/21/2020 Patient seen and examined Chart reviewed Discussed with RN 06/20/2020 Patient seen and examined He is in the ICU and very frail and weak His is present Discussed with RN Discussed with case management Chart reviewed He is now off Precedex Vitals Vitals Vital Signs Date Time Temp Pulse Resp B/P (MAP) Pulse Ox O2 Delivery O2 Flow Rate FiO2 06/23/20 11:00 98.4 66 16 123/85 (98) 94 Room Air 98.4 Physical Exam General: Alert, Cooperative, mild distress Heart: Regular rate Lungs: Clear Abdomen: Normal bowel sounds, Soft, Other (No distension ) Extremities: No clubbing, No cyanosis Skin: No rashes Review of Systems Review of Systems Pertinent as per HPI otherwise 14 point review of system is negative Assessment and Plan Assessmemt and Plan Problems Medical Problems: (1) Alcohol withdrawal delirium Status: Acute (2) Delirium tremens Status: Acute Comment Review of Relevant I have reviewed the following items jeannie (where applicable) has been applied. Medications Current Medications Sodium Chloride 1,000 ml @ 1,000 mls/hr Q1H IV Last administered on 06/15/20at 18:08; Start 06/15/20 at 17:43; Stop 06/15/20 at 18:42; Status DC Multivitamins 10 ml/Thiamine HCl 100 mg/Folic Acid 1 mg/Sodium Chloride 1,011.2 ml @ 1,000 mls/ hr 1X ONCE IV Last administered on 06/15/20at 18:16; Start 06/15/20 at 17:45; Stop 06/15/20 at 18:45; Status DC Lorazepam (Ativan Inj) 2 mg 1X ONCE IVP Last administered on 06/15/20at 18:07; Start 06/15/20 at 17:45; Stop 06/15/20 at 17:48; Status DC Lorazepam (Ativan Inj) 2 mg 1X ONCE IVP Last administered on 06/15/20at 18:49; Start 06/15/20 at 19:00; Stop 06/15/20 at 19:01; Status DC Multivitamins 10 ml/Thiamine HCl 100 mg/Folic Acid 1 mg/Sodium Chloride 1,011.2 ml @ 100 mls/ hr DAILY IV Last administered on 06/19/20at 09:00; Start 06/16/20 at 09:00; Stop 06/19/20 at 19:07; Status DC Multivitamins (Thera M Plus) 1 tab DAILY PO Last administered on 06/23/20at 09:13; Start 06/20/20 at 09:00 Folic Acid (Folic Acid) 1 mg DAILY PO Last administered on 06/23/20at 09:15; Start 06/20/20 at 09:00 Thiamine HCl 300 mg/Dextrose 53 ml @ 100 mls/hr DAILY IV ; Start 06/20/20 at 09:00; Stop 06/16/20 at 11:01; Status DC Lorazepam (Ativan) 4 mg PRN Q1HR PRN PO For CIWA 8-14; Start 06/15/20 at 19:45 Lorazepam (Ativan) 8 mg PRN Q1HR PRN PO For CIWA 15 or greater; Start 06/15/20 at 19:45 Haloperidol Lactate (Haldol Inj) 5 mg PRN Q4HRS PRN IVP Hallucinatns,Confusn,Delirium Last administered on 06/20/20at 04:50; Start 06/15/20 at 19:45 Diphenhydramine HCl (Benadryl) 25 mg PRN Q15MIN PRN IVP EPS symptoms 2'Haldol admin Last administered on 06/20/20at 08:10; Start 06/15/20 at 19:45 Clonidine HCl (Catapres) 0.1 mg PRN Q1HR PRN PO SBP > 180 or DBP > 100, MRX3; Start 06/15/20 at 19:45 Lorazepam (Ativan Inj) 2 mg PRN Q15MIN PRN IV SEE COMMENTS Last administered on 06/20/20at 06:30; Start 06/15/20 at 19:45; Stop 06/23/20 at 09:52; Status DC Enoxaparin Sodium (Lovenox 40mg Syringe) 40 mg Q24H SQ Last administered on 06/22/20at 20:57; Start 06/15/20 at 20:00 Heparin Sodium (Porcine) (Heparin Sodium) 5,000 unit Q12HR SQ ; Start 06/15/20 at 21:00; Status UNV Multivitamins 10 ml/Thiamine HCl 100 mg/Folic Acid 1 mg/Sodium Chloride 1,011.2 ml @ 100 mls/ hr 1X ONCE IV ; Start 06/15/20 at 22:15; Stop 06/16/20 at 08:21; Status UNV Ringer's Solution 1,000 ml @ 100 mls/hr Q10H IV Last administered on 06/18/20at 00:50; Start 06/15/20 at 22:30; Stop 06/19/20 at 11:56; Status DC Lorazepam (Ativan Inj) 4 mg PRN Q1HR PRN IV For CIWA 15 or greater Last admi nistered on 06/20/20at 08:11; Start 06/15/20 at 22:15 Nicotine (Nicoderm Cq 21mg) 1 patch DAILY TD Last administered on 06/23/20at 09:16; Start 06/15/20 at 23:00 Dexmedetomidine HCl 400 mcg/ Sodium Chloride 100 ml @ 0 mls/hr CONT PRN IV AGITATION/ANXIETY Last administered on 06/19/20at 22:45; Start 06/16/20 at 05:45; Stop 06/23/20 at 09:52; Status DC Sodium Chloride 500 ml @ 500 mls/hr 1X PRN PRN IV LOW BP; Start 06/16/20 at 05:45 Atropine Sulfate (ATROPINE 0.5mg SYRINGE) 0.5 mg PRN Q5MIN PRN IV SEE COMMENTS; Start 06/16/20 at 05:45; Stop 06/23/20 at 09:52; Status DC Potassium Chloride/Water 100 ml @ 100 mls/hr Q1H IV Last administered on 06/16/20at 14:37; Start 06/16/20 at 06:00; Stop 06/16/20 at 17:59; Status DC Thiamine HCl 300 mg/Dextrose 53 ml @ 100 mls/hr DAILY IV ; Start 06/16/20 at 09:00; Stop 06/16/20 at 17:51; Status DC Thiamine HCl 250 mg/Dextrose 52.5 ml @ 102 mls/hr BID IV Last administered on 06/17/20at 08:15; Start 06/16/20 at 21:00; Stop 06/17/20 at 10:43; Status DC Lorazepam (Ativan Inj) 4 mg Q4HRS IVP Last administered on 06/18/20at 07:50; Start 06/16/20 at 20:00; Stop 06/18/20 at 10:47; Status DC Hydralazine HCl (Apresoline Inj) 20 mg PRN Q4HRS PRN IVP ELEVATED BP, SEE COMMENTS Last administered on 06/17/20at 03:22; Start 06/17/20 at 03:15 Potassium Chloride/Water 100 ml @ 100 mls/hr Q1H IV Last administered on 06/17/20at 09:24; Start 06/17/20 at 06:00; Stop 06/17/20 at 09:59; Status DC Hydralazine HCl (Apresoline Inj) 10 mg PRN Q4HRS PRN IVP ELEVATED BP, SEE COMMENTS Last administered on 06/20/20at 05:03; Start 06/17/20 at 06:00 Amino Acids/ Glycerin/ Electrolytes 1,000 ml @ 80 mls/hr [id number] IV Last a dministered on 06/20/20at 00:03; Start 06/17/20 at 08:00; Stop 06/20/20 at 13:22; Status DC Potassium Chloride/Water 100 ml @ 50 mls/hr 1X ONCE IV ; Start 06/18/20 at 06:15; Stop 06/18/20 at 08:14; Status UNV Potassium Chloride/Water 100 ml @ 50 mls/hr 1X ONCE IV ; Start 06/18/20 at 08:15; Stop 06/18/20 at 10:14; Status UNV Potassium Chloride/Water 100 ml @ 50 mls/hr 1X ONCE IV ; Start 06/18/20 at 10:15; Stop 06/18/20 at 12:14; Status UNV Potassium Chloride/Water 100 ml @ 100 mls/hr Q1H IV Last administered on 06/18/20at 11:47; Start 06/18/20 at 06:30; Stop 06/18/20 at 12:29; Status DC Potassium Chloride/Sodium Chloride 1,000 ml @ 75 mls/hr [id number] IV Last administered on 06/23/20at 06:23; Start 06/19/20 at 10:30 Potassium Chloride/Water 100 ml @ 100 mls/hr Q1H IV Last administered on 06/19/20at 13:24; Start 06/19/20 at 11:00; Stop 06/19/20 at 12:59; Status DC Info (Icu Electrolyte Protocol) 1 ea CONT PRN PRN MC PER PROTOCOL; Start 06/19/20 at 10:30; Stop 06/23/20 at 09:52; Status DC Magnesium Sulfate 100 ml @ 25 mls/hr 1X ONCE IV Last administered on 06/19/20at 11:20; Start 06/19/20 at 10:30; Stop 06/19/20 at 14:29; Status DC Albuterol/ Ipratropium (Duoneb) 3 ml RTQID NEB Last administered on 06/20/20at 08:32; Start 06/19/20 at 20:00; Stop 06/20/20 at 12:43; Status DC Potassium Chloride/Water 100 ml @ 100 mls/hr Q1H IV ; Start 06/20/20 at 08:30; Stop 06/20/20 at 08:35; Status DC Potassium Chloride (Klor-Con) 40 meq Q2H PO Last administered on 06/20/20at 13:32; Start 06/20/20 at 08:45; Stop 06/20/20 at 12:46; Status DC Magnesium Sulfate 100 ml @ 50 mls/hr 1X ONCE IV Last administered on 06/20/20at 08:55; Start 06/20/20 at 09:00; Stop 06/20/20 at 10:59; Status DC Amlodipine Besylate (Norvasc) 5 mg DAILY PO Last administered on 06/23/20at 09:13; Start 06/20/20 at 11:00 Fluoxetine HCl (PROzac) 20 mg DAILY PO Last administered on 06/23/20at 09:13; Start 06/20/20 at 11:00 Gabapentin (Neurontin) 300 mg TID PO Last administered on 06/23/20 09:12; Start 06/20/20 at 14:00 Lorazepam (Ativan) 2 mg TID PO Last administered on 06/23/20 09:15; Start 06/20/20 at 14:00 Atenolol (Tenormin) 100 mg DAILY PO Last administered on 06/23/20 09:14; Start 06/20/20 at 11:00 Lisinopril (Prinivil) 40 mg DAILY PO Last administered on 06/23/20 09:15; Start 06/20/20 at 11:00 Albuterol Sulfate (Ventolin Neb Soln) 2.5 mg PRN Q4HRS PRN NEB SHORTNESS OF BREATH Last administered on 06/21/20 23:08; Start 06/20/20 at 12:45 Cetirizine HCl (ZyrTEC) 10 mg DAILY PO Last administered on 06/23/20 09:14; Start 06/22/20 at 09:00 Magnesium Sulfate 100 ml @ 25 mls/hr 1X ONCE IV Last administered on 06/21/20at 14:53; Start 06/21/20 at 15:00; Stop 06/21/20 at 18:59; Status DC Active Scripts Active Ativan (Lorazepam) 1 Mg Tablet 2 Mg PO TID 7 Days Reported Ventolin Hfa Inhaler (Albuterol Sulfate) 18 Gm Hfa.aer.ad 2 Puff INH QID Norvasc (Amlodipine Besylate) 5 Mg Tablet 1 Tab PO DAILY Atenolol 100 Mg Tablet 1 Tab PO DAILY Omeprazole 40 Mg Capsule. 1 Cap PO DAILY Quinapril Hcl 40 Mg Tablet 1 Tab PO DAILY 30 Days Gabapentin (Gabapentin) 300 Mg Capsule 300 Mg PO TID Fluoxetine Hcl 20 Mg Capsule 1 Cap PO DAILY Vitals/I & O Vital Sign - Last 24 Hours 06/22/20 06/22/20 06/22/20 06/22/20 15:00 19:02 20:00 23:00 Temp 99.1 98.5 97.0 99.1 98.5 97.0 Pulse 83 69 76 Resp 18 18 18 B/P (MAP) 127/78 (94) 163/91 (115) 150/88 (108) Pulse Ox 98 99 95 O2 Delivery Room Air Room Air Room Air Room Air 06/23/20 06/23/20 06/23/20 06/23/20 03:00 07:00 08:00 09:13 Temp 101.0 97.8 101.0 97.8 Pulse 86 101 101 Resp 18 16 B/P (MAP) 135/85 (102) 130/88 (102) 130/88 Pulse Ox 95 99 O2 Delivery Room Air Room Air Room Air 06/23/20 06/23/20 06/23/20 09:14 09:15 11:00 Temp 98.4 98.4 Pulse 101 101 66 Resp 16 B/P (MAP) 130/88 130/88 123/85 (98) Pulse Ox 94 O2 Delivery Room Air Intake and Output 06/22/20 06/22/20 06/23/20 15:00 23:00 07:00 Intake Total 360 ml 240 ml Output Total 4500 ml 1850 ml Balance 360 ml -4260 ml -1850 ml Nutrition Consultation Dietary Evaluation: Recommendations by RD: Dietary education by RD Comments: Continue w/cardiac diet as ordered, honor food preferences, and provide snacks as requested continue Ensure (chocolate) w/lunch and added strawberry with dinner Expected Outcomes/Goals: diet advancement - met, new goal established New goal 06/20: PO intake to meet >75% est needs- met, goal ongoing Interpretation of weight loss: >7.5% in 3 months Malnutrition Findings: Food and Nutrition Intake (Mod: <75% est energy req 7days Weight Status: Appropriate Justicifation of Admission Dx: Justifications for Admission: Justification of Admission Dx: Yes RALPH SEXTON MD Jun 23, 2020 14:28
[2020-06-23 15:00] VITALS: BP 139/82
[2020-06-23 19:00] VITALS: BP 144/89
--- NOTE | 2020-06-23 19:00 | NUR ---
Pt.'s states she does not feel it is safe for her (patient) to be at home by himself if they decide to discharge him tomorrow (Saturday) or this weekend. She states they live in a 2 story home with stairs and within walking distance to the liquor store. 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 Per this RN, patient is still very unsteady on his feet and does not have the physical capacity to be left home alone.
[2020-06-23] MEDS: ALBUTEROL SULFATE 2.5 MG/3 ML NEBU. NEB PRN (20:15)
[2020-06-23] MEDS: ENOXAPARIN 40 MG/0.4 ML SYRINGE. SQ SCH (20:57)
[2020-06-23 23:00] VITALS: BP 133/67
[2020-06-24 03:00] VITALS: BP 100/67
[2020-06-24 07:37] VITALS: BP 141/90
[2020-06-24] MEDS: LORazepam 1 MG TABLET PO SCH ×2 (08:28→14:18)
[2020-06-24] MEDS: FLUoxetine HCL 20 MG CAPSULE PO SCH (08:29)
[2020-06-24] MEDS: amLODIPine BESYLATE 5 MG TABLET PO SCH (08:30)
[2020-06-24] MEDS: GABAPENTIN 300 MG CAPSULE. PO SCH ×2 (08:32→14:18)
[2020-06-24] MEDS: FOLIC ACID 1 MG TABLET. PO SCH (08:32)
[2020-06-24] MEDS: LISINOPRIL 20 MG TABLET PO SCH (08:32)
[2020-06-24] MEDS: ATENOLOL 50 MG TABLET. PO SCH (08:32)
[2020-06-24] MEDS: CETIRIZINE HCL 10 MG TABLET. PO SCH (08:33)
[2020-06-24] MEDS: MULTIVITAMIN with MINERAL TABLET. PO SCH (08:33)
[2020-06-24] MEDS: NICOTINE 21MG PATCH. TD SCH (08:33)
[2020-06-24] MEDS: POTASSIUM CL 40MEQ IN 0.9%NACL 1,000 ML IV SCH (10:30)
[2020-06-24 11:02] VITALS: BP 107/68
--- NOTE | 2020-06-24 11:09 | NUR ---
REUBEN following. Discussed with RN, pt's reporting she does not think pt should discharge home today or over the weekend because she does not feel it is safe because they have stairs at home and their home is walking distance to a liquor store. REUBEN discussed with SSUrmila, pt's was told multiple times that pt does not have insurance and we cannot keep him here because of the possibility of him buying alcohol after discharge. [facility] will contact pt when he discharges home for treatment. REUBEN discussed with RN. Anticipate discharge home today with self care.
[2020-06-24] MEDS ORDERED: LORA-434 PO (13:19)
[2020-06-24 15:00] VITALS: BP 129/80
--- NOTE | 2020-06-24 15:36 | PDOC3 ---
Discharge Summary Visit Information Date of Admission: Jun 15, 2020 Date of Discharge: Jun 24, 2020 Admitting Diagnosis Comment: Acute alcohol withdrawal Acute electrolyte derangement Acute metabolic encephalopathy Concern for Wernicke's encephalopathy Acute syncopal episode Multiple falls Asthma Hypertension Final Diagnosis Problems Medical Problems: (1) Alcohol withdrawal delirium Status: Acute (2) Delirium tremens Status: Acute Acute Hypoxic Resp Failure, resolved Acute Encephalopathy secodary to EtOH withdrawal, resolved Severe EtOH Withdrawal with hx of EtOH seizure Hypokalemia replaced Hypomagnesemia replaced Recent Incarceration Brief Hospital Course Allergies Allergies Coded Allergies Type Severity Reaction Last Updated Verified No Known Drug Allergies 03/24/20 No Vital Signs Vital Signs Date Time Temp Pulse Resp B/P (MAP) Pulse Ox O2 Delivery O2 Flow Rate FiO2 06/24/20 11:02 98.0 69 18 107/68 (81) 96 Room Air 98.0 Brief Hospital Course History and Physical Date of Admission: Date of Admission DATE: 06/15/20 TIME: 20:30 History of Present Illness: HPI: Patient is a 55-year-old male with past medical history of GERD, hypertension, and heavy chronic alcohol abuse for many years who is brought to the ED after being found unresponsive at home by her daughter. Most of the history was obtained from the patient's who states that the patient was arrested for DUI the day before and he has not had an alcoholic drink since released from skilled nursing. When found down at home, there was no incontinence or stooling. Patient's states that he is a severe alcoholic drinks about 30-50 beers per day. He has multiple falls at home and has had multiple ecchymosis on his body. Currently upon questioning the patient is only able to respond to his name. But he does not know the location of the time. He is extremely agitated and distracted with questioning. Patient initially admitted to the floor and subsequently required ICU due to acute hypoxemic respiratory failure. Pulmonology was consulted at the present time and BiPAP was initiated. The patient was placed on the Precedex drip due t o his agitation from his alcohol withdrawal. Patient subsequently was able to be weaned off all drips and his symptoms improved. 06/20/2020 Patient seen and examined He is in the ICU and very frail and weak His is present Discussed with RN Discussed with case management Chart reviewed He is now off Precedex 06/21/2020 Patient seen and examined Chart reviewed Discussed with RN 06/22/2020 Patient seen and examined, up in chair with PT/OT Chart reviewed Discussed with RN Discussed with PT/OT 06/23/2020 Patient still seems somewhat shaky. Long conversation took place regarding the importance of obtaining sobriety. The patient has had attempts in the past to stay sober for unfortunately events in life have made him go "over the age". I will encourage more ambulation today and he seems to be quite motivated in order to do that. Hopefully he will be able to be discharged soon 06/24/2020 Patient was able to ambulate well with physical therapy prior to discharge, he continued to complain of discomfort due to his neuropathy. I have encouraged him to continue with his gabapentin and thiamine and folate will be supplemented for him in the outpatient setting. The patient will also have a prescription of Ativan and we discussed the importance of abstaining from alcohol and the concomitant use of benzodiazepines during this combination may be fatal and he seems to acknowledge and understand the consequences. The patient seems to be quite driven to quit drinking and hopefully he obtains sobriety after this hospi queta stay. All of his concerns were addressed to the best of my abilities prior to discharge greater than 35 minutes were spent in the discharge process the patient counseling coordination of care and arrangement for a safe discharge Gen.: well-developed well-nourished in no apparent distress Head: Normal shape atraumatic Eyes: Pupils equal reactive to light and accommodation, normal conjunctivae and lids Ears: Normal shape Nose: Normal shape no trauma Mouth: No exudates of the back of throat no thrush no lesions Neck: Supple no JVD no carotid bruit or lymphadenopathy no thyromegaly Chest: Lungs clear to auscultation with good inspiratory effort no crackles rales or rhonchi Cardiovascular: S1-S2 regular rhythm no murmurs gallops or rubs Abdomen: Bowel sounds present soft nontender no hepatosplenomegaly appreciated sign Extremities: No clubbing no cyanosis no edema peripheral pulses palpated bilaterally Neurological: Alert awake oriented in person time place and situation, cranial nerves II through XII intact, no motor or sensory deficits appreciated Psych: Appropriate mood, cooperative Discharge Information Condition at Discharge: Improved Follow Up: Weeks Disposition/Orders: D/C to Home Scheduled Albuterol Sulfate (Ventolin Hfa Inhaler) 18 Gm Hfa.aer.ad, 2 PUFF INH QID for FO R ASTHMA, Ref 0 (Reported) Entered as Reported by: SATCEY CHEATHAM on 06/22/20914 Last Taken: Unknown Dose on Unknown Date & Time Last Action: Reviewed on 06/22/20914 by STACEY CHEATHAM Amlodipine Besylate (Norvasc) 5 Mg Tablet, 1 TAB PO DAILY for bp, #30 Ref 5 (Reported) Entered as Reported by: VLEMA CRUMP on 06/16/20909 Last Action: Continued on 06/20/20 1038 by JOSE L GIL Atenolol (Atenolol) 100 Mg Tablet, 1 TAB PO DAILY for bp, #30 Ref 5 (Reported) Entered as Reported by: VELMA CRUMP on 06/16/20909 Last Action: Converted on 06/20/20 1038 by JOSE L GIL Fluoxetine Hcl (Fluoxetine Hcl) 20 Mg Capsule, 1 CAP PO DAILY for depression, #90 Ref 1 (Reported) Entered as Reported by: VELMA CRUMP on 06/16/20909 Last Action: Continued on 06/20/20 1038 by JOSE L GIL Gabapentin (Gabapentin ) 300 Mg Capsule, 300 MG PO TID for NEUROGENIC PAIN, (Reported) Entered as Reported by: VELMA CRUMP on 06/16/20909 Last Action: Continued on 06/20/20 1038 by JOSE L GIL Omeprazole (Omeprazole) 40 Mg Capsule.dr, 1 CAP PO DAILY for gerd, #30 Ref 3 (Reported) Entered as Reported by: VELMA CRUMP on 06/16/20909 Last Action: New Order on 06/16/20909 by VELMA CRUMP Quinapril Hcl (Quinapril Hcl) 40 Mg Tablet, 1 TAB PO DAILY for bp for 30 Days, #30 Ref 0 (Reported) Entered as Reported by: VELMA CRUMP on 06/16/20909 Last Action: Converted on 06/20/20 1038 by JOSE L GIL Scheduled PRN Lorazepam (Ativan) 1 Mg Tablet, 2 MG PO TID PRN for ALCOHOL WITHDRAWAL for 7 Days, #20 Prescribed by: RALPH SEXTON MD on 06/24/20 1319 Justicifation of Admission Dx: Justifications for Admission: Justification of Admission Dx: Yes RALPH SEXTON MD Jun 24, 2020 15:36
--- NOTE | 2020-06-24 18:17 | NUR ---
Discharge Note: JHONATAN RAMON [address] [place] [address] Discharge instructions and discharge home medications reviewed with Patient and a copy given. All questions have been answered and understanding verbalized. The following instructions and handouts were given: diet, activity, medication list and follow up instructions provided to patient and patient's . Discontinued lines and drains: peripheral IV discontinued on previous date. Patient discharged to Home or Self Care with Spouse via Wheelchair
== END 2020-06-24 18:19 | disposition home or self-care (01) | DRG 896 ==
LOC: ER 17:36 → ED HOLD 18:53 → 1 WEST ICU 21:21 → 4 NORTH 06-22 14:55
PROVIDERS: ADMIT Internal Medicine; ATTEND Internal Medicine
PROC: 5A09457 Assistance with Respiratory Ventilation, 24-96 Consecutive Hours, Continuous Positive Airway Pressure (ICD-10-PCS; principal; 2020-06-15)
DX: F10.231 Alcohol dependence with withdrawal delirium (principal); J96.01 Acute respiratory failure with hypoxia; G93.41 Metabolic encephalopathy; E87.1 Hypo-osmolality and hyponatremia; D69.6 Thrombocytopenia, unspecified; E83.42 Hypomagnesemia; E87.6 Hypokalemia; G62.9 Polyneuropathy, unspecified; I10 Essential (primary) hypertension; J45.909 Unspecified asthma, uncomplicated; K21.9 Gastro-esophageal reflux disease without esophagitis; R29.6 Repeated falls; Z20.828 Contact with and (suspected) exposure to other viral communicable diseases; Z96.641 Presence of right artificial hip joint
CPT/HCPCS: 36415; 36600; 70450; 80048; 80053; 80076; 82607; 82805; 83735; 84100; 84132; 85007; 85025; 85027; 85610; 85730; 93005; 94640; 94660; 94760; 96365; 96375; 99291; G0480; J0360; J1200; J1630; J1650; J2060; J3411; J3475; J3480; J3490; J7030; J7060; J7120; 97116-GP; 97535-GO; G0378; J7613; U0003-CS

== ENCOUNTER → 2021-01-03 | Outpatient (CLI) | payer OTHER ==
[~2021-01-03] MED LIST changes: +AMLO5TAB4 PO; +ATEN100T PO; +FLUO20CA20 PO; +GABA300C18 PO; +OMEP40CA7 PO; +QUIN40TA16 PO; +VENTOLIN HFA18 GM INH
--- NOTE | 2021-01-03 16:28 | RAD ---
EXAM: 2 Views Left Shoulder DATE: 01/03/2021 8:49 AM INDICATION: Reason: LEFT SHOULDER PAIN THAT RADIATES DOWN LEFT ARM, NO DEFINITE INJURY / Spl. Instruc tions: / History: COMPARISON: No Prior FINDINGS: There is no evidence for acute fracture or dislocation. AC joint is congruent. Humeral head is not hi gh riding. IMPRESSION: 1. No acute fracture or dislocation. Electronically signed by: Jaspal Suazo MD (01/03/2021 4:26 PM) [id number]
== END ==
LOC: RAD 08:37
PROVIDERS: ATTEND Anesthesiology Pain Medicine
DX: M25.512 Pain in left shoulder (principal)
CPT/HCPCS: 73030